=== PATIENT | female | born 1955 | race Caucasian/White ===

== ENCOUNTER 2020-09-25 08:11 | Inpatient (IN) | payer MEDICAID, SELFPAY ==
--- NOTE | 2020-09-23 19:25 | NUR ---
PT WAS ENDORSED BY [facility] NURSE. PT IS CURRENTLY AWAKE AND ALERT. STATED THAT SHE IS HUNGRY. DINNER IS AT BEDSIDE. PT STATED THAT SHE WILL EAT IN A LITTLE BIT. DENIES PAIN.
[~2020-09-25] VITALS: Ht 157.5 cm; Wt 59.0 kg
[2020-09-25 08:15] VITALS: BP 126/66
--- NOTE | 2020-09-25 09:55 | NUR ---
PT MOVED TO BED 6.
--- NOTE | 2020-09-25 10:00 | NUR ---
BIBA FROM HOME C/O HYPOGLYCEMIA, PT WAS FOUND BY FAMILY AT 0500 UNRESPONSIVE BY FAMILY. BS 50 UPON EMS ARRIVAL. PT RECEIVED 1MG OF GLUCAGON, AND D10 VIA IV RAC 20G BLOOD SUGAR 82. AT ER PT AAOX4. HX DM, HTN, ARTHRITIS.
--- NOTE | 2020-09-25 10:20 | NUR ---
Note undone in EDM - 09/25/20 at 1058 by MEDCS1 BIBA FROM HOME C/O HYPOGLYCEMIA, PT WAS FOUND BY FAMILY AT 0500 UNRESPONSIVE BY FAMILY. BS 50 UPON EMS ARRIVAL. PT RECEIVED 1MG OF GLUCAGON, AND D10 VIA IV RAC 20G. AT ER PT AAOX4. HX DM, HTN, ARTHRITIS.
--- NOTE | 2020-09-25 11:28 | NUR ---
LAB AT BEDSIDE
[2020-09-25 11:47] LABS: HEMATOCRIT 32.5 % (36-48); HEMOGLOBIN 10.1 g/dL (12.0-16.0); MEAN CORPUSCULAR HEMOGLOBIN 23 pg (27-31); MEAN CORPUSCULAR HGB CONC 31 g/dL (33-37); MEAN CORPUSCULAR VOLUME 75.2 fL (80-94); PLATELET COUNT (AUTO) 410 K/uL (140-450); RED BLOOD CELL COUNT(AUTO) 4.32 MIL/uL (4.20-5.40); RED CELL DISTRIBUTION WIDTH 17.8 % (11.6-13.7)
[2020-09-25 11:55] LABS: ANION GAP 15.5 (8-16); CARBON DIOXIDE 23.9 mmol/L (21-32); CREATININE 0.5 mg/dL (0.6-1.3); POTASSIUM 3.4 mmol/L (3.5-5.1)
[2020-09-25 12:05] LABS: WHITE BLOOD COUNT (AUTO) 34.8 K/uL (4.8-10.8)
[2020-09-25 12:06] LABS: LYMPHOCYTES % (MANUAL) 2 % (20-46); MONOCYTES % (MANUAL) 7 % (5-12)
[2020-09-25] MEDS ORDERED: NACL 0.9% 2,000 ML IV ONE (12:45)
[2020-09-25] MEDS ORDERED: cefTRIAXone 1,000 MG VIAL ONE (12:58)
--- NOTE | 2020-09-25 13:01 | NUR ---
GENERALIZED RASHES . NOTIFIED DR JACQUES.
--- NOTE | 2020-09-25 15:37 | NUR ---
Sabra jones in [facility] - 09/25/20 at 1634 by MED1 PT CAN'T PROVIDE URINE AT THIS TIME.
[2020-09-25] MEDS ORDERED: DOCUSATE SODIUM 100 MG GELCAP PO PRN (15:50)
[2020-09-25] MEDS ORDERED: ALBUTEROL HFA MDI 90 MCG/ACTUATION 8 GM INH PRN (15:50)
[2020-09-25 16:28] LABS: BILIRUBIN,URINE NEGATIVE (NEGATIVE); BLOOD, URINE NEGATIVE (NEGATIVE); COLOR,URINE YELLOW (YELLOW); LEUKOCYTE ESTERASE ,URINE TRACE (NEGATIVE); NITRITE, URINE POSITIVE (NEGATIVE); PH,URINE 5.5 (5.0-9.0); UGLUCOSE NEGATIVE (NEGATIVE)
[2020-09-25 16:29] LABS: APPEARANCE,URINE HAZY (CLEAR)
--- NOTE | 2020-09-25 16:34 | NUR ---
MRSA & COVID CARA SWAB COLLECTED.
[2020-09-25 16:41] LABS: RBC,URINE NONE SEEN /HPF (0-5)
[2020-09-25 16:59] LABS: CHOL/HDL RATIO 2.9 (1-4.5); FREE T4 (FREE THYROXINE) 1.28 ng/dL (0.76-1.46); THYROID STIMULATING HORMONE 0.55 uIU/mL (0.34-3.74)
[2020-09-25] MEDS: DEXT 5% /NACL 0.9% 1,000 ML IV SCH (17:08)
[2020-09-25] MEDS: BLOOD GLUCOSE MONITORING 1 DEV DEV FS SCH ×2 (17:09→21:07)
[2020-09-25] MEDS ORDERED: DEXTROSE 50% 50 ML SYR IVP PRN (17:20)
[2020-09-25] MEDS: DEXTROSE 50% 50 ML SYR IVP PRN ×2 (17:34→21:08)
--- NOTE | 2020-09-25 17:34 | NUR ---
BS 38, GAVE D5% 50ML IV.
--- NOTE | 2020-09-25 17:38 | NUR ---
PTMOVED TO BED 12.
--- NOTE | 2020-09-25 17:50 | NUR ---
BLOOD SUGAR 98 AT THIS TIME.
[2020-09-25] MEDS ORDERED: INSULIN LISPRO SLIDING SCALE 100 UNITS/ML VIAL SUBQ PRN (18:15)
--- NOTE | 2020-09-25 19:28 | NUR ---
Pt report given to areli amin. Transfer of care at this time.
--- NOTE | 2020-09-25 19:30 | NUR ---
Report received from RAS Pagan for continuation of care.
--- NOTE | 2020-09-25 20:10 | NUR ---
PT RESTING IN BED, LOCKED AND IN LOWEST POSITION , HOB ELEVATED , SIDE RAIL X 2 FOR PT SAFETY. VSS.
[2020-09-25] MEDS ORDERED: BLOOD GLUCOSE MONITORING 1 DEV DEV FS SCH (21:00)
--- NOTE | 2020-09-25 21:00 | NUR ---
Sabra jones in [facility] - 09/26/20 at 0535 by NANCY PT ATE 40% OF DINNER.
--- NOTE | 2020-09-25 21:07 | NUR ---
PT CURRENT [facility] 24 - INITIATE PROTOCOL , ADMINISTER D50 IVP AT THIS TIME. PT REPOSITIONED , SITTING UPRIGHT AND DINNER PROVIDED AT THIS TIME WELL.
--- NOTE | 2020-09-25 22:00 | NUR ---
PT ATE 40% OF DINNER.
--- NOTE | 2020-09-25 23:50 | NUR ---
20G IV IN RT A/C INFILTRATED .IV removed, catheter intact and site benign. Applied folded 4x4 gauze and tape to stop bleeding. Applied warm compresses on infiltration site. New IV placed on left wrist 22g. New IV flushed w/ 10cc NS , no redness, swelling or pain noted at IV site.
--- NOTE | 2020-09-26 01:00 | NUR ---
PT RESTING IN BED, LOCKED AND IN LOWEST POSITION ,HOB ELEVATED, SIDE RAIL X2 FOR PT SAFETY. PT STATES NO PAIN AT RT A/C AT THIS TIME.
--- NOTE | 2020-09-26 01:10 | NUR ---
PT AMBULATED TO RESTROOM W/ STEADY GAIT.
--- NOTE | 2020-09-26 01:26 | NUR ---
PT ACTING SLIGHTLY ALTERED. ACCU CHECK ADMINISTERED CURRENT FBS 29. PER PROTOCOL ADMINISTERED D50 IVP . PT GIVEN 2 OJ BOXES AT THIS TIME. NO ACUTE DISTRESS NOTED.
--- NOTE | 2020-09-26 02:21 | NUR ---
Sabra jones in [facility] - 09/26/20 at 0232 by NANCY PT AMBULATED TO RESTROOM W/ STEADY GAIT.
--- NOTE | 2020-09-26 02:31 | NUR ---
PT A/O X4. PT AMBULATED TO RESTROOM W/ STEADY GAIT.
[2020-09-26] MEDS: DEXTROSE 50% 50 ML SYR IVP PRN ×2 (02:33→07:13)
--- NOTE | 2020-09-26 03:02 | NUR ---
PT FBS 60. PT PROVIDED 2 BOXES OF OJ. WILL CONTINUE TO MONITOR.
--- NOTE | 2020-09-26 04:10 | NUR ---
PT AMBULATED TO RESTROOM W/ STEADY GAIT.
--- NOTE | 2020-09-26 04:50 | NUR ---
PT RESTING IN BED, LOCKED AND IN LOWEST POSITION , HOB ELEVATED, SIDE RAIL X 2. RR EVEN AND UNLABORED. VSS.
--- NOTE | 2020-09-26 07:07 | NUR ---
PT CURRENT FBS 57 - PER DIABETIC PROTOCOL ADMINISTERED D50% IVP.
[2020-09-26] MEDS: BLOOD GLUCOSE MONITORING 1 DEV DEV FS SCH ×4 (07:10→21:54)
--- NOTE | 2020-09-26 07:20 | NUR ---
PT STATED SHE FEELS STEADY - PT AMBULATED TO RESTROOM W/ STEADY GAIT.
--- NOTE | 2020-09-26 07:24 | NUR ---
REPORT GIVEN TO RAS ROUSSEAU FOR TRANSFER OF CARE.
--- NOTE | 2020-09-26 07:25 | NUR ---
Report received from RAS Tam. Transfer of care at this time.
--- NOTE | 2020-09-26 07:30 | NUR ---
Pt resting, HOB elevated, no complaints at this time. VSS, will continue to monitor.
--- NOTE | 2020-09-26 08:02 | NUR ---
Pt ambulated to restroom with a steady gait.
[2020-09-26 08:03] LABS: BASOPHILS # (AUTO) 0.2 K/uL (0.00-0.22); BASOPHILS % (AUTO) 0.7 % (0.0-2.0); EOSINOPHILS # (AUTO) 0.4 K/uL (0-0.4); EOSINOPHILS % (AUTO) 1.4 % (0.0-4.0); HEMATOCRIT 26.8 % (36-48); HEMOGLOBIN 8.5 g/dL (12.0-16.0); LYMPHOCYTES # (AUTO) 1.6 K/uL (2.5-16.5); LYMPHOCYTES % (AUTO) 6.4 % (20.5-51.1); MEAN CORPUSCULAR HEMOGLOBIN 24 pg (27-31); MEAN CORPUSCULAR HGB CONC 32 g/dL (33-37); MEAN CORPUSCULAR VOLUME 74.2 fL (80-94); MONOCYTES # (AUTO) 1.2 K/uL (0.8-1.0); MONOCYTES % (AUTO) 4.8 % (1.7-9.3); NEUTROPHILS # (AUTO) 21.1 K/uL (1.8-7.7); NEUTROPHILS % (AUTO) 86.7 % (42.2-75.2); PLATELET COUNT (AUTO) 425 K/uL (140-450); RED BLOOD CELL COUNT(AUTO) 3.61 MIL/uL (4.20-5.40); RED CELL DISTRIBUTION WIDTH 17.6 % (11.6-13.7); WHITE BLOOD COUNT (AUTO) 24.3 K/uL (4.8-10.8)
--- NOTE | 2020-09-26 08:10 | NUR ---
Pt provided with breakfast tray, HOB elevated.
[2020-09-26] MEDS: DEXT 5% /NACL 0.9% 1,000 ML IV SCH (08:40)
--- NOTE | 2020-09-26 09:17 | NUR ---
Dr. Parker at pt bedside for evaluation, possible discharge.
--- NOTE | 2020-09-26 09:28 | NUR ---
PATIENT HAS BEEN SCREENED AND CATEGORIZED MODERATE NUTRITION RISK. PATIENT WILL BE SEEN WITHIN 3-5 DAYS OF ADMISSION. 09/28/20 09/30/[address]
[2020-09-26] MEDS ORDERED: cefTRIAXone 1,000 MG VIAL ONE (09:38)
[2020-09-26 09:47] LABS: ANION GAP 14.2 (8-16); CARBON DIOXIDE 23.7 mmol/L (21-32); CREATININE 0.5 mg/dL (0.6-1.3)
[2020-09-26] MEDS: ASCORBIC ACID 500 MG TAB PO SCH (09:52)
[2020-09-26] MEDS: ZINC SULF 220 MG CAP PO SCH (09:53)
[2020-09-26] MEDS: AZITHROMYCIN 250 MG TAB PO SCH (09:53)
--- NOTE | 2020-09-26 10:05 | NUR ---
CRITICAL LAB VALUE called Potassium level 2.9
[2020-09-26 10:06] LABS: POTASSIUM 2.9 mmol/L (3.5-5.1)
[2020-09-26] MEDS: POTASSIUM CHLORIDE 10 MEQ TABER PO PRN (11:02)
--- NOTE | 2020-09-26 11:40 | NUR ---
Sabra jones in ED - 09/26/20 at 1208 by MED1 Spoke with pharmacy for insulin drip per order.
--- NOTE | 2020-09-26 12:07 | NUR ---
Pt resting, repositioned self for comfort, VSS, will continue to monitor.
--- NOTE | 2020-09-26 14:39 | NUR ---
Dr. Parker at pt bedside, pt will not be discharged, WBC increased requires admission.
--- NOTE | 2020-09-26 14:55 | NUR ---
Pt walked to restroom with a steady gait.
--- NOTE | 2020-09-26 15:00 | NUR ---
Metalworking Instructor at pt bedside for evaluation.
--- NOTE | 2020-09-26 17:41 | NUR ---
Spoke with Brandy Hawkins [phone] for pt updates.
--- NOTE | 2020-09-26 18:09 | NUR ---
Pt ambulated to bathroom, VSS, will continue to monitor.
--- NOTE | 2020-09-26 19:27 | NUR ---
Gave report to RAS Silver. Transfered care at this time.
--- NOTE | 2020-09-26 19:37 | NUR ---
RECIVED REPORT FROM SOHAM MCGINNIS. CONTINUATION OF CARE. PATIENT LORENZO TO AMBUALTE TO RESTROOM WITH STEADY GAIT. PATIENT REMAINS ON RIVER TRANSPORTATION WORKER. VSS AT THIS TIME. PT DENIES PAIN AT THIS TIME.
--- NOTE | 2020-09-26 21:48 | NUR ---
PATIENT EATING DINNER AT BEDISDE. PATIENT ATE 100% OF FOOD. PATIENT ABLE TO AMBULATE TO RESTROOM WITH STEADY GAIT. PT PLACED ON POULTRY FARMER MEAT. VSS. DENIES PAIN AT THIS TIME. CALL LIGHT AT BEDSIDE. BED IS LOCKED AND IN LOWEST POSITION.
--- NOTE | 2020-09-27 01:12 | NUR ---
Patient appears to be resting comfortably in bed. Vital Signs within normal limits. Respirations even and unlabored.
[2020-09-27] MEDS: DEXT 5% /NACL 0.9% 1,000 ML IV SCH ×3 (02:02→19:00)
--- NOTE | 2020-09-27 04:16 | NUR ---
Patient appears to be resting comfortably in bed. Vital Signs within normal limits. Respirations even and unlabored.
[2020-09-27 07:12] LABS: T4 (THYROXINE) 6.5 ug/dL (4.5-12.0)
--- NOTE | 2020-09-27 07:30 | NUR ---
RECIEVED REPORT FROM RAS ZAPIEN. TRANSFER OF CARE AT THIS TIME.
--- NOTE | 2020-09-27 07:30 | NUR ---
TRANSFER OF CARE GIVEN TO EDDIE MCGINNIS.
[2020-09-27] MEDS: BLOOD GLUCOSE MONITORING 1 DEV DEV FS SCH ×4 (07:44→21:53)
[2020-09-27 08:32] LABS: BASOPHILS # (AUTO) 0.2 K/uL (0.00-0.22); EOSINOPHILS # (AUTO) 0.7 K/uL (0-0.4); EOSINOPHILS % (AUTO) 4.3 % (0.0-4.0); HEMATOCRIT 26.1 % (36-48); HEMOGLOBIN 8.2 g/dL (12.0-16.0); LYMPHOCYTES # (AUTO) 1.8 K/uL (2.5-16.5); MEAN CORPUSCULAR HEMOGLOBIN 23 pg (27-31); MEAN CORPUSCULAR HGB CONC 32 g/dL (33-37); MEAN CORPUSCULAR VOLUME 74.4 fL (80-94); MONOCYTES # (AUTO) 1.2 K/uL (0.8-1.0); MONOCYTES % (AUTO) 7.3 % (1.7-9.3); NEUTROPHILS # (AUTO) 12.2 K/uL (1.8-7.7); NEUTROPHILS % (AUTO) 76.4 % (42.2-75.2); PLATELET COUNT (AUTO) 430 K/uL (140-450); RED BLOOD CELL COUNT(AUTO) 3.51 MIL/uL (4.20-5.40); RED CELL DISTRIBUTION WIDTH 17.7 % (11.6-13.7)
[2020-09-27 08:57] LABS: ANION GAP 11.8 (8-16); CARBON DIOXIDE 26.8 mmol/L (21-32); CREATININE 0.5 mg/dL (0.6-1.3); POTASSIUM 3.6 mmol/L (3.5-5.1)
--- NOTE | 2020-09-27 09:32 | NUR ---
report given to RAS Valladares via phone
--- NOTE | 2020-09-27 09:32 | NUR ---
RECEIVED REPORT FROM ER NURSE. PT HAS R WRIST 20G INFUSING D5NS AT 60ML/H, SKIN INTACT, AZERBAIJANI SPEAKING. PT ON ROOM AIR, WILL AWAIT PT'S ADMISSION FROM ER.
--- NOTE | 2020-09-27 09:45 | NUR ---
Patient will be admitted to care of dr. sandoval. Admited to tele. Will go to room 111b. Belongings list completed. Report to brennan dykes.
--- NOTE | 2020-09-27 09:49 | NUR ---
PT ARRIVED IN ROOM, PT IS STABLE, OBTAINED MRSA SWAB, INTRODUCE PT TO ROOM, SAFETY MEASURES IN PLACE, WILL CONTINUE TO MONITOR.
[2020-09-27] MEDS: AZITHROMYCIN 250 MG TAB PO SCH (10:27)
[2020-09-27] MEDS: ASCORBIC ACID 500 MG TAB PO SCH (10:27)
[2020-09-27] MEDS: ZINC SULF 220 MG CAP PO SCH (10:28)
--- NOTE | 2020-09-27 10:31 | NUR ---
ADMINISTERED SCHEDULED MEDICATION, MEDICATION EDUCATION PROVIDED. PT TOLERATED WELL. DR LOPEZ EXPLAINED TO PT THAT SHE WILL STAY ONE MORE DAY WBC STILL ELEVATED. PT VERBALIZED UNDERSTANDING. PT IS STABLE, WILL CONTINUE TO MONITOR.
--- NOTE | 2020-09-27 11:48 | NUR ---
ADMINISTERED SCHEDULED MEDICATION, MEDICATION EDUCATION PROVIDED. PT TOLERATED WELL. PT IS STABLE, WILL CONTINUE TO MONITOR.
[2020-09-27] MEDS: INSULIN LISPRO SLIDING SCALE 100 UNITS/ML VIAL SUBQ PRN ×2 (12:20→21:55)
--- NOTE | 2020-09-27 12:20 | NUR ---
ADMINISTERED 2 UNITS OF HUMALOG FOR BLOOD GLUCOSE OF 157, MEDICATION EDUCATION PROVIDED. PT TOLERATED WELL. PT IS STABLE, WILL CONTINUE TO MONITOR.
[2020-09-27 16:00] VITALS: BP 120/66
--- NOTE | 2020-09-27 16:30 | NUR ---
NO HUMALOG COVERAGE, PT IS STABLE, WILL CONTINUE TO MONITOR.
--- NOTE | 2020-09-27 19:20 | NUR ---
ENDORSE PT TO NIGHT NURSE FOR CONTINUITY OF CARE, PT IS STABLE
--- NOTE | 2020-09-27 19:55 | NUR ---
PT IS LAYING IN BED WATHVING TV. BREATHING IS NORMAL AND UNLABORED. PT DENIES PAIN. ABLE TO AMBULATE TO THE BATHROOM. BED IS ON LOW. CALL LIGHT WITHIN REACH. BEDSIDE TABLE PUSHED NEXT TO THE BED. PT EDUCATED ON THE USE OF THE CALL. VERBALIZED UNDERSTANDING. STABLE AT THIS TIME. WILL CONTINUE TO MONITOR
[2020-09-27 20:00] VITALS: BP 126/73
--- NOTE | 2020-09-27 20:55 | NUR ---
PT FINISHED EATING HER DINNER. BLOOD SUGAR IS 179. PT WILL RECEIVE 2 UNITS OF HUMALOG COVERAGE. PT DENIES FEELING DIZZY. WILL CONTINUE TO MONITOR
--- NOTE | 2020-09-27 23:00 | NUR ---
PT IS ASLEEP. BREATHING IS NORMAL AND UNLABORED. PT DOES NOT LOOK TO BE IN PAIN. BED IS IN LOW POSITION. CALL LIGHT WITHIN REACH. PT STABLE AT THIS TIME. WILL CONTINUE TO MONITOR
--- NOTE | 2020-09-28 01:00 | NUR ---
PT CALLED TO USE BATHROOM. PT VOIDED YELLOW AND CLEAR URINE. PT DENIED TROUBLE USING THE BATHROOM. GAIT IS STABLE AND STRONG. BED IS IN LOW POSITION. CALL LIGHT WITHIN REACH. PT STABLE AT THIS TIME. WILL CONTINUE TO MONITOR
--- NOTE | 2020-09-28 03:21 | NUR ---
PT IS ASLEEP. IV PUMP NOT ALARMING. PT NOT IN PAIN. BED IS IN LOW POSITION. CALL LIGHT WITHIN REACH. PT STABLE AT THIS TIME. WILL CONTINUE TO MONITOR
[2020-09-28 04:00] VITALS: BP 111/61
[2020-09-28] MEDS: ACETAMINOPHEN 325 MG TAB PO PRN (06:47)
[2020-09-28] MEDS: BLOOD GLUCOSE MONITORING 1 DEV DEV FS SCH ×4 (06:58→21:17)
[2020-09-28 07:19] LABS: BASOPHILS # (AUTO) 0.3 K/uL (0.00-0.22); BASOPHILS % (AUTO) 1.3 % (0.0-2.0); EOSINOPHILS # (AUTO) 0.5 K/uL (0-0.4); EOSINOPHILS % (AUTO) 2.4 % (0.0-4.0); HEMATOCRIT 26.8 % (36-48); HEMOGLOBIN 8.6 g/dL (12.0-16.0); LYMPHOCYTES # (AUTO) 2.8 K/uL (2.5-16.5); LYMPHOCYTES % (AUTO) 12.9 % (20.5-51.1); MEAN CORPUSCULAR HEMOGLOBIN 24 pg (27-31); MEAN CORPUSCULAR HGB CONC 32 g/dL (33-37); MEAN CORPUSCULAR VOLUME 73.3 fL (80-94); MONOCYTES # (AUTO) 2.1 K/uL (0.8-1.0); MONOCYTES % (AUTO) 9.4 % (1.7-9.3); NEUTROPHILS # (AUTO) 16.2 K/uL (1.8-7.7); PLATELET COUNT (AUTO) 397 K/uL (140-450); RED BLOOD CELL COUNT(AUTO) 3.66 MIL/uL (4.20-5.40); RED CELL DISTRIBUTION WIDTH 17.7 % (11.6-13.7); WHITE BLOOD COUNT (AUTO) 21.9 K/uL (4.8-10.8)
[2020-09-28 07:20] LABS: ANION GAP 13.6 (8-16); CARBON DIOXIDE 26.9 mmol/L (21-32); CREATININE 0.6 mg/dL (0.6-1.3); POTASSIUM 3.5 mmol/L (3.5-5.1)
--- NOTE | 2020-09-28 07:40 | NUR ---
REC'D BEDSIDE ENDORSEMENT FROM NIGHTSHIFT NURSE. WILL CONT W/ POC.
[2020-09-28] MEDS: ASCORBIC ACID 500 MG TAB PO SCH (10:00)
[2020-09-28] MEDS: ZINC SULF 220 MG CAP PO SCH (10:01)
[2020-09-28] MEDS: AZITHROMYCIN 250 MG TAB PO SCH (10:01)
--- NOTE | 2020-09-28 10:26 | NUR ---
ADMINISTERED SCHEDULED MEDS PER MD ORDER. PATIENT TOLERATED WELL. MEDICATION EDUCATION REINFORCEMENT NEEDED D/T LANGUAGE BARRIER. SAFETY MEASURES IN PLACE. WILL CONT TO MONITOR.
[2020-09-28] MEDS: LEVOFLOXACIN 500 MG/D5W PREMIX 100 ML IV SCH (12:27)
[2020-09-28] MEDS: INSULIN LISPRO SLIDING SCALE 100 UNITS/ML VIAL SUBQ PRN (13:48)
--- NOTE | 2020-09-28 13:55 | NUR ---
ADMINISTERED PRN INSULIN FOR BG 154. PATIENT TOLERATED WELL. SAFETY MEASURES IN PLACE. WILL CONT TO MONITOR.
[2020-09-28 16:00] VITALS: BP 97/51
--- NOTE | 2020-09-28 16:30 | NUR ---
ADMINISTERED PRN INSULIN FOR BG 161; ADMINISTERED PRESCRIBED MEDS PER MD ORDER. PATIENT TOLERATED WELL. SAFETY MEASURES IN PLACE. WILL CONT TO MONITOR
--- NOTE | 2020-09-28 18:00 | NUR ---
HOURLY ROUNDING PERFORMED. PATIENT RESTING IN BED. VISIBLE RISE AND FALL OF CHEST. NO SIGNS OF DISTRESS. PATIENT DENIES PAIN. SAFETY MEASURES IN PLACE. WILL CONT TO MONITOR.
--- NOTE | 2020-09-28 19:32 | NUR ---
ENDORSED PATIENT TO NIGHTSHIFT NURSE FOR CONTINUITY OF CARE. PATIENT IS STABLE.
--- NOTE | 2020-09-28 19:35 | NUR ---
RECEIVED PT SLEEPING, EASILY AROUSABLE, AAOX4, DENIES ANY PAIN AND NO SOB NOTED, IVF INFUSING WELL, SAFETY MEASURES IN PLACE, CALL LIGHT WITHIN REACH.
[2020-09-28 20:00] VITALS: BP 98/54
--- NOTE | 2020-09-28 21:20 | NUR ---
PT AMBULATED TO BR WITH STEADY GAIT, VOIDED FREELY, BACK TO BED, BLOOD SUGAR CHECKED WITH 118 RESULT, DUE MEDICATION ADMINISTERED, ALL NEEDS ATTENDED.
--- NOTE | 2020-09-29 00:10 | NUR ---
PT SLEEPING, NO SIGNS OF DISTRESS, IVF INFUSING WELL, CONTINUE TO MONITOR CLOSELY.
[2020-09-29] MEDS: DEXT 5% /NACL 0.9% 1,000 ML IV SCH ×2 (01:55→20:18)
[2020-09-29 04:00] VITALS: BP 108/60
[2020-09-29] MEDS: BLOOD GLUCOSE MONITORING 1 DEV DEV FS SCH ×4 (06:30→20:39)
--- NOTE | 2020-09-29 07:18 | NUR ---
PT SLEEPING, NO SIGNS OF DISTRESS, REPORT GIVEN TO RAS SUMMERS FOR CONTINUITY OF CARE.
--- NOTE | 2020-09-29 07:20 | NUR ---
RECEIVED PATIENT FROM NIGHT NURSE. PATIENT IN BED SLEEPING, CHEST NOTED RISING. NO ACUTE S/S DISTRESS AT THIS TIME. RESP EVEN AND UNLABORED ON ROOM AIR. HOB ELEVATED. LFA 20G INFUSING D5NS 60ML/HR. SAFETY MEASURES IN PLACE. CALL LIGHT WITHIN REACH. WILL CONTINUE TO MONITOR.
--- NOTE | 2020-09-29 09:05 | NUR ---
PATIENT SITTING BY BEDSIDE EATING BREAKFAST. RESP EVEN AND UNLABORED ON ROOM AIR. C/O PAIN TO RIGHT FOOT. WILL MEDICATE APPROPRIATELY. LFA 20G INFUSING D5NS 60ML/HR. NO NOTED DISTRESS AT THIS TIME. MORNING ROUTINE MEDICATIONS GIVEN. PATIENT ABLE TO MAKE NEEDS KNOWN. SAFETY MEASURES IN PLACE. HOB ELEVATED. CALL LIGHT WITHIN REACH. WILL CONTINUE TO MONITOR.
[2020-09-29] MEDS: ZINC SULF 220 MG CAP PO SCH (09:06)
[2020-09-29] MEDS: ASCORBIC ACID 500 MG TAB PO SCH (09:07)
[2020-09-29] MEDS: AZITHROMYCIN 250 MG TAB PO SCH (09:07)
[2020-09-29 09:33] LABS: BASOPHILS # (AUTO) 0.1 K/uL (0.00-0.22); BASOPHILS % (AUTO) 0.5 % (0.0-2.0); EOSINOPHILS # (AUTO) 0.3 K/uL (0-0.4); EOSINOPHILS % (AUTO) 1.6 % (0.0-4.0); HEMATOCRIT 26.3 % (36-48); HEMOGLOBIN 8.3 g/dL (12.0-16.0); LYMPHOCYTES # (AUTO) 1.7 K/uL (2.5-16.5); LYMPHOCYTES % (AUTO) 9.4 % (20.5-51.1); MEAN CORPUSCULAR HEMOGLOBIN 23 pg (27-31); MEAN CORPUSCULAR HGB CONC 32 g/dL (33-37); MEAN CORPUSCULAR VOLUME 73.9 fL (80-94); MONOCYTES # (AUTO) 1.8 K/uL (0.8-1.0); MONOCYTES % (AUTO) 9.7 % (1.7-9.3); NEUTROPHILS # (AUTO) 14.2 K/uL (1.8-7.7); NEUTROPHILS % (AUTO) 78.8 % (42.2-75.2); PLATELET COUNT (AUTO) 305 K/uL (140-450); RED BLOOD CELL COUNT(AUTO) 3.56 MIL/uL (4.20-5.40); RED CELL DISTRIBUTION WIDTH 18.1 % (11.6-13.7); WHITE BLOOD COUNT (AUTO) 18.1 K/uL (4.8-10.8)
[2020-09-29 09:43] LABS: ANION GAP 11.3 (8-16); CARBON DIOXIDE 27.5 mmol/L (21-32); CREATININE 0.5 mg/dL (0.6-1.3)
[2020-09-29 09:46] LABS: MAGNESIUM 2.1 mg/dL (1.8-2.4); PHOSPHORUS 3.3 mg/dL (2.5-4.9)
[2020-09-29 10:07] LABS: POTASSIUM 2.8 mmol/L (3.5-5.1)
[2020-09-29] MEDS: ACETAMINOPHEN 325 MG TAB PO PRN ×2 (10:40→20:13)
[2020-09-29] MEDS: POTASSIUM CHLORIDE 10 MEQ TABER PO PRN (10:40)
[2020-09-29] MEDS: LEVOFLOXACIN 500 MG/D5W PREMIX 100 ML IV SCH (10:40)
[2020-09-29] MEDS ORDERED: POTASSIUM CHLORIDE 40 MEQ, LIDOCAINE MPF 1% 25 MG in NACL 0.9% 250 ML IV SCH (11:00)
--- NOTE | 2020-09-29 11:21 | NUR ---
POTASSIUM 2.8. RECEIVED ORDER FROM DR LOPEZ FOR KRIDER 40 MEQ X1 WITH XYLOCAINE ,AND KDUR 40 JOI PO GIVEN. ORDER CARRIED OUT. PATIENT VERBALIZED UNDERSTANDING
--- NOTE | 2020-09-29 11:29 | NUR ---
COVID PCR COLLECTED BY OR NURSE AND SENT TO LAB PER DR CREWS.
--- NOTE | 2020-09-29 12:10 | NUR ---
PATIENT ASSISTED TO USE THE BATHROOM. PATIENT AMBULATED WITH STEADY GAIT WITH NEARBY ASSIST. NO NOTED DISTRESS AT THIS TIME. CALL LIGHT WITHIN REACH. WILL CONTINUE TO MONITOR.
[2020-09-29] MEDS: INSULIN LISPRO SLIDING SCALE 100 UNITS/ML VIAL SUBQ PRN ×2 (12:14→21:34)
--- NOTE | 2020-09-29 12:51 | NUR ---
SOCIAL WORK NOTE: Patient's Orientation Unable To Assess Information Provided By WALTVANESSA LUCIA - DAUGHTER Comments SW WAS UNABLE TO MEET PATIENT AT BEDSIDE DUE TO MEDICAL CONDITION. SW COMPLETED ASSESSMENT WITH PATIENT'S DAUGHTER. Zipper Trimmer Hand, Realtionship and Phone Number WALT LUCIA DAUGHTER [phone] Healthcare Power of See Wheeler No Does Patient Have a POLST No Identifying Problems No Social Work Triggers Is A Social Work Consult Needed No Mandate Report Filed No Explanation Of Identifying Problems PATIENT IS A 64-YEAR-OLD FEMALE ADMITTED FOR LEUKOCYTOSIS AND HYPOGLYCEMIA. PATIENT HAS PMHX OF DIABETES. Admitted From Home Pre-Admission Level Of Functioning Status Independent/Ambulatory Prior Resources/Services Used In Last 12 Months No Prior Resources Used Prior DME No Prior DME Used Living Situation Lives With Family House Patient Had Caregiver No Home Support No Caregiver Issues Financial Issues No Known Financial Issue Referral To The Financial Counselor Needed No Factors/Needs No D/C Needs Identified Pt/Rep Participated In Discharge Plan Yes Patient/Family Agress With Discharge Plan Yes Discharge Plan Comments TENTATIVE DISCHARGE PLAN IS FOR PATIENT TO RETURN HOME. DC Plan Status Initiated
[2020-09-29] MEDS: CLINDAMYCIN 900 MG in DEXTROSE 5% 100 ML IV SCH ×2 (14:06→20:28)
--- NOTE | 2020-09-29 14:50 | NUR ---
PATIENT AMBULATED TO THE BATHROOM WITHOUT ANY DIFFICULTY. NO NOTED ACUTE S/S DISTRESS. CONTINUE ON ROOM AIR. ABLE TO MAKE NEEDS KNOWN. CALL LIGHT WITHIN REACH. WILL CONTINUE TO MONITOR.
[2020-09-29 16:00] VITALS: BP 107/66
--- NOTE | 2020-09-29 16:54 | NUR ---
PATIENT IN BED AWAKE AND ALERT TALKING TO ROOMMATE. DENIED OF PAIN OR SOB, ON ROOM AIR. CALL LIGHT WITHIN REACH. WILL CONTINUE TO MONITOR.
--- NOTE | 2020-09-29 18:25 | NUR ---
PATIENT AMBULATED TO BATHROOM WITHOUT ASSIST. NO ACUTE S/S DISTRESS AT THIS TIME. WILL CONTINUE TO MONITOR.
--- NOTE | 2020-09-29 19:25 | NUR ---
ENDORSED PATIENT TO NIGHT NURSE. PATIENT IN STABLE CONDITION.
--- NOTE | 2020-09-29 19:27 | NUR ---
RECEIVED REPORT FROM TARYN SUMMERS. PT AOX4 ON ROOM AIR. NO S/S RESPIRATORY DISTRESS. NO C/O PAIN AT THIS TIME. IV SITE LFA 20G PATENT INTACT INFUSING IVF ORDERED. SAFETY MEASURES IN PLACE. CALL LIGHT WITHIN REACH. WILL CONTINUE TO MONITOR
[2020-09-29 20:00] VITALS: BP 100/48
--- NOTE | 2020-09-29 20:13 | NUR ---
PRN TYLENOL GIVEN FOR PT TEMP 100.7. COOLING MEASURES ADMINISTERED. PT AOX4, NO DISTRESS NOTED. WILL CONTINUE TO MONITOR
--- NOTE | 2020-09-29 20:30 | NUR ---
ADMINISTERED SCHEDULED MEDS, PT TOLERATED WELL. WILL CONTINUE TO MONITOR
--- NOTE | 2020-09-29 22:00 | NUR ---
PT TEMP 99.0, NO DISTRESS NOTED, WILL CONTINUE TO MONITOR
--- NOTE | 2020-09-29 23:00 | NUR ---
PATIENT ASLEEP IN BED WITH NO ACUTE DISTRESS NOTED. SAFETY MEASURES IN PLACE, WILL CONTINUE TO MONITOR.
--- NOTE | 2020-09-30 02:47 | NUR ---
PT ASLEEP IN BED. NO S/S ACUTE DISTRESS NOTED. WILL CONTINUE TO MONITOR
[2020-09-30 04:00] VITALS: BP_SYST 116; BP_SYST 119; BP_DIAS 52; BP_DIAS 79
[2020-09-30] MEDS: CLINDAMYCIN 900 MG in DEXTROSE 5% 100 ML IV SCH ×3 (04:35→20:49)
[2020-09-30] MEDS: ACETAMINOPHEN 325 MG TAB PO PRN ×2 (05:00→17:13)
--- NOTE | 2020-09-30 05:00 | NUR ---
PRN TYLENOL GIVEN FOR PT TEMP 100.9, COOLING MEASURES AND FLUIDS PROVIDED. WILL CONTINUE TO MONITOR
[2020-09-30] MEDS: BLOOD GLUCOSE MONITORING 1 DEV DEV FS SCH ×4 (06:09→20:54)
[2020-09-30] MEDS: INSULIN LISPRO SLIDING SCALE 100 UNITS/ML VIAL SUBQ PRN ×2 (06:16→22:20)
--- NOTE | 2020-09-30 07:10 | NUR ---
ENDORSED PT TO DAY RN FOR CONTINUITY OF CARE. PT IS IN STABLE CONDITION
--- NOTE | 2020-09-30 07:15 | NUR ---
RECEIVED REPORT FROM NIGHT NURSE FOR CONTINUITY OF CARE. PT IS STABLE. PT IS ASLEEP. PT HAS LFA 20G INFUSING D5NS AT 60 ML/H, SAFETY MEASURES IN PLACE, WILL CONTINUE TO MONITOR.
[2020-09-30 08:00] VITALS: BP 96/52
[2020-09-30] MEDS: ASCORBIC ACID 500 MG TAB PO SCH (09:00)
[2020-09-30] MEDS: ZINC SULF 220 MG CAP PO SCH (09:00)
--- NOTE | 2020-09-30 09:06 | NUR ---
ADMINISTERED SCHEDULED MEDICATION, MEDICATION EDUCATION PROVIDED. PT TOLERATED WELL. PT IS STABLE, WILL CONTINUE TO MONITOR.
[2020-09-30 09:45] LABS: BASOPHILS # (AUTO) 0.1 K/uL (0.00-0.22); BASOPHILS % (AUTO) 0.4 % (0.0-2.0); EOSINOPHILS # (AUTO) 0.4 K/uL (0-0.4); EOSINOPHILS % (AUTO) 1.7 % (0.0-4.0); HEMATOCRIT 25.5 % (36-48); LYMPHOCYTES # (AUTO) 1.7 K/uL (2.5-16.5); LYMPHOCYTES % (AUTO) 8.1 % (20.5-51.1); MEAN CORPUSCULAR HEMOGLOBIN 23 pg (27-31); MEAN CORPUSCULAR HGB CONC 31 g/dL (33-37); MEAN CORPUSCULAR VOLUME 74.3 fL (80-94); MONOCYTES # (AUTO) 1.5 K/uL (0.8-1.0); MONOCYTES % (AUTO) 6.9 % (1.7-9.3); NEUTROPHILS # (AUTO) 17.7 K/uL (1.8-7.7); NEUTROPHILS % (AUTO) 82.9 % (42.2-75.2); PLATELET COUNT (AUTO) 283 K/uL (140-450); RED BLOOD CELL COUNT(AUTO) 3.43 MIL/uL (4.20-5.40); RED CELL DISTRIBUTION WIDTH 18.2 % (11.6-13.7); WHITE BLOOD COUNT (AUTO) 21.3 K/uL (4.8-10.8)
[2020-09-30 09:55] LABS: ANION GAP 11.8 (8-16); CARBON DIOXIDE 26.2 mmol/L (21-32); CREATININE 0.6 mg/dL (0.6-1.3)
[2020-09-30 10:13] LABS: MAGNESIUM 1.5 mg/dL (1.8-2.4)
--- NOTE | 2020-09-30 10:23 | NUR ---
NOTIFIED DR LOPEZ PT'S MAGNESIUM IS 1.5, RECEIVED TORB FOR MAG OX 800MG PO DAILY STARTING NOW. WILL INPUT ORDER AND CARRY IT OUT.
[2020-09-30] MEDS: MAGNESIUM OXIDE 400 MG TAB PO SCH (11:47)
[2020-09-30] MEDS: LEVOFLOXACIN 500 MG/D5W PREMIX 100 ML IV SCH (11:48)
[2020-09-30] MEDS: POTASSIUM CHLORIDE 10 MEQ TABER PO PRN (11:48)
--- NOTE | 2020-09-30 11:54 | NUR ---
ADMINISTERED SCHEDULED MEDICATION, MEDICATION EDUCATION PROVIDED. PT TOLERATED WELL. PT IS STABLE, WILL CONTINUE TO MONITOR.
[2020-09-30] MEDS: DEXT 5% /NACL 0.9% 1,000 ML IV SCH ×2 (12:30→22:19)
--- NOTE | 2020-09-30 13:27 | NUR ---
ADMINISTERED SCHEDULED MEDICATION, MEDICATION EDUCATION PROVIDED. PT TOLERATED WELL. PT IS STABLE, WILL CONTINUE TO MONITOR.
--- NOTE | 2020-09-30 14:58 | NUR ---
09/30/20 RD INITIAL ASSESSMENT COMPLETED PLEASE REFER TO NUTRITION ASSESSMENT UNDER CARE ACTIVITY FOR ESTIMATED NUTRITIONAL NEEDS. RD RECOMMENDATIONS: 1. CONTINUE 60GM CCHO DIET; SUFFICIENT TO MEET ESTIMATED NEEDS. 2. ENCOURAGE PO INTAKE; ASSIST NEEDED. 3. F/U 3-5 DAYS; MODERATE RISK JORGE LUIS LONDONO MBA, RD
[2020-09-30 16:00] VITALS: BP 96/56
--- NOTE | 2020-09-30 17:13 | NUR ---
ADMINISTERED TYLENOL FOR FEVER OF 100.7, MEDICATION EDUCATION PROVIDED. COOLING MEASURES IN PLACE, CALL LIGHT WITHIN REACH, WILL CONTINUE TO MONITOR.
--- NOTE | 2020-09-30 19:17 | NUR ---
ENDORSE PT TO NIGHT NURSE FOR CONTINUITY OF CARE, PT IS STABLE
[2020-09-30 20:00] VITALS: BP 93/55
--- NOTE | 2020-09-30 20:00 | NUR ---
RECEIVED PATIENT AWAKE IN BED. PT ON RA, NO SOB OR C/O DISCOMFORT AT THIS TIME. BED LOWERED WITH CALL LIGHT WITHIN REACH. WILL CONTINUE TO MONITOR
--- NOTE | 2020-09-30 23:00 | NUR ---
PT AMBULATED TO THE BATHROOM TO VOID.
--- NOTE | 2020-10-01 03:16 | NUR ---
PT ASLEEP IN BED AT THIS TIME. NO S/S OF DISTRESS NOTED
[2020-10-01 04:00] VITALS: BP 99/56
[2020-10-01] MEDS: CLINDAMYCIN 900 MG in DEXTROSE 5% 100 ML IV SCH ×3 (04:56→21:00)
[2020-10-01] MEDS: BLOOD GLUCOSE MONITORING 1 DEV DEV FS SCH ×4 (06:43→21:00)
[2020-10-01] MEDS: ACETAMINOPHEN 325 MG TAB PO PRN ×2 (07:08→13:37)
--- NOTE | 2020-10-01 07:45 | NUR ---
PT REPORT GIVEN TO AM NURSE
--- NOTE | 2020-10-01 07:57 | NUR ---
REC'D REPORT FROM METAL CRAFTS TEACHER NURSE, Keenan/Ox4, RA. CALL LIGHT WITHIN REACHING, PT RESTING, ON TELEPHONE CALL, BED LOWEST POSITION.
[2020-10-01 08:00] VITALS: BP 95/51
[2020-10-01 09:01] LABS: BASOPHILS # (AUTO) 0.1 K/uL (0.00-0.22); BASOPHILS % (AUTO) 0.6 % (0.0-2.0); EOSINOPHILS # (AUTO) 0.4 K/uL (0-0.4); EOSINOPHILS % (AUTO) 2.2 % (0.0-4.0); HEMATOCRIT 23.7 % (36-48); HEMOGLOBIN 7.4 g/dL (12.0-16.0); LYMPHOCYTES # (AUTO) 1.9 K/uL (2.5-16.5); LYMPHOCYTES % (AUTO) 10.2 % (20.5-51.1); MEAN CORPUSCULAR HEMOGLOBIN 23 pg (27-31); MEAN CORPUSCULAR HGB CONC 31 g/dL (33-37); MEAN CORPUSCULAR VOLUME 74.3 fL (80-94); MONOCYTES # (AUTO) 1.3 K/uL (0.8-1.0); MONOCYTES % (AUTO) 7.1 % (1.7-9.3); NEUTROPHILS # (AUTO) 15.1 K/uL (1.8-7.7); NEUTROPHILS % (AUTO) 79.9 % (42.2-75.2); PLATELET COUNT (AUTO) 300 K/uL (140-450); RED BLOOD CELL COUNT(AUTO) 3.19 MIL/uL (4.20-5.40); RED CELL DISTRIBUTION WIDTH 18.1 % (11.6-13.7)
[2020-10-01 09:24] LABS: CARBON DIOXIDE 25.7 mmol/L (21-32); CREATININE 0.5 mg/dL (0.6-1.3); POTASSIUM 3.7 mmol/L (3.5-5.1)
[2020-10-01] MEDS: MAGNESIUM OXIDE 400 MG TAB PO SCH (09:56)
[2020-10-01] MEDS: ASCORBIC ACID 500 MG TAB PO SCH (09:57)
[2020-10-01] MEDS: ZINC SULF 220 MG CAP PO SCH (09:57)
--- NOTE | 2020-10-01 09:59 | NUR ---
ADMINISTERED MEDICATIONS PER MD ORDER, PT TOLERATED PROCEDURE WELL. PT ON RA.
[2020-10-01] MEDS: ONDANSETRON 4 MG/2 ML VIAL IM/IVP PRN (10:09)
--- NOTE | 2020-10-01 10:10 | NUR ---
PT C/O NAUSEA AFTER EATING, INFORMED HER SHE HAD ZOFRAN PRN AND PT REQUESTED FOR IT TO BE ADMINISTERED. PT IV FLUSHED, PATENT, PT TOLERATED PROCEDURE WELL.
[2020-10-01] MEDS: LEVOFLOXACIN 500 MG/D5W PREMIX 100 ML IV SCH (11:33)
--- NOTE | 2020-10-01 11:46 | NUR ---
PERFORMED FINGER GLUCOSE MONITORING, PT CURRENTLY 115. ADMINISTERED ABX PER MD ORDER, PT TOLERATED PROCEDURE WELL. STABLE
--- NOTE | 2020-10-01 14:17 | NUR ---
SPOKE TO MICHAEL ANGULO AND UPDATED ON PT'S CURRENT CONDITION WHICH IS STABLE, HAS GOOD APPETITE AND RECEIVING HIS ANTIVIRAL IV MEDICATIONS.
[2020-10-01 16:00] VITALS: BP 97/54
--- NOTE | 2020-10-01 18:42 | NUR ---
PT STABLE, WALKING AROUND TO RESTROOM, RA. CALL LIGHT WITHIN REACH.
--- NOTE | 2020-10-01 19:30 | NUR ---
RECEIVED PATIENT FROM AM SHIFT NURSE FOR CONTINUITY OF CARE. AAOX4. RESPIRATIONS EVEN, UNLABORED. SKIN WARM, DRY. IV SITE TO LEFT AC 24G PATENT/INTACT, INFUSING FLUIDS WELL. NO C/O PAIN. NO S/S ACUTE DISTRESS. ABDOMEN SOFT, NONTENDER, NONDISTENDED. BOWEL SOUNDS ACTIVE X4 QUADRANTS. PATIENT IS CONTINENT OF B/B. PLAN OF CARE DISCUSSED. CALL LIGHT WITHIN REACH.
--- NOTE | 2020-10-01 19:34 | NUR ---
ENDORSED PT TO WET WHEELER NURSE, PT STABLE, HAVING DINNER. RA
--- NOTE | 2020-10-01 21:30 | NUR ---
DUE MEDS GIVEN. BLOOD GLUCOSE 188 MG/DL. COVERAGE GIVEN ORDERED. CALL LIGHT WITHIN REACH.
[2020-10-01] MEDS: NACL 0.9% 1,000 ML IV SCH (21:40)
--- NOTE | 2020-10-01 23:00 | NUR ---
PATIENT IS RESTING COMFORTABLY IN BED. NO S/S ACUTE DISTRESS. CALL LIGHT WITHIN REACH AT ALL TIMES.
--- NOTE | 2020-10-02 01:00 | NUR ---
MADE ROUNDS. PATIENT IS ASLEEP. NO S/S ACUTE DISTRESS. CALL LIGHT WITHIN REACH.
--- NOTE | 2020-10-02 03:40 | NUR ---
PATIENT IS ASLEEP. NO S/S ACUTE DISTRESS. CALL LIGHT WITHIN REACH. FREQUENT ROUNDS MADE BY ALL STAFF.
[2020-10-02 04:00] VITALS: BP 105/57
--- NOTE | 2020-10-02 05:00 | NUR ---
PATIENT IS IN THE RESTROOM. NO S/S ACUTE DISTRESS. CALL LIGHT WITHIN REACH.
[2020-10-02] MEDS: CLINDAMYCIN 900 MG in DEXTROSE 5% 100 ML IV SCH ×3 (05:15→21:02)
[2020-10-02] MEDS: BLOOD GLUCOSE MONITORING 1 DEV DEV FS SCH ×4 (06:49→21:12)
[2020-10-02] MEDS: NACL 0.9% 1,000 ML IV SCH ×2 (07:40→19:17)
--- NOTE | 2020-10-02 07:40 | NUR ---
ENDORSED PATIENT TO AM SHIFT NURSE FOR CONTINUITY OF CARE.
[2020-10-02 08:00] VITALS: BP 110/62
[2020-10-02 08:22] LABS: BASOPHILS # (AUTO) 0.1 K/uL (0.00-0.22); BASOPHILS % (AUTO) 0.4 % (0.0-2.0); EOSINOPHILS # (AUTO) 0.3 K/uL (0-0.4); EOSINOPHILS % (AUTO) 1.5 % (0.0-4.0); HEMATOCRIT 24.1 % (36-48); HEMOGLOBIN 7.6 g/dL (12.0-16.0); LYMPHOCYTES # (AUTO) 1.4 K/uL (2.5-16.5); LYMPHOCYTES % (AUTO) 6.7 % (20.5-51.1); MEAN CORPUSCULAR HEMOGLOBIN 23 pg (27-31); MEAN CORPUSCULAR HGB CONC 31 g/dL (33-37); MEAN CORPUSCULAR VOLUME 73.4 fL (80-94); MONOCYTES # (AUTO) 1.4 K/uL (0.8-1.0); MONOCYTES % (AUTO) 6.5 % (1.7-9.3); NEUTROPHILS # (AUTO) 18.1 K/uL (1.8-7.7); NEUTROPHILS % (AUTO) 84.9 % (42.2-75.2); PLATELET COUNT (AUTO) 339 K/uL (140-450); RED BLOOD CELL COUNT(AUTO) 3.28 MIL/uL (4.20-5.40); RED CELL DISTRIBUTION WIDTH 18.5 % (11.6-13.7); WHITE BLOOD COUNT (AUTO) 21.3 K/uL (4.8-10.8)
[2020-10-02 08:49] LABS: ANION GAP 12.8 (8-16); CARBON DIOXIDE 26.6 mmol/L (21-32); CREATININE 0.5 mg/dL (0.6-1.3); POTASSIUM 3.4 mmol/L (3.5-5.1)
[2020-10-02 08:50] LABS: MAGNESIUM 1.6 mg/dL (1.8-2.4); PHOSPHORUS 4.2 mg/dL (2.5-4.9)
[2020-10-02] MEDS: MAGNESIUM OXIDE 400 MG TAB PO SCH (09:13)
[2020-10-02] MEDS: ZINC SULF 220 MG CAP PO SCH (09:13)
[2020-10-02] MEDS: ASCORBIC ACID 500 MG TAB PO SCH (09:13)
--- NOTE | 2020-10-02 09:18 | NUR ---
SCHEDULED MEDICATIONS GIVEN, K DUR GIVEN FOR K+ 3.4, EDUCATION PROVIDED. SAFETY MEASURES IN PLACE, WILL CONTINUE TO MONITOR.
[2020-10-02] MEDS: POTASSIUM CHLORIDE 10 MEQ TABER PO PRN (09:24)
[2020-10-02] MEDS ORDERED: MAG SULF 2000 MG/WATER PREMIX 50 ML IV SCH (10:45)
[2020-10-02] MEDS: LEVOFLOXACIN 500 MG/D5W PREMIX 100 ML IV SCH (11:03)
--- NOTE | 2020-10-02 11:10 | NUR ---
LEVAQUIN GIVEN VIA IVPB, 2 UNITS OF HUMALOG GIVEN FOR BS LEVEL 162. EDUCATION PROVIDED. SAFETY MEASURES IN PLACE, WILL CONTINUE TO MONITOR.
[2020-10-02] MEDS: INSULIN LISPRO SLIDING SCALE 100 UNITS/ML VIAL SUBQ PRN ×3 (11:14→21:17)
--- NOTE | 2020-10-02 12:19 | NUR ---
MAGNESIUM GIVEN FOR MG LEVEL 1.6. EDUCATION PROVIDED. SAFETY MEASURES IN PLACE, WILL CONTINUE TO MONITOR.
[2020-10-02 16:00] VITALS: BP 116/51
[2020-10-02] MEDS: HYDROcodone/APAP 7.5/325 MG 1 TAB PO PRN (16:24)
--- NOTE | 2020-10-02 16:30 | NUR ---
2 UNITS OF HUMALOG GIVEN FOR BLOOD GLUCOSE LEVEL 151. NORCO GIVEN FOR JOINT PAIN. 03/09. EDUCATION PROVIDED. SAFETY MEASURES IN PLACE, WILL CONTINUE TO MONITOR.
--- NOTE | 2020-10-02 19:30 | NUR ---
AWAKE,ALERT AND ORIENTED.RESP.UNLABORED IN RA.LUNGS CLEAR.IVF INFUSING WELL.CALL LIGHT IN REACH.NO C/O PAIN OR DISCOMFORT NOW.WILL CONT.MONITORING.
[2020-10-02 20:00] VITALS: BP 101/56
--- NOTE | 2020-10-03 | NUR ---
UP=276 AT 2100/COVERED W/HUMALOG.NO DISTRESS NOTED NOW.VS STABLE.
[2020-10-03 04:00] VITALS: BP 115/62
[2020-10-03] MEDS: CLINDAMYCIN 900 MG in DEXTROSE 5% 100 ML IV SCH ×3 (04:56→20:32)
[2020-10-03] MEDS: BLOOD GLUCOSE MONITORING 1 DEV DEV FS SCH ×4 (07:00→20:55)
--- NOTE | 2020-10-03 07:01 | NUR ---
SLEPT WELL.PI=215.NO COVERAGE NEEDED.CONDITION STABLE.
--- NOTE | 2020-10-03 07:17 | NUR ---
RECEIVED REPORT FROM [employer] SOCIAL SCIENCE TEACHER RN FOR CONTINUITY OF CARE. PATIENT AWAKE, ALERT, ABLE TO MAKE NEEDS KNOWN. RESPIRATORY EVEN AND UNLABORED IN RA. SKIN WARM AND DRY. IV SITE RIGHT FOREARM PATENT, INFUSING NS@ 100ML/HR. ABDOMEN SOFT NON TENDER. NO ACUTE DISTRESS NOTED AT THIS TIME. SAFETY MEASURES IN PLACE, CALL LIGHT WITHIN REACH. WILL CONTINUE TO MONITOR.
[2020-10-03 09:29] LABS: HEMATOCRIT 23.6 % (36-48); HEMOGLOBIN 7.5 g/dL (12.0-16.0); MEAN CORPUSCULAR HEMOGLOBIN 23 pg (27-31); MEAN CORPUSCULAR HGB CONC 32 g/dL (33-37); MEAN CORPUSCULAR VOLUME 73.1 fL (80-94); PLATELET COUNT (AUTO) 387 K/uL (140-450); RED BLOOD CELL COUNT(AUTO) 3.23 MIL/uL (4.20-5.40); RED CELL DISTRIBUTION WIDTH 18.4 % (11.6-13.7)
[2020-10-03 09:30] LABS: ANION GAP 10.3 (8-16); CARBON DIOXIDE 26.7 mmol/L (21-32); CREATININE 0.5 mg/dL (0.6-1.3)
[2020-10-03] MEDS: NACL 0.9% 1,000 ML IV SCH ×2 (09:30→13:40)
[2020-10-03] MEDS: ZINC SULF 220 MG CAP PO SCH (09:31)
[2020-10-03] MEDS: ASCORBIC ACID 500 MG TAB PO SCH (09:31)
--- NOTE | 2020-10-03 09:37 | NUR ---
SCHEDULED MEDICATIONS GIVEN. EDUCATION PROVIDED. MAG OX HOLD DUE TO PENDING LAB RESULT. WILL FOLLOW UP WITH THE LAB RESULT. SAFETY MEASURES IN PLACE, WILL CONTINUE TO MONITOR.
[2020-10-03 09:52] LABS: MAGNESIUM 2.4 mg/dL (1.8-2.4); PHOSPHORUS 3.4 mg/dL (2.5-4.9)
[2020-10-03 10:03] LABS: WHITE BLOOD COUNT (AUTO) 31.6 K/uL (4.8-10.8)
[2020-10-03 10:04] LABS: EOSINOPHILS % (MANUAL) 1 % (0-4); LYMPHOCYTES % (MANUAL) 4 % (20-46); MONOCYTES % (MANUAL) 3 % (5-12)
[2020-10-03] MEDS: LEVOFLOXACIN 500 MG/D5W PREMIX 100 ML IV SCH (11:19)
[2020-10-03] MEDS: INSULIN LISPRO SLIDING SCALE 100 UNITS/ML VIAL SUBQ PRN ×2 (11:21→20:56)
--- NOTE | 2020-10-03 11:47 | NUR ---
PATIENT COMPLAINT OF SOB ON EXERTION, AND DIZZINESS WHEN SHE WALKED TO THE RESTROOM. CHECKED O2 SAT, 88% IN RA, PUT O2 2L VIA NC, O2 SAT INCREASED TO 96%. HR 125, WILL REPORT TO .
--- NOTE | 2020-10-03 15:02 | NUR ---
MADE ROUNDS, PATIENT RESTING IN BED WITH SEMI HO POSITION AND TALKING OVER THE PHONE. NO ACUTE DISTRESS NOTED, WILL CONTINUE TO MONITOR.
[2020-10-03 16:00] VITALS: BP 97/54
--- NOTE | 2020-10-03 16:12 | NUR ---
ACCUCHECK DONE 144, NO INSULIN COVERAGE NEEDED. WILL CONTINUE TO MONITOR.
[2020-10-03] MEDS: ACETAMINOPHEN 325 MG TAB PO PRN (16:21)
--- NOTE | 2020-10-03 16:30 | NUR ---
INFORMED DR. REGAN THAT PATIENT HAS FEVER, TEMP 101.4. NEW ORDER OBTAINED. WILL CARRY OUT.
--- NOTE | 2020-10-03 19:11 | NUR ---
URINE CULTURE COLLECTED VIA STRAIGHT CATH. PATIENT TOLERATED WELL. SAFETY MEASURES IN PLACE, WILL CONTINUE TO MONITOR.
--- NOTE | 2020-10-03 19:19 | NUR ---
ENDORSED PATIENT TO GOLF BALL COVER TREATER NURSE FOR CONTINUITY OF CARE. PATIENT IN STABLE CONDITION IN ROOM AIR.
--- NOTE | 2020-10-03 19:21 | NUR ---
RECEIVED REPORT FROM DAY SHIFT NURSE. PT IN BED, AAOX4, AMBULATORY, ABLE TO MAKE NEEDS KNOWN. RESPIRATIONS EVEN AND UNLABORED TO ROOM AIR. SKIN IS WARM, DRY, AND INTACT. ABDOMEN IS SOFT AND NON-TENDER, ACTIVE BOWEL SOUNDS NOTED. PT WITH IV ACCESS ON RIGHT FOREARM G 22 PATENT AND INTACT, IVF INFUSING WELL. PT DENIES ANY PAIN OR DISCOMFORT AT THIS TIME. NO REQUESTS MADE. PT KEPT COMFORTABLE. SAFETY MEASURES IN PLACE, CALL LIGHT WITHIN REACH. WILL CONTINUE TO MONITOR.
[2020-10-03 20:00] VITALS: BP 114/61
--- NOTE | 2020-10-03 20:32 | NUR ---
VS STABLE. SCHEDULED MEDS GIVEN. PT DENIES ANY PAIN OR DISCOMFORT. PT NOT IN DISTRESS. CALL LIGHT WITHIN REACH. WILL CONTINUE TO MONITOR.
--- NOTE | 2020-10-03 21:30 | NUR ---
PT ACCIDENTALLY PULLED IV ACCESS OUT, CANNULA INTACT. NEW IV ACCESS INSERTED ON LEFT WRIST G22 PATENT AND INTACT. IVF INFUSING WELL. WILL CONTINUE TO MONITOR.
--- NOTE | 2020-10-04 00:03 | NUR ---
PT ASLEEP. VISIBLE CHEST RISE AND FALL NOTED. NO S/SX OF PAIN OR DISCOMFORT NOTED. CALL LIGHT WITHIN REACH. WILL CONTINUE TO MONITOR.
[2020-10-04] MEDS: NACL 0.9% 1,000 ML IV SCH ×3 (00:19→19:40)
--- NOTE | 2020-10-04 02:28 | NUR ---
ROUNDS MADE, PT IN BED SLEEPING. PT NOT IN DISTRESS. PT KEPT SAFE AND COMFORTABLE. WILL CONTINUE TO MONITOR.
[2020-10-04] MEDS: HYDROcodone/APAP 7.5/325 MG 1 TAB PO PRN (03:44)
--- NOTE | 2020-10-04 03:44 | NUR ---
PT COMPLAINING OF JAW PAIN 03/09. PRN NORCO GIVEN ORDERED. WILL CONTINUE TO MONITOR.
[2020-10-04] MEDS: CLINDAMYCIN 900 MG in DEXTROSE 5% 100 ML IV SCH ×3 (05:06→20:06)
[2020-10-04 06:00] VITALS: BP 108/62
[2020-10-04] MEDS: BLOOD GLUCOSE MONITORING 1 DEV DEV FS SCH ×4 (07:02→20:18)
--- NOTE | 2020-10-04 07:38 | NUR ---
endorsed to day shift nurse for continuity of care
--- NOTE | 2020-10-04 07:55 | NUR ---
RECEIVED PATIENT FOR CONTINUITY OF CARE. PATIENT IN BED SLEEPING, CHEST NOTED RISING. RESP EVEN AND UNLABORED ON ROOM AIR. NO ACUTE S/S DISTRESS. RFA 22G INFUSING NS 100. HOB ELEVATED. SAFETY MEASURES IN PLACE. CALL LIGHT WITHIN REACH. WILL CONTINUE TO MONITOR.
[2020-10-04] MEDS: ASCORBIC ACID 500 MG TAB PO SCH (08:34)
[2020-10-04] MEDS: ZINC SULF 220 MG CAP PO SCH (08:35)
--- NOTE | 2020-10-04 08:35 | NUR ---
PATIENT SITTING BY BEDSIDE AWAKE AND ALERT. RESP EVEN AND UNLABORED ON ROOM AIR. NO NOTED ACUTE S/S DISTRESS. MORNING ROUTINE MEDICATIONS GIVEN. PATIENT TOLERATED WELL. RFA 22G INFUSING NS 100ML/HR. ABLE TO MAKE NEEDS KNOWN AND FOLLOW COMMANDS. PLAN OF CARE DISCUSSED, PATIENT VERBALIZED UNDERSTANDING. CALL LIGHT WITHIN REACH. WILL CONTINUE TO MONITOR.
[2020-10-04 08:48] LABS: ANION GAP 8.9 (8-16); CARBON DIOXIDE 26.7 mmol/L (21-32); CREATININE 0.5 mg/dL (0.6-1.3); POTASSIUM 3.6 mmol/L (3.5-5.1)
[2020-10-04 08:57] LABS: BASOPHILS % (AUTO) 0.1 % (0.0-2.0); EOSINOPHILS % (AUTO) 0.1 % (0.0-4.0); HEMATOCRIT 21.2 % (36-48); LYMPHOCYTES # (AUTO) 1.5 K/uL (2.5-16.5); LYMPHOCYTES % (AUTO) 4.1 % (20.5-51.1); MAGNESIUM 1.9 mg/dL (1.8-2.4); MEAN CORPUSCULAR HEMOGLOBIN 23 pg (27-31); MEAN CORPUSCULAR HGB CONC 31 g/dL (33-37); MEAN CORPUSCULAR VOLUME 72.9 fL (80-94); MONOCYTES # (AUTO) 1.9 K/uL (0.8-1.0); MONOCYTES % (AUTO) 5.3 % (1.7-9.3); NEUTROPHILS # (AUTO) 33.2 K/uL (1.8-7.7); NEUTROPHILS % (AUTO) 90.4 % (42.2-75.2); PHOSPHORUS 3.5 mg/dL (2.5-4.9); PLATELET COUNT (AUTO) 411 K/uL (140-450); RED BLOOD CELL COUNT(AUTO) 2.91 MIL/uL (4.20-5.40); RED CELL DISTRIBUTION WIDTH 18.1 % (11.6-13.7)
[2020-10-04 09:06] LABS: HEMOGLOBIN 6.5 g/dL (12.0-16.0); WHITE BLOOD COUNT (AUTO) 36.8 K/uL (4.8-10.8)
--- NOTE | 2020-10-04 10:40 | NUR ---
DR REGAN IN HOUSE,. GAVE ORDER FOR PACKED CELLS 1 UNIT AND TYPE AND SCREEN. ORDERS CARRIED OUT. PATIENT MADE AWARE.
[2020-10-04] MEDS: ONDANSETRON 4 MG/2 ML VIAL IM/IVP PRN (10:41)
[2020-10-04] MEDS: LEVOFLOXACIN 500 MG/D5W PREMIX 100 ML IV SCH (10:42)
[2020-10-04] MEDS: INSULIN LISPRO SLIDING SCALE 100 UNITS/ML VIAL SUBQ PRN (13:25)
--- NOTE | 2020-10-04 13:37 | NUR ---
PATIENT SITTING BY BEDSIDE EATING LUNCH. DR REGAN AT BEDSIDE. BLOOD TRANSFUSION CONSENT SIGNED. RESP EVEN AND UNLABORED. NO NOTED ACUTE S/S DISTRESS. CALL LIGHT WITHIN REACH. WILL CONTINUE TO MONITOR.
--- NOTE | 2020-10-04 14:17 | NUR ---
DC PLANN[age] YRS OLD FEMALE PATIENT WAS ADMITTED FROM HOME WITH A DX OF LEUKOCYTOSIS, HYPOGLYCEMIA AND UTI. COVID TEST NEGATIVE. WBC 34.8 ON ADMISSION. STARTED WITH VANCOMYCIN IV . BLOOD AND URINE CULTURE NO GROWTH SEEN BY PULMO ,ID, GI, AND HEMATOLOGY.DC PLAN TO GO HOME WHEN STABLE CM TO FOLLOW Addendum: 10/07/20 at 1725 by Tiana Talbot RN DC PLANNING: SEEN BY ALL THE CONSULTANTS , WBC 30.8 , REPEAT URINE CULTURE AND EGD AND COLONOSCOPY TODAY BY DR CHAVEZ. DC PLAN AWAITING FOR THE RECOMMENDATIONS FOR THE CONSULTANTS. CM TO FOLLOW.
--- NOTE | 2020-10-04 15:26 | NUR ---
PACKED CELL UNIT IS TRANSFUSING. ASE EXPLAINED TO PATIENT, PATIENT VERBALIZED UNDERSTANDING. WILL MONITOR CLOSELY FOR ANY ASE. INITIAL VITALS WNL. NO NOTED DISTRESS. PATIENT ENCOURAGED TO USE CALL LIGHT FOR HELP, PATIENT VERBALIZED UNDERSTANDING. CALL LIGHT WITHIN REACH. WILL CONTINUE TO MONITOR.
[2020-10-04 16:00] VITALS: BP 98/60
--- NOTE | 2020-10-04 18:12 | NUR ---
BLOOD TRANSFUSION COMPLETE. PATIENT IN BED AWAKE AND ALERT. NO NOTED ACUTE S/S DISTRESS. RESP EVEN AND UNLABORED ON ROOM AIR, O2SAT 95%. DENIED OF PAIN AT THIS TIME. VITALS WNL. CALL LIGHT WITHIN REACH. WILL CONTINUE TO MONITOR
--- NOTE | 2020-10-04 19:25 | NUR ---
ENDORSED PATIENT TO NIGHT NURSE. PATIENT IN STABLE CONDITION.
[2020-10-04 20:00] VITALS: BP 122/60
--- NOTE | 2020-10-04 20:18 | NUR ---
VS STABLE. SCHEDULED MEDS GIVEN ORDERED. PT BLOOD SUGAR TAKEN, NO INSULIN COVERAGE NEEDED. PT DENIES ANY PAIN OR DISCOMFORT AT THIS TIME. NO REQUESTS MADE. SAFETY MEASURES IN PLACE. CALL LIGHT WITHIN REACH. WILL CONTINUE TO MONITOR.
--- NOTE | 2020-10-04 22:06 | NUR ---
PT ASLEEP. NO S/SX OF PAIN OR DISCOMFORT NOTED. PT KEPT COMFORTABLE. SAFETY MEASURES IN PLACE. CALL LIGHT WITHIN REACH. WILL CONTINUE TO MONITOR.
--- NOTE | 2020-10-05 00:16 | NUR ---
PT IN BED RESTING. PT DENIES ANY PAIN OR DISCOMFORT. NO REQUESTS MADE. SAFETY MEASURES IN PLACE. CALL LIGHT WITHIN REACH. WILL CONTINUE TO MONITOR.
--- NOTE | 2020-10-05 01:56 | NUR ---
ASSISTED PATIENT IN USING BEDPAN. PT NOT IN DISTRESS. DENIES ANY PAIN OR DISCOMFORT AT THIS TIME. NO REQUESTS MADE. SAFETY MEASURES IN PLACE. CALL LIGHT WITHIN REACH. WILL CONTINUE TO MONITOR.
--- NOTE | 2020-10-05 02:00 | NUR ---
ENDORSED TO ЕЛЕНА MCGINNIS FOR CONTINUITY OF CARE
--- NOTE | 2020-10-05 02:00 | NUR ---
RECEIVED PATIENT FROM RAS HOPSON FOR CONTINUITY OF CARE.
--- NOTE | 2020-10-05 04:00 | NUR ---
PATIENT RESTING COMFORTABLY IN BED. NO S/S ACUTE DISTRESS. CALL LIGHT WITHIN REACH.
[2020-10-05] MEDS: CLINDAMYCIN 900 MG in DEXTROSE 5% 100 ML IV SCH ×3 (05:04→22:17)
[2020-10-05] MEDS: NACL 0.9% 1,000 ML IV SCH (05:58)
--- NOTE | 2020-10-05 06:00 | NUR ---
DUE MEDS GIVEN. BLOOD GLUCOSE 125 MG/DL. NO S/S ACUTE DISTRESS. CALL LIGHT WITHIN REACH.
[2020-10-05] MEDS: BLOOD GLUCOSE MONITORING 1 DEV DEV FS SCH ×4 (06:38→21:00)
--- NOTE | 2020-10-05 07:15 | NUR ---
ENDORSED TO AM SHIFT NURSE FOR CONTINUITY OF CARE.
[2020-10-05 08:00] VITALS: BP 120/68
[2020-10-05 08:49] LABS: HEMATOCRIT 25.9 % (36-48); MEAN CORPUSCULAR HEMOGLOBIN 24 pg (27-31); MEAN CORPUSCULAR HGB CONC 32 g/dL (33-37); MEAN CORPUSCULAR VOLUME 75.6 fL (80-94); PLATELET COUNT (AUTO) 494 K/uL (140-450); RED BLOOD CELL COUNT(AUTO) 3.43 MIL/uL (4.20-5.40); RED CELL DISTRIBUTION WIDTH 20.7 % (11.6-13.7); WHITE BLOOD COUNT (AUTO) 23.1 K/uL (4.8-10.8)
[2020-10-05 09:01] LABS: HEMOGLOBIN 8.3 g/dL (12.0-16.0)
[2020-10-05 09:13] LABS: ANION GAP 10.7 (8-16); CARBON DIOXIDE 26.7 mmol/L (21-32); CREATININE 0.5 mg/dL (0.6-1.3); POTASSIUM 3.4 mmol/L (3.5-5.1)
[2020-10-05] MEDS: ZINC SULF 220 MG CAP PO SCH (09:29)
[2020-10-05] MEDS: ASCORBIC ACID 500 MG TAB PO SCH (09:30)
[2020-10-05] MEDS: HYDROcodone/APAP 7.5/325 MG 1 TAB PO PRN ×2 (09:40→22:28)
[2020-10-05 09:46] LABS: EOSINOPHILS % (MANUAL) 2 % (0-4); LYMPHOCYTES % (MANUAL) 3 % (20-46); MONOCYTES % (MANUAL) 7 % (5-12)
[2020-10-05] MEDS: LEVOFLOXACIN 500 MG/D5W PREMIX 100 ML IV SCH (11:28)
[2020-10-05] MEDS: INSULIN LISPRO SLIDING SCALE 100 UNITS/ML VIAL SUBQ PRN (11:29)
[2020-10-05] MEDS ORDERED: PRED5TAB7 PO (13:25)
[2020-10-05] MEDS ORDERED: FUROSEMIDE 20 MG TAB PO SCH (13:30)
[2020-10-05] MEDS ORDERED: POTASSIUM CHLORIDE 20% 40 MEQ/15 ML UDC GT SCH (13:30)
[2020-10-05 16:00] VITALS: BP 124/66
[2020-10-05] MEDS ORDERED: HYDR200T5 PO (16:48)
[2020-10-05] MEDS ORDERED: GABA100C PO (16:48)
[2020-10-05 17:04] LABS: MAGNESIUM 2.4 mg/dL (1.8-2.4); PHOSPHORUS 3.5 mg/dL (2.5-4.9)
--- NOTE | 2020-10-05 17:41 | NUR ---
10/05/20 RD FOLLOW UP COMPLETED. PLEASE REFER TO NUTRITION ASSESSMENT UNDER CARE ACTIVITY FOR ESTIMATED NUTRITIONAL NEEDS. 1. CONTINUE 60GM CCHO DIET; SUFFICIENT TO MEET ESTIMATED NEEDS. 2. ENCOURAGE PO INTAKE; ASSIST NEEDED. 3. F/U 3-5 DAYS; MODERATE RISK MARIA DOLORES AVILA, RD
--- NOTE | 2020-10-05 19:20 | NUR ---
RECEIVED BEDSIDE REPORT FROM DAY SHIFT NURSE FOR CONTINUITY OF CARE. PT IS AWAKE AND ALERT, LITHUANIAN SPEAKING. ON RA WITH BREATHING UNLABORED. MED SURG PT. AMBULATORY WITH ASSISTANCE. BOWEL SOUNDS PRESENT. WAITING FOR STOOL SAMPLE TO COLLECT. NO BM ON DAY SHIFT PER DAY SHIFT NURSE. SKIN IS WARM, DRY, AND INTACT. IV IS IN THE RIGHT FOREARM 22 GAUGE RUNNING NS AT 100 ML PER HOUR PER ORDER. PLAN OF CARE DISCUSSED. PT IS STABLE.
[2020-10-05 20:00] VITALS: BP 118/65
--- NOTE | 2020-10-05 21:30 | NUR ---
PT IS UP TO THE RESTROOM. PT VOIDED IN THE TOILET. GAIT IS STEADY. PT IS BACK TO BED. ON RA WITH BREATHING UNLABORED. NO DISTRESS NOTED.
[2020-10-05] MEDS: POTASSIUM CHLORIDE 10 MEQ TABER PO PRN (22:16)
--- NOTE | 2020-10-05 22:16 | NUR ---
PT WAS GIVEN KDUR 40 MEQ PO FOR POTASSIUM LEVEL OF 3.4. WILL CONTINUE TO MONITOR LABS.
--- NOTE | 2020-10-05 22:28 | NUR ---
PT WAS GIVEN NORCO FOR PAIN. PT HAD PAIN IN THE FEET AND LEGS AT A SCALE OF 6/10. WILL CONTINUE TO MONITOR PAIN.
--- NOTE | 2020-10-05 23:30 | NUR ---
ROUNDED ON PT. SHE IS SLEEPING IN SEMI FOWLERS POSITION. PT IS STABLE. BREATHING IS UNLABORED. PT DOES NOT APPEAR TO BE IN PAIN. WILL CONTINUE TO MONITOR.
--- NOTE | 2020-10-06 01:30 | NUR ---
PT IS AWAKE AND ALERT, A&OX4. NO RESPIRATORY DISTRESS NOTED AND NO PAIN. PT IS STABLE. IV IS IN PLACE AND NO SIGNS OF INFECTION. BED IS IN THE LOWEST POSITION AND CALL LIGHT IS WITHIN REACH. WILL CONTINUE TO MONITOR.
--- NOTE | 2020-10-06 03:30 | NUR ---
PT IS SLEEPING IN BED. IV IS SALINE LOCKED. NO PAIN NOTED. PT AMBULATES TO THE RESTROOM INDEPENDENTLY, STILL NO BM FOR STOOL COLLECTION. WILL CONTINUE TO MONITOR.
[2020-10-06 04:00] VITALS: BP 105/69
--- NOTE | 2020-10-06 05:30 | NUR ---
PT STILL HAS NOT HAD A BM TO BE COLLECTED. PT IS SITTING UPRIGHT IN BED WITH NO DISTRESS. PT DENIES PAIN AT THIS TIME. PT IS STABLE.
[2020-10-06] MEDS: LANSOPRAZOLE 30 MG CAPDR PO SCH (05:31)
[2020-10-06] MEDS: BLOOD GLUCOSE MONITORING 1 DEV DEV FS SCH ×4 (06:25→20:35)
--- NOTE | 2020-10-06 07:15 | NUR ---
ENDORSED PT TO DAY SHIFT NURSE FOR CONTINUITY OF CARE. PT IS STABLE AT THIS TIME. PLAN OF CARE DISCUSSED.
--- NOTE | 2020-10-06 07:18 | NUR ---
received report from night nurse patient is aaox4 serbian speaking, on room air, ambulatory, no bowel movement, on ccho 60 grams, potassium 40meq given yesterday,S/P 1 UNIT PRBC,COVID 19 RAPID AND PCR NEGATIVE, SKIN INTACT, IV INTACT AND PATENT ON RIGHT FOREARM, NIGHT NURSE GAVE NORCO AT 2230 FOR LEGS AND KNEE PAIN. SAFETY MEASURES IN PLACE AND CALL LIGHT WITHIN REACH. WILL CONTINUE TO MONITOR.
[2020-10-06] MEDS: ZINC SULF 220 MG CAP PO SCH (08:40)
[2020-10-06] MEDS: ASCORBIC ACID 500 MG TAB PO SCH (08:40)
--- NOTE | 2020-10-06 08:41 | NUR ---
MEDICATION DUE GIVEN CHECK VITAL SIGNS PRIOR TO MEDICATION BP 139/76 RI 114 NO DISTRESS NOTED PT IS STABLE. SAFETY MEASURES IN PLACE AND CALL LIGHT WITHIN REACH. WILL CONTINUE TO MONITOR.
[2020-10-06] MEDS ORDERED: FUROSEMIDE 20 MG TAB PO SCH (09:00)
[2020-10-06 10:08] LABS: CARBON DIOXIDE 26.8 mmol/L (21-32); CREATININE 0.5 mg/dL (0.6-1.3); POTASSIUM 3.8 mmol/L (3.5-5.1)
[2020-10-06 10:12] LABS: HEMATOCRIT 27.9 % (36-48); HEMOGLOBIN 8.8 g/dL (12.0-16.0); MEAN CORPUSCULAR HEMOGLOBIN 24 pg (27-31); MEAN CORPUSCULAR HGB CONC 31 g/dL (33-37); MEAN CORPUSCULAR VOLUME 76.2 fL (80-94); PLATELET COUNT (AUTO) 645 K/uL (140-450); RED BLOOD CELL COUNT(AUTO) 3.66 MIL/uL (4.20-5.40); RED CELL DISTRIBUTION WIDTH 21.6 % (11.6-13.7)
[2020-10-06 10:42] LABS: MAGNESIUM 2.4 mg/dL (1.8-2.4); PHOSPHORUS 3.4 mg/dL (2.5-4.9)
--- NOTE | 2020-10-06 11:30 | NUR ---
BLOOD SUGAR AT 134 MG/DL NO INSULIN COVERAGE.
[2020-10-06 12:18] LABS: FOLIC ACID 6.9 ng/mL (>3.0)
[2020-10-06 12:21] LABS: WHITE BLOOD COUNT (AUTO) 27.1 K/uL (4.8-10.8)
[2020-10-06 12:22] LABS: EOSINOPHILS % (MANUAL) 2 % (0-4); LYMPHOCYTES % (MANUAL) 14 % (20-46); MONOCYTES % (MANUAL) 6 % (5-12)
[2020-10-06] MEDS ORDERED: LACTULOSE 20 GM/30 ML UDC PO SCH (13:00)
--- NOTE | 2020-10-06 13:00 | NUR ---
MEDICATION DUE GIVEN PT IS STABLE AND TOLERATED WELL
[2020-10-06] MEDS: SENNA 8.6 MG TAB PO SCH ×2 (13:21→17:08)
--- NOTE | 2020-10-06 14:00 | NUR ---
ABLE TO COLLECT STOOL AND SEND TO LAB
[2020-10-06] MEDS: HYDROcodone/APAP 7.5/325 MG 1 TAB PO PRN (15:00)
--- NOTE | 2020-10-06 15:00 | NUR ---
PATIENT IS NPO EXCEPT MEDS FOR BREAKFAST PT IS FOR EGD, COLONOSCOPY
[2020-10-06 16:00] VITALS: BP 104/54
--- NOTE | 2020-10-06 16:30 | NUR ---
BLOOD SUGAR 131 MG/DL NO INSULIN COVERAGE
[2020-10-06] MEDS ORDERED: VANCOMYCIN PER PHARMACY MC PRN ×2 (16:35→16:40)
--- NOTE | 2020-10-06 17:00 | NUR ---
MEDICATION DUE GIVEN INFUSING WELL
[2020-10-06] MEDS: VANCOMYCIN 750 MG in DEXTROSE 5% 250 ML IV SCH (18:03)
[2020-10-06] MEDS ORDERED: MAGNESIUM CITRATE 300 ML BTL PO SCH (19:00)
--- NOTE | 2020-10-06 19:00 | NUR ---
MEDICATION DUE GIVEN PT TOLERATED WELL
--- NOTE | 2020-10-06 19:40 | NUR ---
RECEIVED BEDSIDE REPORT FROM DAY SHIFT NURSE FOR CONTINUITY OF CARE. PT IS AWAKE AND ALERT. A&OX4. ON RA WITH BREATHING UNLABORED. PT IS AMBULATORY TO THE RESTROOM. SKIN IS WARM, DRY, AND INTACT. IV IS IN THE RIGHT FOREARM PATENT AND INFUSING. PLAN OF CARE DISCUSSED. PT IS STABLE.
--- NOTE | 2020-10-06 19:53 | NUR ---
ENDORSED TO NIGHT NURSE FOR CONTINUITY OF CARE
[2020-10-06 20:00] VITALS: BP 136/83
--- NOTE | 2020-10-06 21:00 | NUR ---
HELD HEPARIN FOR EGD/COLONOSCOPY TOMORROW AM. EGD TO EXPLORE COLON FOR POSSIBLE CAUSE OF ANEMIA. WILL HOLD DUE TO RISK OF BLEEDING.
--- NOTE | 2020-10-06 21:30 | NUR ---
PT IS UP TO THE RESTROOM. GAIT IS STEADY. NO PAIN NOTED. PT IS BACK TO BED. CALL LIGHT IS WITHIN REACH.
--- NOTE | 2020-10-06 23:30 | NUR ---
PT IS SLEEPING. CHEST RISE AND FALL IS SYMMETRICAL. BREATHING IS UNLABORED. PT APPEARS TO BE CALM AND STABLE. IV FLUIDS ARE INFUSING TKO.
--- NOTE | 2020-10-07 01:30 | NUR ---
ROUNDED ON PT. SHE IS LAYING AWAKE IN SEMI FOWLERS POSITION. PT IS RESTING COMFORTABLY. BLANKET WAS GIVEN FOR COMFORT. NO DISTRESS NOTED.
--- NOTE | 2020-10-07 03:30 | NUR ---
MADE ROUNDS ON PT. SHE IS ASLEEP IN SEMI FOWLERS POSITION. PT WAS EASILY AWOKEN TO NOISE. PT ASKED FOR ASSISTANCE TO THE RESTROOM. STATED SHE HAD SOME PAIN IN HER LEGS BUT DID NOT NEED ANY PAIN MEDICATION. PT IS BACK TO BED AND STABLE AT THIS TIME.
[2020-10-07 04:00] VITALS: BP 115/62
--- NOTE | 2020-10-07 05:30 | NUR ---
ATTEMPTED TO PLACE NEW IV IN PT PER ORDER. WAS UNSUCCESSFUL ON THREE ATTEMPTS. OTHER IV IS FLUSHING AND PATENT. NO SIGNS OR SYMPTOMS OF INFILTRATION/INFECTION.
[2020-10-07] MEDS: LANSOPRAZOLE 30 MG CAPDR PO SCH (05:38)
[2020-10-07] MEDS: VANCOMYCIN 750 MG in DEXTROSE 5% 250 ML IV SCH ×2 (05:39→17:49)
[2020-10-07] MEDS: BLOOD GLUCOSE MONITORING 1 DEV DEV FS SCH ×4 (05:48→23:03)
--- NOTE | 2020-10-07 07:20 | NUR ---
ENDORSED PT TO DAY SHIFT NURSE FOR CONTINUITY OF CARE. PT IS STABLE AT THIS TIME. PLAN OF CARE DISCUSSED.
--- NOTE | 2020-10-07 07:25 | NUR ---
RECEIVED REPORT FROM NIGHTSHIFT NURSE. PT RESTING IN BED. ABLE TO MAKE NEEDS KNOWN. RESPIRATIONS EVEN AND UNLABORED WITH NO SOB OR RESPIRATORY DISTRESS. SKIN WARM AND DRY TO TOUCH. IV SITE IN RFA 22G IS CLEAN, DRY, AND INTACT. SAFETY MEASURES IN PLACE. WILL CONTINUE TO MONITOR
[2020-10-07 08:00] VITALS: BP 116/62
[2020-10-07 08:47] LABS: ANION GAP 8.3 (8-16); CARBON DIOXIDE 27.7 mmol/L (21-32); CREATININE 0.5 mg/dL (0.6-1.3)
[2020-10-07 08:48] LABS: MAGNESIUM 2.8 mg/dL (1.8-2.4); PHOSPHORUS 3.9 mg/dL (2.5-4.9)
[2020-10-07 08:52] LABS: HEMATOCRIT 25.4 % (36-48); HEMOGLOBIN 8.1 g/dL (12.0-16.0); MEAN CORPUSCULAR HEMOGLOBIN 24 pg (27-31); MEAN CORPUSCULAR HGB CONC 32 g/dL (33-37); MEAN CORPUSCULAR VOLUME 75.8 fL (80-94); PLATELET COUNT (AUTO) 630 K/uL (140-450); RED BLOOD CELL COUNT(AUTO) 3.35 MIL/uL (4.20-5.40); RED CELL DISTRIBUTION WIDTH 20.4 % (11.6-13.7)
[2020-10-07] MEDS ORDERED: LACTULOSE 20 GM/30 ML UDC PO SCH (09:00)
[2020-10-07] MEDS: ZINC SULF 220 MG CAP PO SCH (09:08)
[2020-10-07] MEDS: SENNA 8.6 MG TAB PO SCH (09:08)
[2020-10-07] MEDS: POTASSIUM CHLORIDE 10 MEQ TABER PO PRN (09:08)
[2020-10-07 09:10] LABS: WHITE BLOOD COUNT (AUTO) 30.9 K/uL (4.8-10.8)
[2020-10-07] MEDS: ASCORBIC ACID 500 MG TAB PO SCH (09:10)
--- NOTE | 2020-10-07 09:21 | NUR ---
ADMINISTERED SCHED MED PRESCRIBED PER MD ORDER. PT TOLERATED WELL. MEDICATION EDUCATION PERFORMED. PT VERBALIZED UNDERSTANDING. SAFETY MEASURES IN PLACE. WILL CONTINUE TO MONITOR
--- NOTE | 2020-10-07 11:00 | NUR ---
PT TAKEN BACK TO SURGERY. REPORT GIVEN TO SURGERY STAFF. SAFETY MEASURES IN PLACE. WILL CONTINUE TO MONITOR
[2020-10-07] MEDS ORDERED: LIDOCAINE 2% 100 MG/5 ML UJET TP ONE ×2 (11:08→14:35)
[2020-10-07] MEDS ORDERED: MIDAZOLAM 2 MG/2 ML VIAL ONE (11:08)
[2020-10-07] MEDS ORDERED: diphenhydrAMINE 50 MG/ML VIAL ONE (11:08)
[2020-10-07] MEDS ORDERED: fentaNYL citrate 0.05 MG/ML VIAL ONE (11:08)
--- NOTE | 2020-10-07 12:35 | NUR ---
PT RETURNED BACK FROM EGD AND COLONOSCOPY. REPORT GIVEN AT BEDSIDE. SAFETY MEASURES IN PLACE. WILL CONTINUE TO MONITOR
--- NOTE | 2020-10-07 14:30 | NUR ---
PT WENT TO CT FOR SCAN. AWAITING ARRIVAL. WILL CONTINUE TO MONITOR
[2020-10-07] MEDS ORDERED: MIDAZOLAM 2 MG/2 ML VIAL IVP ONE (14:35)
[2020-10-07] MEDS ORDERED: FENTANYL C 0.075 MG/HR PATCH TD SCH (14:35)
[2020-10-07 14:43] LABS: EOSINOPHILS % (MANUAL) 1 % (0-4); LYMPHOCYTES % (MANUAL) 6 % (20-46); MONOCYTES % (MANUAL) 6 % (5-12); MYELOCYTES % 2 % (0-0)
[2020-10-07] MEDS ORDERED: fentaNYL citrate 0.05 MG/ML VIAL IVP ONE (15:10)
--- NOTE | 2020-10-07 15:15 | NUR ---
PT RETURNED BACK FROM CT. NO SIGNS OF DISTRESS NOTED. SAFETY MEASURES IN PLACE. WILL CONTINUE TO MONITOR
[2020-10-07 16:00] VITALS: BP 99/53
--- NOTE | 2020-10-07 16:30 | NUR ---
PT BLOOD SUGAR IS 84. NO INSULIN NEEDED. SAFETY MEASURES IN PLACE. WILL CONTINUE TO MONITOR
--- NOTE | 2020-10-07 17:56 | NUR ---
ADMINISTERED SCHED MED PRESCRIBED PER MD ORDER. PT TOLERATED WELL. MEDICATION EDUCATION PERFORMED. PT VERBALIZED UNDERSTANDING. SAFETY MEASURES IN PLACE. WILL CONTINUE TO MONITOR
--- NOTE | 2020-10-07 18:20 | NUR ---
PT RESTING IN BED. ABLE TO MAKE NEEDS KNOWN. RESPIRATIONS EVEN AND UNLABORED WITH NO SOB OR RESPIRATORY DISTRESS. SKIN WARM AND DRY TO TOUCH. SAFETY MEASURES IN PLACE. WILL CONTINUE TO MONITOR
--- NOTE | 2020-10-07 19:10 | NUR ---
ENDORSED TO NIGHTSHIFT NURSE FOR CONTINUITY OF CARE. PT IS STABLE
[2020-10-07 20:00] VITALS: BP 111/59
--- NOTE | 2020-10-07 23:35 | NUR ---
DR CREWS ORDERED AN INDIUM SCAN FOR 10/08/2020. NOTIFIED BY ROCKY ([phone]) THAT PT CANNOT HAVE INDIUM SCAN AT THIS HOSPITAL D/T NO EQUIPMENT FOR THIS TYPE OF SCAN. ROCKY SUGGESTED [facility] FOR INDIUM SCAN SINCE [facility] DOES HAVE THE CORRECT EQUIPMENT. DR CREWS NOTIFIED AND AGREED FOR TRANSFER IN ORDER TO PERFORM THE SCAN.
--- NOTE | 2020-10-08 07:44 | NUR ---
SPOKE TO CHEKO, BALANCE RECESSER, ABOUT PATIENT'S NM INDIUM SCAN ORDER. CHEKO AWARE OF DR. CREWS'S ORDER PK. PER ROCKY, SSN/SSBN ASSISTANT NAVIGATOR, [facility] DOES NOT HAVE EQUIPMENT FOR INDIUM SCAN, [facility] DOES. CHEKO STATED HE WILL CALL [facility] TO SEE IF TRANSFER TO [facility] IS POSSIBLE THIS WEEKEND. RAS DELGADO VERBALIZED UNDERSTANDING.
[2020-10-08] MEDS: BLOOD GLUCOSE MONITORING 1 DEV DEV FS SCH ×4 (07:57→21:54)
[2020-10-08 08:00] VITALS: BP 110/62
[2020-10-08] MEDS: LANSOPRAZOLE 30 MG CAPDR PO SCH (09:19)
[2020-10-08] MEDS: ZINC SULF 220 MG CAP PO SCH (09:19)
--- NOTE | 2020-10-08 09:20 | NUR ---
ORDERED MEDICATIONS GIVEN. 0600 VANCO NOT GIVEN BECAUSE VANCO TROUGH NOT OUT YET. FOLLOW UP WITH LAB, THEY SAID CHLORINATOR OPERATOR ON THE FLOOR. PATIENT IS URDU SPEAKING ONLY, CALLED HER SON, EXPLAINED PLAN OF CARE AND PENDING INDIUM SCAN, HE VERBALIZED UNDERSTANDING ABOUT PLAN OF CARE.
--- NOTE | 2020-10-08 09:36 | NUR ---
YAEL, MOTOR SCOOTER MECHANIC, AWARE OF INDIUM SCAN. CALLED AND SPOKE TO RIVAS, MUSIC SUPERVISOR TO MAKE HER AWARE OF THE SITUATION. PER ROCKY, MARKETING RESEARCH INTERN, [facility] DOES NOT HAVE CAPACITY TO DO INDIUM SCAN, [facility] DOES.
[2020-10-08 09:51] LABS: BASOPHILS # (AUTO) 0.1 K/uL (0.00-0.22); BASOPHILS % (AUTO) 0.5 % (0.0-2.0); EOSINOPHILS # (AUTO) 0.6 K/uL (0-0.4); EOSINOPHILS % (AUTO) 2.5 % (0.0-4.0); HEMATOCRIT 25.8 % (36-48); HEMOGLOBIN 8.1 g/dL (12.0-16.0); LYMPHOCYTES # (AUTO) 1.4 K/uL (2.5-16.5); LYMPHOCYTES % (AUTO) 6.2 % (20.5-51.1); MEAN CORPUSCULAR HEMOGLOBIN 24 pg (27-31); MEAN CORPUSCULAR HGB CONC 32 g/dL (33-37); MEAN CORPUSCULAR VOLUME 76.2 fL (80-94); MONOCYTES # (AUTO) 1.6 K/uL (0.8-1.0); MONOCYTES % (AUTO) 7.2 % (1.7-9.3); NEUTROPHILS # (AUTO) 18.8 K/uL (1.8-7.7); NEUTROPHILS % (AUTO) 83.6 % (42.2-75.2); PLATELET COUNT (AUTO) 575 K/uL (140-450); RED BLOOD CELL COUNT(AUTO) 3.39 MIL/uL (4.20-5.40); RED CELL DISTRIBUTION WIDTH 20.8 % (11.6-13.7); WHITE BLOOD COUNT (AUTO) 22.5 K/uL (4.8-10.8)
[2020-10-08 10:02] LABS: ANION GAP 10.9 (8-16); CREATININE 0.5 mg/dL (0.6-1.3)
[2020-10-08 10:15] LABS: POTASSIUM 2.9 mmol/L (3.5-5.1)
[2020-10-08 10:56] LABS: PHOSPHORUS 3.4 mg/dL (2.5-4.9)
[2020-10-08] MEDS: VANCOMYCIN 750 MG in DEXTROSE 5% 250 ML IV SCH ×3 (11:00→20:00)
--- NOTE | 2020-10-08 11:02 | NUR ---
VANCO TROUGH CAME OUT, 4.5. CALLED AND INFORMED PHARMACIST. PHARMACIST SAID TO HOLD 0600 VANCO 750 MG DOSE.
--- NOTE | 2020-10-08 12:17 | NUR ---
LATE ENTRY: DISCHARGE PLANNING: I WAS INFORMED BY CHARGE NURSE THAT THE PATIENT HAS AN ORDER FOR INDIUM SCAN. CONTACTED RADIOLOGY ABLE TO SPEAK TO SWATHI. PER SWATHI SHE IS NOT FAMILIAR WITH THE PROCEDURE HOWEVER SHE WILL FIND OUT AND WILL CALL ME BACK. CONTACTED [facility] [phone], ABLE TO SPEAK TO ARELY. PER ARELY SHE IS NOT FAMILIAR WITH THE PROCEDURE EITHER. SHE STATED IT MIGHT BE LAB. PER TIFFANIE AT LAB, SHE IS NOT FAMILIAR WITH THE PROCEDURE EITHER. RECEIVED A CALL BACK FROM SWATHI OF [facility], STATING THAT THE PROCEDURE WILL TAKE 2-3 JUST FOR THE SCAN AND WE DO NOT HAVE THE CAPACITY TO DO IT HERE AT [place]. DR. ASTORGA MADE AWARE THAT WE ARE NOT CAPABLE OF DOING THE PROCEDURE HERE. HE STATED HE WILL FOLLOW UP WITH DR. CREWS. PRIMARY RN DANNY MADE AWARE. CONTACTED THE [facility] AGAIN, SPOKE TO BEATRIZ. PER BEATRIZ, THEY HAVE AN DIGITAL MARKETING PROJECT MANAGER TECH AND SHE WILL CONTACT HIM TO ASK FOR THE PROCESS AND WILL CALL ME BACK. PROVIDED HER OF MY CONTACT INFO. ENDORSED TO SIMPLEX OPERATOR CHEKO.
--- NOTE | 2020-10-08 13:54 | NUR ---
10/08/20 RD INITIAL ASSESSMENT COMPLETED PLEASE REFER TO NUTRITION ASSESSMENT UNDER CARE ACTIVITY FOR ESTIMATED NUTRITIONAL NEEDS. 1. CONTINUE CCHO 60 GM DIET 2. ENCOURAGE PO INTAKE 3. RD TO FOLLOW-UP 3-5 DAYS, MODERATE RISK KARUNA BRAVO RD
[2020-10-08] MEDS: POTASSIUM CHLORIDE 10 MEQ TABER PO PRN (15:37)
[2020-10-08 16:00] VITALS: BP 119/92
[2020-10-08] MEDS ORDERED: SODIUM FERRIC GLUCONATE 125 MG in NACL 0.9% 100 ML IV SCH (17:40)
--- NOTE | 2020-10-08 19:30 | NUR ---
REPORT GIVEN TO SAND SHOVELER RN. PATIENT SITTING UP IN BED WATCHING TV.
[2020-10-08 20:00] VITALS: BP 108/64
--- NOTE | 2020-10-08 20:02 | NUR ---
RECEIVED REPORT FROM DANNY/RN, PT A&O X4, VERBAL, AMBULATORY, W/ SOB ON OXYMIZER @10L, NO DISTRESS, IVP INTACT.
[2020-10-08] MEDS: INSULIN LISPRO SLIDING SCALE 100 UNITS/ML VIAL SUBQ PRN (21:53)
[2020-10-09] MEDS: VANCOMYCIN 750 MG in DEXTROSE 5% 250 ML IV SCH ×3 (04:42→20:00)
[2020-10-09] MEDS: LANSOPRAZOLE 30 MG CAPDR PO SCH (06:02)
[2020-10-09] MEDS: HYDROcodone/APAP 7.5/325 MG 1 TAB PO PRN (06:03)
--- NOTE | 2020-10-09 06:38 | NUR ---
PT AWAKE, A&O X4, VERBAL, LATVIAN SPEAKING, NO SOB/ DISTRESS, WITH C/O REMI KNEE PAIN, PAIN MEDS GIVEN, IVP INTACT W/O INFILTRATION NOTED. VSS.
[2020-10-09] MEDS: BLOOD GLUCOSE MONITORING 1 DEV DEV FS SCH ×4 (06:43→21:18)
--- NOTE | 2020-10-09 07:20 | NUR ---
REPORT GIVEN TO DANNY/RN
[2020-10-09 08:00] VITALS: BP 115/68
[2020-10-09] MEDS: FERROUS SULFATE 325 MG TABEC PO SCH ×2 (08:55→16:50)
[2020-10-09] MEDS: ZINC SULF 220 MG CAP PO SCH (08:55)
[2020-10-09] MEDS ORDERED: SODIUM FERRIC GLUCONATE 125 MG in NACL 0.9% 100 ML IV SCH (09:00)
[2020-10-09 09:02] LABS: CARBON DIOXIDE 27.9 mmol/L (21-32); CREATININE 0.5 mg/dL (0.6-1.3)
[2020-10-09 09:07] LABS: BASOPHILS # (AUTO) 0.1 K/uL (0.00-0.22); BASOPHILS % (AUTO) 0.6 % (0.0-2.0); EOSINOPHILS # (AUTO) 0.6 K/uL (0-0.4); EOSINOPHILS % (AUTO) 2.9 % (0.0-4.0); HEMATOCRIT 26.1 % (36-48); HEMOGLOBIN 8.3 g/dL (12.0-16.0); LYMPHOCYTES # (AUTO) 0.9 K/uL (2.5-16.5); LYMPHOCYTES % (AUTO) 4.2 % (20.5-51.1); MEAN CORPUSCULAR HEMOGLOBIN 24 pg (27-31); MEAN CORPUSCULAR HGB CONC 32 g/dL (33-37); MEAN CORPUSCULAR VOLUME 74.6 fL (80-94); MONOCYTES # (AUTO) 1.4 K/uL (0.8-1.0); MONOCYTES % (AUTO) 6.9 % (1.7-9.3); NEUTROPHILS # (AUTO) 17.9 K/uL (1.8-7.7); NEUTROPHILS % (AUTO) 85.4 % (42.2-75.2); PLATELET COUNT (AUTO) 551 K/uL (140-450); RED CELL DISTRIBUTION WIDTH 20.3 % (11.6-13.7)
[2020-10-09 09:54] LABS: POTASSIUM 2.9 mmol/L (3.5-5.1)
--- NOTE | 2020-10-09 10:30 | NUR ---
BREAST US DONE. WILL WAIT FOR RESULTS.
[2020-10-09] MEDS: KCL 20 MEQ/WATER INJ PREMIX 200 ML IV SCH ×2 (15:00→18:15)
[2020-10-09 16:00] VITALS: BP 120/76
--- NOTE | 2020-10-09 19:25 | NUR ---
REPORT GIVEN TO FUNERAL DIRECTOR/EMBALMER NURSE AT BEDSIDE FOR CONTINUITY OF CARE. PATIENT IN STABLE CONDITION.
--- NOTE | 2020-10-09 19:28 | NUR ---
RECEIVED PATIENT FROM AM SHIFT NURSE FOR CONTINUITY OF CARE. ABLE TO MAKE NEEDS KNOWN. RESPIRATIONS EVEN, UNLABORED. NO S/S RESPIRATORY DISTRESS. SKIN WARM, DRY. NON PITTING BLE EDEMA. IV SITE TO LEFT HAND 22G PATENT/INTACT, INFUSING FLUIDS WELL. NO C/O PAIN. NO S/S ACUTE DISTRESS. ABDOMEN SOFT, NONTENDER, NONDISTENDED. BOWEL SOUNDS ACTIVE X4 QUADRANTS. PATIENT IS CONTINENT OF B/B. PLAN OF CARE DISCUSSED. CALL LIGHT WITHIN REACH AT ALL TIMES.
[2020-10-09 20:00] VITALS: BP 90/44
[2020-10-09] MEDS: ACETAMINOPHEN 325 MG TAB PO PRN (20:30)
[2020-10-09] MEDS: INSULIN LISPRO SLIDING SCALE 100 UNITS/ML VIAL SUBQ PRN (21:18)
--- NOTE | 2020-10-09 21:30 | NUR ---
DUE MEDS GIVEN. PATIENT RESTING COMFORTABLY IN BED. REASSESSED PAIN LEVEL 0/10. NO S/S ACUTE DISTRESS. CALL LIGHT WITHIN REACH.
--- NOTE | 2020-10-09 23:45 | NUR ---
PATIENT AWAKE AND COMFORTABLY IN BED. PROVIDED BEDPAN. NO S/S ACUTE DISTRESS. CALL LIGHT WITHIN REACH. SAFETY PRECAUTIONS IN PLACE.
--- NOTE | 2020-10-10 01:00 | NUR ---
MADE ROUNDS. PATIENT RESTING COMFORTABLY IN BED. NO S/S ACUTE DISTRESS. CALL LIGHT WITHIN REACH IN REACH AT ALL TIMES.
--- NOTE | 2020-10-10 03:25 | NUR ---
PATIENT IS ASLEEP. NO S/S ACUTE DISTRESS. CALL LIGHT WITHIN REACH IN REACH AT ALL TIMES.
[2020-10-10 04:00] VITALS: BP 121/63
[2020-10-10] MEDS: VANCOMYCIN 750 MG in DEXTROSE 5% 250 ML IV SCH ×3 (04:43→21:00)
--- NOTE | 2020-10-10 05:00 | NUR ---
PATIENT RESTING COMFORTABLY IN BED. DUE MEDS GIVEN. NO S/S ACUTE DISTRESS. CALL LIGHT WITHIN REACH IN REACH AT ALL TIMES.
[2020-10-10] MEDS: LANSOPRAZOLE 30 MG CAPDR PO SCH (05:39)
[2020-10-10] MEDS: BLOOD GLUCOSE MONITORING 1 DEV DEV FS SCH ×4 (06:31→23:30)
--- NOTE | 2020-10-10 07:30 | NUR ---
REC'D REPORT FROM COMFORT FILLER NURSE, PT AVINASH RA. CALL LIGHT WITHIN REACH.
--- NOTE | 2020-10-10 07:33 | NUR ---
ENDORSED PATIENT TO AM SHIFT NURSE FOR CONTINUITY OF CARE.
[2020-10-10 07:51] LABS: HEMATOCRIT 27.2 % (36-48); HEMOGLOBIN 8.5 g/dL (12.0-16.0); MEAN CORPUSCULAR HEMOGLOBIN 24 pg (27-31); MEAN CORPUSCULAR HGB CONC 31 g/dL (33-37); MEAN CORPUSCULAR VOLUME 75.6 fL (80-94); PLATELET COUNT (AUTO) 549 K/uL (140-450); RED CELL DISTRIBUTION WIDTH 20.7 % (11.6-13.7)
[2020-10-10 08:00] VITALS: BP 124/70
[2020-10-10 08:14] LABS: ANION GAP 9.9 (8-16); CARBON DIOXIDE 26.6 mmol/L (21-32); CREATININE 0.6 mg/dL (0.6-1.3); POTASSIUM 3.5 mmol/L (3.5-5.1)
[2020-10-10 09:34] LABS: WHITE BLOOD COUNT (AUTO) 28.7 K/uL (4.8-10.8)
[2020-10-10 09:35] LABS: EOSINOPHILS % (MANUAL) 4 % (0-4); LYMPHOCYTES % (MANUAL) 5 % (20-46); MONOCYTES % (MANUAL) 5 % (5-12)
--- NOTE | 2020-10-10 10:30 | NUR ---
SENT MESSAGE TO DR. VELASQUEZ RE: PT'S WBC COUNT 28.7. NO CHANGE IN ORDER
[2020-10-10] MEDS: FERROUS SULFATE 325 MG TABEC PO SCH ×2 (10:49→17:00)
[2020-10-10] MEDS: ZINC SULF 220 MG CAP PO SCH (10:49)
--- NOTE | 2020-10-10 10:50 | NUR ---
ADMINISTERED MEDICATIONS PER MD ORDER, PT TOLERATED PROCEDURE WELL.
[2020-10-10 16:00] VITALS: BP 119/64
--- NOTE | 2020-10-10 19:45 | NUR ---
ENDORSED PT TO CONFIGURATION MANAGEMENT ADVISOR NURSE, PT STABLE. RA. CALL LIGHT WITHIN REACH.
[2020-10-10 20:00] VITALS: BP 118/69
[2020-10-10] MEDS: INSULIN LISPRO SLIDING SCALE 100 UNITS/ML VIAL SUBQ PRN (23:55)
--- NOTE | 2020-10-11 | NUR ---
MADE ROUNDS , NO S/SX OF ACUTE DISTRESS NOTED . O2 SAT WNL .
--- NOTE | 2020-10-11 02:00 | NUR ---
SLEEPING . CALL LIGHT WITHIN REACH .
[2020-10-11 04:00] VITALS: BP 130/73
--- NOTE | 2020-10-11 04:00 | NUR ---
MADE ROUNDS , NO COMPLAIN MADE .
[2020-10-11] MEDS: VANCOMYCIN 750 MG in DEXTROSE 5% 250 ML IV SCH ×2 (05:20→12:20)
[2020-10-11] MEDS: LANSOPRAZOLE 30 MG CAPDR PO SCH (06:38)
--- NOTE | 2020-10-11 07:33 | NUR ---
ENDORSED - PT - STABLE
--- NOTE | 2020-10-11 07:38 | NUR ---
RECEIVED REPORT FROM NIGHTSHIFT NURSE. PT RESTING IN BED. ABLE TO MAKE NEEDS KNOWN. RESPIRATIONS EVEN AND UNLABORED WITH NO SOB OR RESPIRATORY DISTRESS. SKIN WARM AND DRY TO TOUCH. IV SITE IN L HAND 22G IS CLEAN, DRY, AND INTACT. SAFETY MEASURES IN PLACE. WILL CONTINUE TO MONITOR
[2020-10-11] MEDS: BLOOD GLUCOSE MONITORING 1 DEV DEV FS SCH ×3 (07:48→17:02)
[2020-10-11 08:00] VITALS: BP 111/69
[2020-10-11] MEDS: FERROUS SULFATE 325 MG TABEC PO SCH (08:00)
[2020-10-11 08:37] LABS: BASOPHILS # (AUTO) 0.1 K/uL (0.00-0.22); BASOPHILS % (AUTO) 0.4 % (0.0-2.0); EOSINOPHILS # (AUTO) 0.7 K/uL (0-0.4); EOSINOPHILS % (AUTO) 2.7 % (0.0-4.0); HEMATOCRIT 25.2 % (36-48); LYMPHOCYTES # (AUTO) 1.8 K/uL (2.5-16.5); MEAN CORPUSCULAR HEMOGLOBIN 24 pg (27-31); MEAN CORPUSCULAR HGB CONC 32 g/dL (33-37); MEAN CORPUSCULAR VOLUME 75.3 fL (80-94); MONOCYTES # (AUTO) 1.7 K/uL (0.8-1.0); MONOCYTES % (AUTO) 6.7 % (1.7-9.3); NEUTROPHILS % (AUTO) 83.2 % (42.2-75.2); PLATELET COUNT (AUTO) 475 K/uL (140-450); RED BLOOD CELL COUNT(AUTO) 3.35 MIL/uL (4.20-5.40); RED CELL DISTRIBUTION WIDTH 20.5 % (11.6-13.7)
[2020-10-11 09:00] LABS: WHITE BLOOD COUNT (AUTO) 25.3 K/uL (4.8-10.8)
--- NOTE | 2020-10-11 09:20 | NUR ---
[facility] OF LAB REPORTED CRITICAL LAB VALUES WBC - 25.3. DR. VELASQUEZ MADE AWARE.
[2020-10-11] MEDS: ZINC SULF 220 MG CAP PO SCH (09:44)
--- NOTE | 2020-10-11 09:44 | NUR ---
ADMINISTERED SCHED MED PRESCRIBED PER MD ORDER. PT TOLERATED WELL. MEDICATION EDUCATION PERFORMED. PT VERBALIZED UNDERSTANDING. SAFETY MEASURES IN PLACE. WILL CONTINUE TO MONITOR
[2020-10-11 10:03] LABS: ANION GAP 11.9 (8-16); CARBON DIOXIDE 27.5 mmol/L (21-32); CREATININE 0.5 mg/dL (0.6-1.3); POTASSIUM 3.4 mmol/L (3.5-5.1)
--- NOTE | 2020-10-11 11:30 | NUR ---
PT BLOOD SUGAR IS 166. HOLD INSULIN PATIENT DOES NOT HAVE MUCH OF AN APPETITE. SAFETY MEASURES IN PLACE. WILL CONTINUE TO MONITOR
[2020-10-11] MEDS ORDERED: ASPIRIN 325 MG TABEC PO SCH ×2 (12:00→17:00)
[2020-10-11] MEDS ORDERED: ASPIRIN 325 MG TAB PO SCH (12:00)
[2020-10-11 15:07] LABS: ANTI DOUBLE STRANDED DNA AB 2 IU/mL (0-9)
[2020-10-11 16:00] VITALS: BP 124/76
--- NOTE | 2020-10-11 16:30 | NUR ---
PT BLOOD SUGAR IS 98. NO INSULIN NEEDED AT THIS TIME. SAFETY MEASURES IN PLACE. WILL CONTINUE TO MONITOR
[2020-10-11] MEDS: ACETAMINOPHEN 325 MG TAB PO PRN (17:12)
--- NOTE | 2020-10-11 17:27 | NUR ---
ADMINISTERED SCHED MED PRESCRIBED PER MD ORDER. PT TOLERATED WELL. MEDICATION EDUCATION PERFORMED. PT VERBALIZED UNDERSTANDING. SAFETY MEASURES IN PLACE. WILL CONTINUE TO MONITOR
[2020-10-11] MEDS ORDERED: ASPI-1205 PO (17:38)
--- NOTE | 2020-10-11 19:30 | NUR ---
ENDORSED TO NIGHTSHIFT FOR CONTINUITY OF CARE. PT IS STABLE
--- NOTE | 2020-10-11 19:30 | NUR ---
RECEIVED PT AAOX4 , NID - O2 SAT WNL . PT IS FOR DISCHARGE TODAY ORDERED . DISCHARGE PACKET ALREADY PRINTED OUT BY NURSE LIZBETH Bauer I WILL DISCUSSED IT TO THE PT . DISCHARGE NEEDS ANTICIPATE .
--- NOTE | 2020-10-11 19:40 | NUR ---
DISCHARGE PACKET GIVEN - EXPLAIN THE HOME INSTRUCTION AND HOME MEDS TO HER , I TOLD HER TO CALL [facility] FOR FF UP CHECK UP - I GAVE HER THE TEL NUMBER OF DR. JAMES - PT VERBALIZE UNDERSTANDING . REMOVE 3 IV CANULLAS - MIN. BLEEDING - PT TOLERATED THE REMOVAL , 3 CANULLAS INTACT AND COMPLETED . WILL PROVIDE MASK , WHEEL CHAIR AND WILL DROPBY PT IN THE LOBBY - WHERE HER SON WAITING FOR HER TO COMB TENDER HER TO HOME .
--- NOTE | 2020-10-11 19:50 | NUR ---
RE DISCUSSED AGAIN THE HOMEMEDS AND HOME INSTRUCTION TO THE PT'S SON , PT 'S AWARE THEY HAVE TO CALL [facility] FOR FF UP CHECK UP I GAVE HIM A TEL. CARD OF DR. JAMES . HE ASKING ABOUT MEDICINE FOR HIS MOM DIABETES - NO MEDICINE PRESCRIBED FOR HER ON THE PACKET - I TOLD TO THE SON CALL OR FOLLOW UP W/ HIS MOM 'S DIABETES DOCTOR ABOUT IT - PT'S SON VERBALIZE UNDERSTANDING .
--- NOTE | 2020-10-11 19:55 | NUR ---
DISCHARGED PT - STABLE CONDITION - PICKED UP BY HER SON BY PRIVATE CAR .
[2020-10-12 15:21] LABS: ANTI-NUCLEAR ANTIBODY TITER Negative (.)
== END 2020-10-11 19:55 | disposition home or self-care (01) | DRG 720 ==
LOC: MED 08:11 → MTU 14:56
PROVIDERS: ADMIT Emergency Medicine; ATTEND Emergency Medicine
PROC: 30233N1 Transfusion of Nonautologous Red Blood Cells into Peripheral Vein, Percutaneous Approach (ICD-10-PCS; 2020-10-04)
PROC: 0DB68ZX Excision of Stomach, Via Natural or Artificial Opening Endoscopic, Diagnostic (ICD-10-PCS; principal; 2020-10-07 13:00)
PROC: 0DJD8ZZ Inspection of Lower Intestinal Tract, Via Natural or Artificial Opening Endoscopic (ICD-10-PCS; 2020-10-07 13:00)
DX: A41.9 Sepsis, unspecified organism (principal); G93.41 Metabolic encephalopathy; J96.01 Acute respiratory failure with hypoxia; J90 Pleural effusion, not elsewhere classified; E11.649 Type 2 diabetes mellitus with hypoglycemia without coma; J18.9 Pneumonia, unspecified organism; E83.42 Hypomagnesemia; I08.1 Rheumatic disorders of both mitral and tricuspid valves; N39.0 Urinary tract infection, site not specified; E87.6 Hypokalemia; D50.9 Iron deficiency anemia, unspecified; K57.90 Diverticulosis of intestine, part unspecified, without perforation or abscess without bleeding; Z20.822 Contact with and (suspected) exposure to COVID-19; K42.9 Umbilical hernia without obstruction or gangrene; K43.9 Ventral hernia without obstruction or gangrene; J98.11 Atelectasis; R59.1 Generalized enlarged lymph nodes; L03.113 Cellulitis of right upper limb; K29.70 Gastritis, unspecified, without bleeding; K25.9 Gastric ulcer, unspecified as acute or chronic, without hemorrhage or perforation; K64.8 Other hemorrhoids
CPT/HCPCS: 36415; 71045; 71250; 76641; 80048; 80202; 81001; 82272; 82607; 82728; 82746; 82948; 83036; 83520; 83540; 83605; 83615; 83735; 84100; 84436; 84439; 84443; 84479; 84484; 85025; 85045; 85610; 85651; 85730; 86038; 86140; 86430; 86886; 86900; 86901; 86920; 87040; 87081; 87086; 88305; 88312; 88313; 93005; 96365; 99285; C1758; J0696; J1200; J1644; J1815; J1956; J2001; J2250; J2405; J2916; J3010; J3370; J3475; J3480; J3490; J7030; J7042; J7060; P9016; U0003

== ENCOUNTER 2020-10-13 02:09 | Inpatient (IN) | payer MEDICAID, SELFPAY ==
[~2020-10-13] VITALS: Ht 165.1 cm; Wt 79.8 kg
[~2020-10-13 02:09] MED LIST: ASPI-1205 PO; GABA100C PO; HYDR200T5 PO; PRED5TAB7 PO
[2020-10-13] MEDS ORDERED: DEXT 5% / NACL 0.9% 500 ML IV ONE (02:20)
[2020-10-13] MEDS ORDERED: DEXTROSE 50% 50 ML SYR IVP ONE ×4 (02:20→11:49)
[2020-10-13 02:35] VITALS: BP 127/84
--- NOTE | 2020-10-13 02:58 | NUR ---
PT TAKEN TO BED 4
[2020-10-13 03:00] LABS: HEMATOCRIT 30.8 % (36-48); HEMOGLOBIN 9.3 g/dL (12.0-16.0); MEAN CORPUSCULAR HEMOGLOBIN 23 pg (27-31); MEAN CORPUSCULAR HGB CONC 30 g/dL (33-37); MEAN CORPUSCULAR VOLUME 76.4 fL (80-94); PLATELET COUNT (AUTO) 604 K/uL (140-450); RED BLOOD CELL COUNT(AUTO) 4.03 MIL/uL (4.20-5.40); RED CELL DISTRIBUTION WIDTH 20.9 % (11.6-13.7)
--- NOTE | 2020-10-13 03:01 | NUR ---
EKG PERFORMED AT BEDSIDE. EKG READS SINUS RHYTHM @ 81
[2020-10-13 03:04] LABS: WHITE BLOOD COUNT (AUTO) 55.1 K/uL (4.8-10.8)
--- NOTE | 2020-10-13 03:13 | NUR ---
PT WAS FEELING DIZZY AND WEAK AT HOME AROUND 2200 LAST NIGHT, BS WAS 54, FAMILY GAVE PT JUICE BUT NO FOOD, THEY LATER TOOK IT AROUNG 0100 AND IT WAS 21, FAMILY TRANSPORTED PT TO ER. PT WAS WEAK AND DIZZY. PT GIVEN JUICE IN TRIAGE. IV ESTABLISHED, AMP OF D5 GIVEN. PT PLACED IN BED 4, D5 NS INFUSING AT 100MLS/HR. CURRENT BS 118. PT STATES SHE STILL FEELS SHAKEY, DIZZY, AND WEAK. PT PLACED ON BEDSIDE MONITOR. BED IN LOWEST POSITION AND SIDE RAIL UP X 1. NKA HX - DM
[2020-10-13 03:14] LABS: ANION GAP 15.8 (8-16); CREATININE 0.6 mg/dL (0.6-1.3); POTASSIUM 3.8 mmol/L (3.5-5.1); TOTAL BILIRUBIN 0.2 mg/dL (0.0-1.0)
--- NOTE | 2020-10-13 03:35 | NUR ---
HELPED PT TO RESTROOM VIA WHEELCHAIR, SMALL AMOUNT OF RUNNY STOOL. ASSISTED BACK TO BED AND REPLACED ON BEDSIDE MONITOR AND IV FLUIDS
[2020-10-13 03:41] LABS: LYMPHOCYTES % (MANUAL) 10 % (20-46)
[2020-10-13] MEDS ORDERED: GLIP10TA3 PO (03:42)
--- NOTE | 2020-10-13 03:50 | NUR ---
PT RESTING ON GURNEY WITH EYES CLOSED, REMAINS ON BEDSIDE MONITOR. IV FLUIDS CONTINUE TO INFUSE AT 100MLS/HR. PT NO LONGER FEELING WEAK OR DIZZY. REMAINS ON BEDSIDE MONITOR
[2020-10-13] MEDS: DEXTROSE 5% 1,000 ML IV SCH ×2 (05:00→17:14)
--- NOTE | 2020-10-13 05:01 | NUR ---
PT ASSISTED TO RESTROOM. HELPED BACK TO BED, NEW IV FLUIDS STARTED, D5 AT 80ML/HR
--- NOTE | 2020-10-13 05:10 | NUR ---
PCR AND CARA SWAB COLLECTED AND TAKEN TO LAB
--- NOTE | 2020-10-13 07:01 | NUR ---
ACCU CHECK 53, MD LOPEZ NOTIFIED, ADVISED JUST FOR PT TO EAT BREAKFAST AND DRINK JUICE.
--- NOTE | 2020-10-13 07:06 | NUR ---
ASSISTED PT TO RESTROOM VIA WHEELCHAIR.
--- NOTE | 2020-10-13 07:12 | NUR ---
SPOKE TO DIETARY, ADVISED THAT PT NEEDS BREAKFAST TRAY, DIABETIC TRAY, PT IN BED 4 IN ER
--- NOTE | 2020-10-13 07:29 | NUR ---
Pt report given to ZEFERINO MCGINNIS. Transfer of care at this time.
[2020-10-13] MEDS: BLOOD GLUCOSE MONITORING 1 DEV DEV FS SCH ×4 (07:30→20:42)
[2020-10-13] MEDS ORDERED: guaiFENesin DM 200/20 MG-10 ML 10 ML UDC PO PRN (07:55)
[2020-10-13] MEDS ORDERED: ZOLPIDEM 5 MG TAB PO PRN (07:55)
[2020-10-13] MEDS ORDERED: DOCUSATE SODIUM 100 MG GELCAP PO PRN (07:55)
[2020-10-13] MEDS ORDERED: ONDANSETRON 4 MG/2 ML VIAL IM/IVP PRN (07:55)
[2020-10-13] MEDS ORDERED: ACETAMINOPHEN 325 MG TAB PO PRN (07:55)
[2020-10-13] MEDS ORDERED: POTASSIUM CHLORIDE 10 MEQ TABER PO PRN (07:55)
[2020-10-13] MEDS ORDERED: HYDROcodone/APAP 7.5/325 MG 1 TAB PO PRN (07:55)
--- NOTE | 2020-10-13 09:10 | NUR ---
PATIENT HAS BEEN SCREENED AND CATEGORIZED MODERATE NUTRITION RISK. PATIENT WILL BE SEEN WITHIN 3-5 DAYS OF ADMISSION. 10/15/20 10/17/[address]
[2020-10-13 09:23] LABS: FREE T4 (FREE THYROXINE) 1.42 ng/dL (0.76-1.46); MAGNESIUM 1.9 mg/dL (1.8-2.4); PHOSPHORUS 2.9 mg/dL (2.5-4.9); THYROID STIMULATING HORMONE 1.22 uIU/mL (0.34-3.74)
--- NOTE | 2020-10-13 09:37 | NUR ---
SOCIAL WORK NOTE: Patient's Orientation Unable To Assess Information Provided By WALT LUCIA - DAUGHTER Comments SW WAS UNABLE TO MEET PATIENT AT BEDSIDE TO COMPLETE ASSESSMENT. SW COMPLETED ASSESSMENT WITH DAUGHTER USING ACCREDITED PHARMACY TECHNICIAN PAULO [id number]. Braille Proofreader, Realtionship and Phone Number WALT LUCIA DAUGHTER [phone] Healthcare Power of Tape Editor No Does Patient Have a POLST No Identifying Problems No Social Work Triggers Is A Social Work Consult Needed No Mandate Report Filed No Explanation Of Identifying Problems PATIENT IS A 64-YEAR-OLD FEMALE ADMITTED FOR INTRACTABLE HYPOGLYCEMIA. PATIENT HAS PMHX OF HYPOGLYCEMIA. PATIENT'S PREVIOUS INPATIENT DC DATE WAS 10/11/2020. Admitted From Home Pre-Admission Level Of Functioning Status Assist With ADL Level Of Functioning Comment PER DAUGHTER, PATIENT REQUIRES ASSISTANCE WITH MEAL PREPARATION, BATHING, AND TOILETING. FAMILY PROVIDES APPROPRIATE SUPPORT. Prior Resources/Services Used In Last 12 Months No Prior Resources Used Prior DME Cane Dialysis Comments N/A Living Situation Lives With Family House Patient Had Caregiver No Home Support CG/Fam Able To Meet Need Financial Issues No Known Financial Issue Referral To The Financial Counselor Needed No Factors/Needs No D/C Needs Identified Pt/Rep Participated In Discharge Plan Yes Patient/Family Agress With Discharge Plan Yes Discharge Plan Comments TENTATIVE DISCHARGE PLAN IS FOR PATIENT TO RETURN HOME. DC Plan Status Initiated
[2020-10-13 09:50] LABS: APPEARANCE,URINE CLEAR (CLEAR); BILIRUBIN,URINE NEGATIVE (NEGATIVE); BLOOD, URINE NEGATIVE (NEGATIVE); LEUKOCYTE ESTERASE ,URINE TRACE (NEGATIVE); NITRITE, URINE NEGATIVE (NEGATIVE); UGLUCOSE NEGATIVE (NEGATIVE)
--- NOTE | 2020-10-13 09:56 | NUR ---
BS 24, another RN pulled out D50% 50 ml, administered med; no PRN order, CN informed, informing MD
[2020-10-13 10:05] LABS: COLOR,URINE YELLOW (YELLOW)
[2020-10-13 10:08] LABS: RBC,URINE 0-5 /HPF (0-5); WBC,URINE 0-5 /HPF (0-5)
--- NOTE | 2020-10-13 10:20 | NUR ---
Patient will be admitted to care of Dr LOPEZ. Admited to TELE]. Will go to room. Belongings list completed. Report to ANTONI MCGINNIS.
--- NOTE | 2020-10-13 10:30 | NUR ---
PT ARRIVED ON THIS UNIT AT THIS TIME. PT IS AWAKE ORIENTED X 4 COMMUNICATES EFFECTIVELY, DENIES DISTRESS AT THIS TIME. HAS IV ACCESS TO RIGHT AC THAT IS RECEIVING FLUIDS. LUNG SOUNDS CLEAR, ABD IS SOFT AND NONTENDER WITH ACTIVE BS X 4. SKIN INTACT. CALL LIGHT WITHIN REACH. ACCORDING TO TELEPHONE REPORT PTS LAST BS 136 AFTER D 50% GIVEN. WILL CONTINUE TO MONITOR.
[2020-10-13 10:45] VITALS: BP 120/58
[2020-10-13 10:56] LABS: BARBITURATE, URINE NEGATIVE ng/ml (NEG <=200); BENZODIAZEPINE, URINE NEGATIVE ng/mL (NEG <=200); CANNABINOID, URINE NEGATIVE ng/mL (NEG <=50); COCAINE, URINE NEGATIVE ng/mL (NEG <=300); OPIATE, URINE NEGATIVE ng/mL (NEG <=2000); PHENCYCLIDINE SCREEN,URINE NEGATIVE ng/mL (NEG <=25)
[2020-10-13 11:04] LABS: PROTHROMBIN TIME 13.1 secs (10.8-13.4)
--- NOTE | 2020-10-13 11:30 | NUR ---
BS 16 AT THIS TIME RECHECK WAS 20. PT WAS GIVEN DEXTROSE 50% IVP. UPON ASSESSMENT PT CONFUSED AND SWEATING WITH SLIGHT TREMOR TO UPPER EXTREMITIES. AFTER ADMINISTRATION OF DEXTROSE PT BECAME FULLY ORIENTED AND WAS TALKING ASKING WHAT HAPPENED. PT WAS ORIENTED AND GIVEN ORANGE JUICE X 2 PT TOLERATED WELL.
[2020-10-13 12:00] VITALS: BP 130/65
[2020-10-13] MEDS: PANTOPRAZOLE 40 MG TABEC PO SCH (12:00)
--- NOTE | 2020-10-13 12:15 | NUR ---
BS RECHECK WAS 65 PT WAS GIVEN MORE ORANGE JUICE AND ENCOURAGED TO EAT. PT IS CURRENTLY EATING DENIES ANY DISTRESS. RECEIVING D5 AT 80ML/HR TO RIGHT AC.
--- NOTE | 2020-10-13 14:25 | NUR ---
PT TALKING ON THE PHONE IN NO DISTRESS. ATE 80% OF LUNCH. AAO X 4. CALL LIGHT WITHIN REACH
[2020-10-13] MEDS: DEXTROSE 50% 50 ML SYR IVP PRN ×2 (15:35→17:02)
--- NOTE | 2020-10-13 15:55 | NUR ---
ACCU CHECK DONE BS 36, PT GIVEN DEXTROSE 50 PER STANDING ORDER AFTER 15 MIN BS 160 PT ALSO GIVEN ORANGE JUICE AND ENCOURAGED TO EAT SNACK. PT AAO4. DR. LOPEZ NOTIFIED OF RECENT HYPOGLYCEMIC EPISODES.
[2020-10-13 16:00] VITALS: BP 125/64
[2020-10-13] MEDS ORDERED: SODIUM FERRIC GLUCONATE 125 MG in NACL 0.9% 100 ML IV SCH (16:00)
--- NOTE | 2020-10-13 17:10 | NUR ---
BS WAS RECHECKED DUE TO PT APPEARING LETHARGIC BS 44 DEXTROSE 50 GIV[address] ORDER[address] LOPEZ NOTIFIED OF POSSIBLE HIGHER LEVEL OF CARE THAT IS NEEDED. PT REMAINS ON D5 AT 80ML TO LEFT AC. PT IS TALKING HOWEVER STATES SHE FEELS TIRED.
--- NOTE | 2020-10-13 17:20 | NUR ---
DR. LOPEZ TO TO GIVE SOLUMEDRO 80MG IV PUSH TONIGHT. ORDER SUBMITTED.
[2020-10-13] MEDS ORDERED: methylPREDNISolone SS 125 MG/2 ML VIAL IVP ONE (17:25)
--- NOTE | 2020-10-13 18:00 | NUR ---
SOLUMETROL IVP GIVEN WITH NO ISSUES. PT BS RECHECK 62 PT GIVEN 3 ORANGE JUICES. CHARGE NOTIFIED. WILL CONTINUE TO MONITOR.
--- NOTE | 2020-10-13 18:51 | NUR ---
PT WAS GIVEN ORANGE JUICE, CURRENT BS 74 PT STABLE WILL ENDORSE TO INFRASTRUCTURE MANAGER TO MONITOR CLOSELY.
--- NOTE | 2020-10-13 19:20 | NUR ---
PT ENDORSED TO CONFERENCE DIRECTOR FOR CONTINUITY OF CARE. PT IS STABLE AT THIS TIME. AWAKE WITH DINNER IN FRONT OF PT. ORANGE JUICE GIVEN TO PREVENT HYPOGLYCEMIC EPISODE AT THIS TIME. PT TOLERATED WELL. ENDORSED TO CLOSELY MONITOR DUE TO RAPID GLUCOSE DECLINE.
[2020-10-13 20:00] VITALS: BP 122/64
[2020-10-14] VITALS: BP 124/64
--- NOTE | 2020-10-14 | NUR ---
MADE ROUNDS , NO S/SX OF ACUTE DISTRESS NOTED - PER AM NURSE PT HAD SEVERE HYPOGLYCEMIC - WILL GIVE MIDNIGHT SNACK . CALL LIGHT WITHIN REACH
--- NOTE | 2020-10-14 02:00 | NUR ---
SLEEPING . CHEST RISE AND FALL EQUALLY - RA
[2020-10-14 04:00] VITALS: BP 120/64
--- NOTE | 2020-10-14 04:00 | NUR ---
O2 SAT WNL . NO S/SX OF ACUTE DISTRESS NOTED .CALL LIGHT WITHIN REACH .
[2020-10-14] MEDS: DEXTROSE 5% 1,000 ML IV SCH ×2 (05:37→17:57)
--- NOTE | 2020-10-14 05:51 | NUR ---
AWAKE NO COMPLAIN MADE . CALL LIGHT WITHIN REACH . ON TELE MONITOR .
[2020-10-14] MEDS: BLOOD GLUCOSE MONITORING 1 DEV DEV FS SCH ×4 (06:38→20:41)
--- NOTE | 2020-10-14 07:30 | NUR ---
RECEIVED BEDSIDE REPORT FROM SOLAR SALES MANAGER NURSE. PATIENT IS AWAKE, ALERT, AND COOPERATIVE. RESPIRATION EVEN UNLABORED ROOM AIR. NO DISTRESS NOTED. SKIN IS WARM AND DRY. IV PATENT AND INTACT. PLAN OF CARE WAS DISCUSSED. ALL SAFETY MEASURES IN PLACE. BED IS AT LOW POSITION. CALL LIGHT WITHIN REACH. WILL CONTINUE TO MONITOR.
[2020-10-14 08:00] VITALS: BP 102/53
[2020-10-14 08:46] LABS: FOLIC ACID 3.2 ng/mL (>3.0); T4 (THYROXINE) 7.7 ug/dL (4.5-12.0)
[2020-10-14] MEDS: PANTOPRAZOLE 40 MG TABEC PO SCH (09:01)
--- NOTE | 2020-10-14 09:10 | NUR ---
ALL SCHEDULED MEDS GIVEN. PT IS STABLE. NO DISTRESS NOTED. WILL CONTINUE TO MONITOR.
[2020-10-14 12:00] VITALS: BP 111/64
--- NOTE | 2020-10-14 12:30 | NUR ---
BLOOD GLUCOSE CHECK IS 336. NO INSULIN SCALE. MD NOTIFIED AND AWARE. NO INSULIN COVERAGE IS NEEDED.
[2020-10-14 12:44] LABS: BASOPHILS % (AUTO) 0.1 % (0.0-2.0); HEMATOCRIT 23.9 % (36-48); HEMOGLOBIN 7.4 g/dL (12.0-16.0); LYMPHOCYTES # (AUTO) 1.1 K/uL (2.5-16.5); LYMPHOCYTES % (AUTO) 5.6 % (20.5-51.1); MEAN CORPUSCULAR HEMOGLOBIN 24 pg (27-31); MEAN CORPUSCULAR HGB CONC 31 g/dL (33-37); MEAN CORPUSCULAR VOLUME 76.6 fL (80-94); MONOCYTES # (AUTO) 0.8 K/uL (0.8-1.0); MONOCYTES % (AUTO) 3.8 % (1.7-9.3); NEUTROPHILS # (AUTO) 18.4 K/uL (1.8-7.7); NEUTROPHILS % (AUTO) 90.5 % (42.2-75.2); PLATELET COUNT (AUTO) 564 K/uL (140-450); RED BLOOD CELL COUNT(AUTO) 3.13 MIL/uL (4.20-5.40); RED CELL DISTRIBUTION WIDTH 20.8 % (11.6-13.7); WHITE BLOOD COUNT (AUTO) 20.4 K/uL (4.8-10.8)
[2020-10-14 12:57] LABS: ANION GAP 13.6 (8-16); CARBON DIOXIDE 25.2 mmol/L (21-32); CREATININE 0.7 mg/dL (0.6-1.3); POTASSIUM 3.8 mmol/L (3.5-5.1)
[2020-10-14] MEDS ORDERED: predniSONE 20 MG TAB PO SCH (14:00)
--- NOTE | 2020-10-14 15:15 | NUR ---
PATIENT IS LAYING AND AWAKE IN BED. NO RESPIRATORY DISTRESS NOTED. WILL CONTINUE TO MONITOR.
[2020-10-14 16:00] VITALS: BP 106/57
--- NOTE | 2020-10-14 17:45 | NUR ---
BLOOD GLUCOSE CHECK IS 279. NO INSULIN COVERAGE NEEDED. MD IS AWARE OF PATIENTS BLOOD GLUCOSE.
--- NOTE | 2020-10-14 19:00 | NUR ---
ENDORSED TO MILL WORKER NURSE FOR CONTINUITY OF CARE. PT IS STABLE.
--- NOTE | 2020-10-14 19:10 | NUR ---
RECEIVED BEDSIDE REPORT FROM DAY SHIFT NURSE. PATIENT IS AWAKE, ALERT, AND COOPERATIVE. RESPIRATION EVEN UNLABORED ROOM AIR. NO DISTRESS NOTED. SKIN IS WARM AND DRY. IV PATENT AND INTACT. PLAN OF CARE WAS DISCUSSED. ALL SAFETY MEASURES IN PLACE. BED IS AT LOW POSITION. CALL LIGHT WITHIN REACH. WILL CONTINUE TO MONITOR.
[2020-10-14 20:00] VITALS: BP 112/60
--- NOTE | 2020-10-14 20:40 | NUR ---
CHECKED PATIENT BLOOD SUGAR.
--- NOTE | 2020-10-14 20:45 | NUR ---
PATIENT BLOOD SUGAR 308 NO INSULIN COVERAGE PER MD ORDER
[2020-10-15] VITALS: BP 112/65
--- NOTE | 2020-10-15 | NUR ---
VITALS WERE TAKEN
--- NOTE | 2020-10-15 02:27 | NUR ---
MADE ROUNDS PATIENT SLEEPING RESPIRATION EVEN UNLABORED ON ROOM AIR. NO DISTRESS NOTED. WILL CONTINUE TO MONITOR.
[2020-10-15 04:00] VITALS: BP 110/56
--- NOTE | 2020-10-15 04:00 | NUR ---
VITALS WERE TAKEN
--- NOTE | 2020-10-15 05:00 | NUR ---
MORNING CARE PROVIDED
[2020-10-15] MEDS: DEXTROSE 5% 1,000 ML IV SCH ×2 (06:06→18:35)
[2020-10-15] MEDS: BLOOD GLUCOSE MONITORING 1 DEV DEV FS SCH ×4 (06:35→21:00)
--- NOTE | 2020-10-15 07:36 | NUR ---
ENDORSED PATIENT TO DAY SHIFT NURSE AT BEDSIDE FOR CONTINUITY OF CARE.
--- NOTE | 2020-10-15 07:37 | NUR ---
RECEIVED REPORT FROM CALL WORKER PERSON NURSE. PATIENT IN STABLE CONDITION.
[2020-10-15 08:00] VITALS: BP 109/55
[2020-10-15 08:34] LABS: BASOPHILS # (AUTO) 0.1 K/uL (0.00-0.22); BASOPHILS % (AUTO) 0.4 % (0.0-2.0); HEMOGLOBIN 7.1 g/dL (12.0-16.0); LYMPHOCYTES # (AUTO) 1.4 K/uL (2.5-16.5); LYMPHOCYTES % (AUTO) 6.2 % (20.5-51.1); MEAN CORPUSCULAR HEMOGLOBIN 24 pg (27-31); MEAN CORPUSCULAR HGB CONC 31 g/dL (33-37); MEAN CORPUSCULAR VOLUME 76.6 fL (80-94); MONOCYTES # (AUTO) 1.5 K/uL (0.8-1.0); NEUTROPHILS # (AUTO) 18.9 K/uL (1.8-7.7); NEUTROPHILS % (AUTO) 86.4 % (42.2-75.2); PLATELET COUNT (AUTO) 581 K/uL (140-450); RED CELL DISTRIBUTION WIDTH 21.1 % (11.6-13.7); WHITE BLOOD COUNT (AUTO) 21.9 K/uL (4.8-10.8)
[2020-10-15 08:53] LABS: ANION GAP 12.1 (8-16); CARBON DIOXIDE 25.6 mmol/L (21-32); CREATININE 0.6 mg/dL (0.6-1.3); POTASSIUM 3.7 mmol/L (3.5-5.1)
[2020-10-15] MEDS: PANTOPRAZOLE 40 MG TABEC PO SCH (09:14)
[2020-10-15] MEDS: predniSONE 20 MG TAB PO SCH (09:15)
--- NOTE | 2020-10-15 09:15 | NUR ---
SCHEDULED MEDICATIONS DUE GIVEN. WILL CONTINUE TO MONITOR.
--- NOTE | 2020-10-15 11:00 | NUR ---
PATIENT SITTING IN BED ON HER PHONE. NO DISTRESS NOTED. CONDITION UNCHANGED. WILL CONTINUE TO MONITOR.
[2020-10-15 12:00] VITALS: BP 104/50
--- NOTE | 2020-10-15 14:30 | NUR ---
ASSISTED PATIENT IN CHANGING AND PERINEAL CARE. PATIENT TOLERATED WELL. WILL CONTINUE TO MONITOR.
[2020-10-15 16:00] VITALS: BP 112/56
--- NOTE | 2020-10-15 17:30 | NUR ---
PATIENT ON HER PHONE. NO DISTRESS NOTED. CONDITION UNCHANGED. WILL CONTINUE TO MONITOR.
--- NOTE | 2020-10-15 19:45 | NUR ---
GAVE REPORT TO ROLLER COASTER OPERATOR NURSE FOR CONTINUITY OF CARE. PATIENT IN STABLE CONDITION.
[2020-10-16 05:07] VITALS: BP 112/56
[2020-10-16 07:36] LABS: BASOPHILS # (AUTO) 0.1 K/uL (0.00-0.22); BASOPHILS % (AUTO) 0.3 % (0.0-2.0); HEMATOCRIT 24.6 % (36-48); HEMOGLOBIN 7.6 g/dL (12.0-16.0); LYMPHOCYTES # (AUTO) 1.8 K/uL (2.5-16.5); MEAN CORPUSCULAR HEMOGLOBIN 23 pg (27-31); MEAN CORPUSCULAR HGB CONC 31 g/dL (33-37); MEAN CORPUSCULAR VOLUME 76.1 fL (80-94); MONOCYTES # (AUTO) 2.1 K/uL (0.8-1.0); MONOCYTES % (AUTO) 6.4 % (1.7-9.3); NEUTROPHILS # (AUTO) 28.7 K/uL (1.8-7.7); PLATELET COUNT (AUTO) 607 K/uL (140-450); RED BLOOD CELL COUNT(AUTO) 3.24 MIL/uL (4.20-5.40)
[2020-10-16 08:00] VITALS: BP 123/57
[2020-10-16 08:01] LABS: ANION GAP 14.1 (8-16); CARBON DIOXIDE 27.3 mmol/L (21-32); CREATININE 0.6 mg/dL (0.6-1.3); POTASSIUM 3.4 mmol/L (3.5-5.1)
[2020-10-16 08:02] LABS: WHITE BLOOD COUNT (AUTO) 32.7 K/uL (4.8-10.8)
[2020-10-16] MEDS: BLOOD GLUCOSE MONITORING 1 DEV DEV FS SCH ×2 (08:05→12:18)
--- NOTE | 2020-10-16 08:50 | NUR ---
patient AOx4, denies any pain or discomfort. patient resting in bed, call light within reach. plans of care discussed with patient. encourages patient to call for assistance. Received critical lab at [phone], called Dr. Elena Casey at [phone] and informed him of the critical value. no new orders. will continue to monitor patient.
[2020-10-16 09:16] LABS: NEUTROPHILS % (AUTO) 87.8 % (42.2-75.2)
[2020-10-16 09:17] LABS: LYMPHOCYTES % (AUTO) 5.5 % (20.5-51.1)
[2020-10-16] MEDS: DEXTROSE 5% 1,000 ML IV SCH (09:31)
[2020-10-16] MEDS: predniSONE 20 MG TAB PO SCH (09:32)
[2020-10-16] MEDS: PANTOPRAZOLE 40 MG TABEC PO SCH (09:33)
[2020-10-16] MEDS ORDERED: CEPH250C16 PO (13:22)
[2020-10-16] MEDS ORDERED: PRED20TA5 PO (13:22)
[2020-10-16] MEDS ORDERED: [UNRECOGNIZED DRUG - SUPPLY] FS (13:23)
[2020-10-16 14:40] VITALS: BP 113/64
--- NOTE | 2020-10-16 16:50 | NUR ---
Patient AOx4, bermudian speaking only. Bahraini translation used to communicate with patient. patient's blood sugar stable. patient denies any pain. plans of care discussed with patient in the morning. Discharged patient home. Discharge instruction given in bermudian and Guyanese, his son, came to pick her up and explained to him the discharge instructions as well, verbalized understanding. Discontinued PIV line on Left AC, discontinued tele box. Patient took all her belongings and left at 1650
== END 2020-10-16 16:45 | disposition home or self-care (01) | DRG 420 ==
LOC: MED 02:09 → MTU 04:03 → MMU 08:58
PROVIDERS: ADMIT Family Medicine; ATTEND Family Medicine
DX: E11.649 Type 2 diabetes mellitus with hypoglycemia without coma (principal); G93.41 Metabolic encephalopathy; Z20.822 Contact with and (suspected) exposure to COVID-19; M19.90 Unspecified osteoarthritis, unspecified site; D72.829 Elevated white blood cell count, unspecified; M08.20 Juvenile rheumatoid arthritis with systemic onset, unspecified site; Z79.899 Other long term (current) drug therapy; D64.9 Anemia, unspecified; Z68.29 Body mass index [BMI] 29.0-29.9, adult; T50.995A Adverse effect of other drugs, medicaments and biological substances, initial encounter; Y92.89 Other specified places as the place of occurrence of the external cause; E43 Unspecified severe protein-calorie malnutrition
CPT/HCPCS: 36415; 71045; 80048; 80053; 80305; 81001; 82150; 82607; 82728; 82746; 82948; 83036; 83540; 83690; 83735; 83880; 83891; 83900; 83909; 83912; 84100; 84436; 84439; 84443; 84479; 84484; 85007; 85025; 85045; 85610; 85651; 85730; 86140; 87040; 87086; 88189; 93005; 96361; 96374; 99291; J0696; J2916; J2930; J7042; J7060; J7512; U0003

== ENCOUNTER 2021-01-04 20:53 | Emergency (ER) | payer MEDICAID, SELFPAY ==
[~2021-01-04] VITALS: Ht 162.6 cm; Wt 63.0 kg
[~2021-01-04 20:53] MED LIST changes: -ASPI-1205 PO; +CEPH250C16 PO; -GABA100C PO; -HYDR200T5 PO; +PRED20TA5 PO; -PRED5TAB7 PO; +[UNRECOGNIZED DRUG - SUPPLY] FS
[2021-01-04 21:00] VITALS: BP 120/71
[2021-01-05] MEDS ORDERED: ERYTHROMYCIN 0.5% OPTH OINT 1 GM TUBE RIGHT EYE ONE (02:50)
[2021-01-05] MEDS ORDERED: ERYT5OIN51 RIGHT EYE (02:54)
[2021-01-05] MEDS ORDERED: TOBR5SOL17 RIGHT EYE (02:58)
[2021-01-05] MEDS ORDERED: TOBRAMYCIN 0.3% OPTH SOL 5 ML BTL RIGHT EYE SCH (03:00)
[2021-01-05] MEDS ORDERED: GENTAMICIN OP 0.3% 15 MG/5 ML BTL OP ONE (03:15)
[2021-01-05] MEDS ORDERED: GENTAMICIN OP 0.3% 15 MG/5 ML BTL ONE (03:16)
[2021-01-05 03:30] VITALS: BP 118/60
[2021-01-07] MEDS ORDERED: OMEP20EC11 PO (13:27)
[2021-01-07] MEDS ORDERED: MEX2.5 SUBQ (13:27)
[2021-01-07] MEDS ORDERED: PRED10TA5 PO (13:27)
== END 2021-01-05 03:30 | disposition home or self-care (01) ==
LOC: MED 20:53
DX: H10.9 Unspecified conjunctivitis (principal); B96.89 Other specified bacterial agents as the cause of diseases classified elsewhere; E11.9 Type 2 diabetes mellitus without complications; Z79.84 Long term (current) use of oral hypoglycemic drugs; Z79.899 Other long term (current) drug therapy
CPT/HCPCS: 99283

== ENCOUNTER 2021-06-13 03:58 | Emergency (ER) | payer MEDICAID, SELFPAY ==
[~2021-06-13] VITALS: Ht 149.9 cm; Wt 65.8 kg
[~2021-06-13 03:58] MED LIST changes: +MEX2.5 SUBQ; +OMEP20EC11 PO; +POTA10TE30 PO; +PRED10TA5 PO; -PRED20TA5 PO; +TRAM50TA1 PO; -[UNRECOGNIZED DRUG - SUPPLY] FS
[2021-06-13 04:05] VITALS: BP 146/84
--- NOTE | 2021-06-13 04:10 | NUR ---
PT AMBULATED TO RESTROOM WITH DAUGHTER BY SIDE.
--- NOTE | 2021-06-13 04:32 | NUR ---
PHAN ASSESSING PT IN [facility].
[2021-06-13] MEDS ORDERED: IBUP-2213 PO (04:42)
[2021-06-13] MEDS ORDERED: CIPR500T4 PO (04:42)
[2021-06-13] MEDS ORDERED: ONDA8TAB87 PO (04:42)
[2021-06-13] MEDS: ONDANSETRON 4 MG/2 ML VIAL IVP ONE (05:16)
[2021-06-13] MEDS: NACL 0.9% 1,000 ML IV SCH (05:17)
[2021-06-13] MEDS: KETOROLAC 30 MG/ML VIAL IVP ONE (05:35)
[2021-06-13 06:10] VITALS: BP 132/72
--- NOTE | 2021-06-13 06:10 | NUR ---
Patient discharged with v/s stable. Written and verbal after care instructions given and explained. Patient alert, oriented and verbalized understanding of instructions. Ambulatory with steady gait. All questions addressed prior to discharge. ID band removed. Patient advised to follow up with PMD. Rx of CIPRO, MOTRIN AND ZOFRAN given. Patient educated on indication of medication including possible reaction and side effects. Opportunity to ask questions provided and answered.
== END 2021-06-13 06:10 | disposition home or self-care (01) ==
LOC: MED 03:58
DX: N39.0 Urinary tract infection, site not specified (principal); R11.2 Nausea with vomiting, unspecified; R51.9 Headache, unspecified; E11.9 Type 2 diabetes mellitus without complications; I10 Essential (primary) hypertension
CPT/HCPCS: 81002; 96361; 96374; 96375; 99284; J1885; J2405; J7030

== ENCOUNTER 2021-11-07 10:27 | Emergency (ER) | payer MEDICAID, SELFPAY ==
[~2021-11-07] VITALS: Ht 175.3 cm; Wt 67.1 kg
[~2021-11-07 10:27] MED LIST changes: +CIPR500T4 PO; +IBUP-2213 PO; +ONDA8TAB87 PO; +POTA10TA70 PO; -POTA10TE30 PO
[2021-11-07 10:55] VITALS: BP 121/69
[2021-11-07] MEDS ORDERED: ACETAMINOPHEN EXTRA STRENGTH 500 MG TAB PO ONE (11:00)
--- NOTE | 2021-11-07 11:00 | NUR ---
Sabra jones in [facility] - 11/07/21 at 1109 by [email or web address] TENT 1
--- NOTE | 2021-11-07 11:01 | NUR ---
C/O FEVER, NAUSEA, DIARRHEA, BODY ACHE X2 DAYS. COVID TESTED NEGATIVE LAST WEEK. P 111, TEMP 100.1 AT THIS TIME. PMH: DM, HLD, ARTHRITIS
--- NOTE | 2021-11-07 11:09 | NUR ---
TENT 2
--- NOTE | 2021-11-07 11:09 | NUR ---
COVID CARA SWAB DONE.
[2021-11-07] MEDS ORDERED: ONDA-188 PO (12:34)
[2021-11-07] MEDS ORDERED: ATRO1TAB PO (12:34)
[2021-11-07 12:40] VITALS: BP 116/62
--- NOTE | 2021-11-07 12:40 | NUR ---
Patient discharged with v/s stable. Written and verbal after care instructions given and explained. Patient alert, oriented and verbalized understanding of instructions. Ambulatory with steady gait. All questions addressed prior to discharge. ID band removed. Patient advised to follow up with PMD. Rx of LOMOTIL & ZOFRAN given. Patient educated on indication of medication including possible reaction and side effects. Opportunity to ask questions provided and answered.
== END 2021-11-07 12:40 | disposition home or self-care (01) ==
LOC: MED 10:27
DX: R19.7 Diarrhea, unspecified (principal); R50.9 Fever, unspecified; M79.10 Myalgia, unspecified site; E11.9 Type 2 diabetes mellitus without complications; Z20.822 Contact with and (suspected) exposure to COVID-19
CPT/HCPCS: 99283

== ENCOUNTER 2022-02-04 10:44 | Inpatient (IN) | payer MEDICAID ==
[~2022-02-04] VITALS: Ht 162.6 cm; Wt 58.1 kg
[~2022-02-04 10:44] MED LIST changes: +ATRO1TAB PO; -CEPH250C16 PO; -CIPR500T4 PO; +ONDA-188 PO; +PRED20TA5 PO
[2022-02-04 10:53] VITALS: BP 130/70
--- NOTE | 2022-02-04 11:26 | NUR ---
66 Y/O FEMALE BIB SON WITH C/O DIZZINESS, FATIGUE AND COUGH X1 WEEK. STATES SHE WAS SEEN BY HER PCP YESTERDAY AND REFERRED TO ED FOR EVALUATION OF SYMPTOMATIC ANEMIA AND POSSIBLE PNA. STATES HGB WAS 8.3 AND WBC 14.59 YESTERDAY. PT ALERT AND ORIENTED X4. PT DENIES SOB, CHEST PAIN. PT DENIES FEVER, CHILLS. VSS. BP 127/63, R 28,O2 SAT 96% ROOM AIR. LUNGS CTA. BED IN LOWEST POSITION, BED RAIL X1. PMH: ANEMIA, ARTHRITIS, PREDIABETIC ALLERGIES: NKA
--- NOTE | 2022-02-04 11:33 | NUR ---
LAB AT PT BEDSIDE
--- NOTE | 2022-02-04 11:34 | NUR ---
XR AT PT BEDSIDE
[2022-02-04 11:55] LABS: BASOPHILS # (AUTO) 0.2 K/uL (0.00-0.22); EOSINOPHILS # (AUTO) 0.5 K/uL (0-0.4); HEMATOCRIT 28.5 % (36-48); HEMOGLOBIN 8.8 g/dL (12.0-16.0); MEAN CORPUSCULAR HEMOGLOBIN 23 pg (27-31); MEAN CORPUSCULAR HGB CONC 31 g/dL (33-37); RED BLOOD CELL COUNT(AUTO) 3.86 MIL/uL (4.20-5.40); WHITE BLOOD COUNT (AUTO) 17.2 K/uL (4.8-10.8)
[2022-02-04 11:58] LABS: BASOPHILS % (AUTO) 1.2 % (0.0-2.0); EOSINOPHILS % (AUTO) 3.2 % (0.0-4.0); LYMPHOCYTES # (AUTO) 1.9 K/uL (2.5-16.5); MEAN CORPUSCULAR VOLUME 73.7 fL (80-94); MONOCYTES # (AUTO) 2.8 K/uL (0.8-1.0); NEUTROPHILS # (AUTO) 11.7 K/uL (1.8-7.7); NEUTROPHILS % (AUTO) 67.9 % (42.2-75.2); PLATELET COUNT (AUTO) 288 K/uL (140-450); RED CELL DISTRIBUTION WIDTH 22.6 % (11.6-13.7)
[2022-02-04 12:10] LABS: ANION GAP 13.2 (8-16); CARBON DIOXIDE 26.5 mmol/L (21-32); CREATININE 0.7 mg/dL (0.6-1.3); POTASSIUM 3.7 mmol/L (3.5-5.1)
[2022-02-04 12:23] LABS: LYMPHOCYTES % (AUTO) 11.3 % (20.5-51.1); MONOCYTES % (AUTO) 16.4 % (1.7-9.3)
[2022-02-04 12:33] LABS: PROTHROMBIN TIME 10.1 secs (10.8-13.4)
[2022-02-04] MEDS ORDERED: CEFEPIME 1,000 MG in DEXTROSE 5% 50 ML IV ONE (12:35)
[2022-02-04] MEDS ORDERED: NACL 0.9% 1,000 ML IV ONE (12:35)
[2022-02-04] MEDS ORDERED: VANCOMYCIN 1,000 MG in DEXTROSE 5% 250 ML IV ONE (12:35)
[2022-02-04] MEDS ORDERED: ALBUTEROL SULFATE/IPRATROPIU 3 ML SOL IH PRN (13:10)
[2022-02-04] MEDS ORDERED: CEFEPIME 1,000 MG VIAL ONE ×2 (13:36→21:40)
--- NOTE | 2022-02-04 14:31 | NUR ---
URINE WALKED TO LAB
[2022-02-04] MEDS ORDERED: FOLI1TAB90 PO (14:35)
[2022-02-04] MEDS ORDERED: [UNRECOGNIZED DRUG - CODE] SQ (14:37)
--- NOTE | 2022-02-04 14:43 | NUR ---
Patient will be admitted to care of . Admited to MED SURG. Will go to room 122 B. Belongings list completed. Report to RAS MEJÍA.
--- NOTE | 2022-02-04 15:00 | NUR ---
RECEIVED PATIENT FROM ER AMBULATORY ON ROOM AIR, PATIENT CHIEF COMPLAINT ABNORMAL LABS, MD NOTED COUGHING DID A CHEST X RAY AND PATIENT WAS DIAGNOSED WITH PNEUMONIA. PATEIN ARRIVED WITH A 22G ON HER RFA. NS WIDE OPEN. NKA, FULL CODE. S1 AND S2 HEARD UPON AUSCULTATION, LUNGS CLEAR. ABDOMEN SOFT NONTENDER AND BOWEL SOUNDS NORMAL ACTIVE. PATIENT ON REGULAR DIET. VACCINATED X2 MADERNA AND X1 BOOSTER. COVID NEGATIVE. WILL CONTINUE TO MONITOR. PATIENT WITH A HISTORY OF ANEMIA. BED AT LOWEST POSITION AND LOCKED. CALL LIGHT WITHIN REACH, PATIENT GEORGIAN SPEAKING.
[2022-02-04 15:13] LABS: APPEARANCE,URINE HAZY (CLEAR); BILIRUBIN,URINE NEGATIVE (NEGATIVE); BLOOD, URINE NEGATIVE (NEGATIVE); LEUKOCYTE ESTERASE ,URINE TRACE (NEGATIVE); NITRITE, URINE NEGATIVE (NEGATIVE); PH,URINE 6.5 (5.0-9.0); UGLUCOSE NEGATIVE (NEGATIVE)
[2022-02-04 15:18] LABS: COLOR,URINE YELLOW (YELLOW)
[2022-02-04] MEDS ORDERED: ONDANSETRON 4 MG/2 ML VIAL IM/IVP PRN (15:25)
[2022-02-04] MEDS ORDERED: POTASSIUM CHLORIDE 10 MEQ TABER PO PRN (15:25)
[2022-02-04] MEDS ORDERED: HYDROcodone/APAP 7.5/325 MG 1 TAB PO PRN (15:25)
[2022-02-04] MEDS ORDERED: guaiFENesin DM 200/20 MG-10 ML 10 ML UDC PO PRN (15:25)
[2022-02-04] MEDS ORDERED: DOCUSATE SODIUM 100 MG GELCAP PO PRN (15:25)
[2022-02-04] MEDS: NACL 0.9% 1,000 ML IV SCH (17:50)
[2022-02-04 18:27] LABS: RBC,URINE NONE SEEN /HPF (0-5); WBC,URINE 0-5 /HPF (0-5)
[2022-02-04 18:29] LABS: FREE T4 (FREE THYROXINE) 1.24 ng/dL (0.76-1.46); MAGNESIUM 2.1 mg/dL (1.8-2.4); PHOSPHORUS 4.4 mg/dL (2.5-4.9); THYROID STIMULATING HORMONE 1.45 uIU/mL (0.34-3.74)
--- NOTE | 2022-02-04 19:15 | NUR ---
RECEIVED ENDORSEMENT FROM RAS MARCOS FOR CONTINUITY OF CARE. PATIENT IS AWAKE AND STABLE. A&OX4. SPANISHING SPEAKING ONLY. VERBALLY RESPONSIVE AND ABLE TO COMMUNICATE NEEDS. ON ROOM AIR WITH NO APPARENT S/SX OF ACUTE DISTRESS. RESPIRATIONS EVEN AND UNLABORED WITH NO APPARENT S/SX OF ACUTE DISTRESS. AMBULATORY AND SKIN IS INTACT. CONTINENT OF VOID AND BM. IV SITE TO THE R WRIST 24G PATENT/INTACT WITH NS INFUSING AT 45 ML/HR. PLAN OF CARE AND WHITE COMMUNICATION BOARD UPDATED. ALL SAFETY MEASURES IN PLACE. CALL LIGHT WITHIN REACH. WILL CONTINUE TO MONITOR.
[2022-02-04 20:00] VITALS: BP 111/52
--- NOTE | 2022-02-04 21:00 | NUR ---
ADMINISTERED SCHEDULED PO MEDS PER MD ORDER. TOLERATED WELL. DENIES PAIN. RESPIRATIONS EVEN AND UNLABORED WITH NO APPARENT S/SX OF ACUTE DISTRESS. WHITE COMMUNICATION BOARD UPDATED. ALL SAFETY MEASURES IN PLACE. CALL LIGHT WITHIN REACH. WILL CONTINUE TO MONITOR.
[2022-02-04] MEDS: ZOLPIDEM 5 MG TAB PO PRN (21:21)
[2022-02-04] MEDS: CEFEPIME 1,000 MG in DEXTROSE 5% 50 ML IV SCH (22:21)
--- NOTE | 2022-02-04 23:10 | NUR ---
PATIENT IS STABLE AND ASLEEP. CHEST IS RISING AND FALLING EVENLY. RESPIRATIONS EVEN AND UNLABORED WITH NO APPARENT S/SX OF ACUTE DISTRESS. WHITE COMMUNICATION BOARD UPDATED. ALL SAFETY MEASURES IN PLACE. CALL LIGHT WITHIN REACH. WILL CONTINUE TO MONITOR.
--- NOTE | 2022-02-05 01:10 | NUR ---
PATIENT'S IV DISLODGED. RAS ECHOLS ESTABLISHED NEW IV LINE ON RIGHT LOWER ARM 24G. TOLERATED WELL. DENIES PAIN. RESPIRATIONS EVEN AND UNLABORED WITH NO APPARENT S/SX OF ACUTE DISTRESS. WHITE COMMUNICATION BOARD UPDATED. ALL SAFETY MEASURES IN PLACE. CALL LIGHT WITHIN REACH. WILL CONTINUE TO MONITOR.
--- NOTE | 2022-02-05 03:35 | NUR ---
ROUNDED ON PATIENT. PATIENT IS STABLE AND ASLEEP. CHEST IS RISING AND FALLING EVENLY. RESPIRATIONS EVEN AND UNLABORED WITH NO APPARENT S/SX OF ACUTE DISTRESS. WHITE COMMUNICATION BOARD UPDATED. ALL SAFETY MEASURES IN PLACE. CALL LIGHT WITHIN REACH. WILL CONTINUE TO MONITOR.
[2022-02-05 04:00] VITALS: BP 118/53
--- NOTE | 2022-02-05 04:10 | NUR ---
PATIENT'S TEMPERATURE 100F. PATIENT'S SKIN FEELS WARM. PATIENT DENIES PAIN OR HEADACHE. MEDICATED WITH TYLENOL PER PRN ORDER. TOLERATED WELL.
[2022-02-05] MEDS: ACETAMINOPHEN 325 MG TAB PO PRN ×2 (04:11→16:36)
--- NOTE | 2022-02-05 05:10 | NUR ---
RE-ASSESSED PATIENT'S TEMPERATURE: 98.8F. DENIES PAIN. RESPIRATIONS EVEN AND UNLABORED WITH NO APPARENT S/SX OF ACUTE DISTRESS. ALL NEEDS MET. WHITE COMMUNICATION BOARD UPDATED. ALL SAFETY MEASURES IN PLACE. CALL LIGHT WITHIN REACH. WILL CONTINUE TO MONITOR.
[2022-02-05 05:12] LABS: BASOPHILS # (AUTO) 0.1 K/uL (0.00-0.22); BASOPHILS % (AUTO) 1.1 % (0.0-2.0); EOSINOPHILS # (AUTO) 0.4 K/uL (0-0.4); EOSINOPHILS % (AUTO) 2.9 % (0.0-4.0); HEMATOCRIT 25.9 % (36-48); HEMOGLOBIN 8.1 g/dL (12.0-16.0); LYMPHOCYTES % (AUTO) 14.5 % (20.5-51.1); MEAN CORPUSCULAR HEMOGLOBIN 23 pg (27-31); MEAN CORPUSCULAR HGB CONC 31 g/dL (33-37); MEAN CORPUSCULAR VOLUME 73.7 fL (80-94); MONOCYTES # (AUTO) 2.5 K/uL (0.8-1.0); MONOCYTES % (AUTO) 18.2 % (1.7-9.3); NEUTROPHILS # (AUTO) 8.6 K/uL (1.8-7.7); NEUTROPHILS % (AUTO) 63.3 % (42.2-75.2); PLATELET COUNT (AUTO) 357 K/uL (140-450); RED BLOOD CELL COUNT(AUTO) 3.52 MIL/uL (4.20-5.40); RED CELL DISTRIBUTION WIDTH 22.2 % (11.6-13.7); WHITE BLOOD COUNT (AUTO) 13.7 K/uL (4.8-10.8)
[2022-02-05 05:22] LABS: CARBON DIOXIDE 23.7 mmol/L (21-32); CREATININE 0.6 mg/dL (0.6-1.3); POTASSIUM 3.7 mmol/L (3.5-5.1)
[2022-02-05 06:19] LABS: T4 (THYROXINE) 9.4 ug/dL (4.5-12.0)
--- NOTE | 2022-02-05 07:10 | NUR ---
ENDORSED PATIENT TO AMY GROVE FOR CONTINUITY OF CARE. PATIENT IS STABLE.
--- NOTE | 2022-02-05 07:11 | NUR ---
RECEIVED REPORT FROM MIMEOGRAPH OPERATOR NURSE FOR CONTINUITY OF CARE. PATIENT IS AWAKE AND AMBULATING TO REST ROOM AT THIS TIME. PT IS A&OX4. ROMANIAN SPEAKING ONLY. ABLE TO VERBALIZE NEEDS TO STAFF AND ABLE TO FOLLOW COMMANDS. RESPIRATIONS ARE EVEN AND UNLABORED ON ROOM AIR, NO SIGNS OF DISTRESS NOTED. ABD IS NONTENDER, NONDISTENDED WITH BOWEL SOUNDS PRESENT. SKIN IS WARM, DRY, AND INTACT. PT HAS IV SITE TO THE LFA 24G PATENT/INTACT WITH NS INFUSING AT 45 ML/HR. ALL SAFETY MEASURES IN PLACE. CALL LIGHT WITHIN REACH. WILL CONTINUE TO MONITOR.
[2022-02-05 08:00] VITALS: BP 96/52
--- NOTE | 2022-02-05 08:00 | NUR ---
Patient's Plan of Care was discussed and reviewed with AMY: PEFRECTO REYES, WILL CONTINUE WITH CURRENT POC.
[2022-02-05] MEDS: PANTOPRAZOLE 40 MG TABEC PO SCH (08:29)
--- NOTE | 2022-02-05 08:29 | NUR ---
ADMINISTERED SCHEDULED MEDICATION. EDUCATED PT ON MEDS ADMINISTERED. PT VERBALIZED UNDERSTANDING. DR LOPEZ AT BEDSIDE, GOING OVER PLAN OF CARE WITH PT. ALL QUESTIONS ANSWERED. PT IS IN AGREEMENT WITH POC. WILL CONTINUE TO MONITOR.
[2022-02-05] MEDS: CEFEPIME 1,000 MG in DEXTROSE 5% 50 ML IV SCH (09:08)
--- NOTE | 2022-02-05 11:45 | NUR ---
DID ROUNDS ON PT. PT RESTING AT THIS TIME. RESPIRATIONS ARE EVEN AND UNLABORED. NO SIGNS OF DISTRESS NOTED. NO SIGNS OF PAIN OR DISCOMFORT NOTED. WILL CONTINUE TO MONITOR.
[2022-02-05] MEDS: NACL 0.9% 1,000 ML IV SCH (13:38)
--- NOTE | 2022-02-05 14:03 | NUR ---
PT PULLED OUT IV. WILL ATTEMPT IV ACCESS. WILL CONTINUE TO MONITOR.
--- NOTE | 2022-02-05 14:38 | NUR ---
NEW IV PLACED, R HAND 22G. WILL CONTINUE TO MONITOR.
--- NOTE | 2022-02-05 14:48 | NUR ---
DC PLANNING: THE PATIENT PRESENTED FROM HOME WITH C/O SYMPTOMATIC ANEMIA. SHE WAS DIRECTED TO THE ED BY HER PMD LAST WEEK BECAUSE OF LOW H&H WITH S/S FATIGUE AND SOB. WBC'S ON ADMISSION WERE 17.2, H&H 8.8 AND 28.5, CXR SHOWS PATCHY LUNG BASE OPACITIES WITH POSSIBLE PNA. GIVEN ROCEPHIN AND VANCO IV, IVF'S IN THE ER, PATIENT ON RA. THE PATIENT IS KNOWN TO THE COOKER CHIP FROM A PREVIOUS ADMISSION, SW ALSO SPOKE WITH THE PATIENTS FAMILY. THE PATIENT LIVES WITH HER DAUGHTER WALT IN A SINGLE STORY HOUSE IN [place]. SHE HAS DME OF A CANE, FWW AND GLUCOMETER AND IS ABLE TO AMBULATE INDEPENDENTLY USING A FWW. NO H/O HOME HEALTH, FAMILY ASSISTS WITH ADL'S NEEDED. THE PATIENT SOMETIMES STAYS WITH HER SON DINA IN [place] AND WAS STAYING WITH HIM WHEN SHE CAME TO THE ED. SHE WILL DC TO HER HOME IN [place] WHEN SHE'S CLINICALLY STABLE AND FAMILY WILL PROVIDE TRANSPORT. CM WILL FOLLOW.
[2022-02-05 16:00] VITALS: BP 106/60
--- NOTE | 2022-02-05 16:36 | NUR ---
PT HAS TEMP OF 100.0, STARTED COOLING MEASURES. ADMINISTERED PO TYLENOL. EDUCATED PT ON COOLING MEASURES. WILL CONTINUE TO MONITOR.
--- NOTE | 2022-02-05 17:00 | NUR ---
DC PLANNING PATIENT IS A 66-YEAR-OLD FEMALE ADMITTED ON A 02/04/2022 FROM THE [facility]/ED DUE TO HER HEMOGLOBIN AND HEMATOCRIT BEEN LOW SINCE LAST WEEK. PATIENT HAS MEDICAL HX OF PRE-DIABETES, HYPERTENSION AND ANEMIA. (PATIENT IS CONGOLESE SPEAKING ONLY). MARIO MET WITH PATIENT AT BEDSIDE TO DISCUSS AND GATHER HER COLLATERAL INFORMATION. PATIENT REPORTED LIVING AT HOME WITH HER DAUGHTER WALT AND HER GRANDCHILD IN [facility]. PATIENT ALSO VISITS AND STAYS OVER THE WEEKENDS AT HER OTHER DAUGHTER SELENE AND SON DINA IN THE [facility]. PATIENT REPORTED THAT HER DAUGHTER WALT IS HER EMERGENCY CONTACT AND HER MEDICAL DECISION MAKER. PER PATIENT SHE DISCLOSED DO NOT HAVE ADVANCE DIRECTIVES AND SHE IS NOT INTERESTED ON GETTING THE INFORMATION FORMS PROVIDED BY MARIO. PATIENT REPORTED NOT HAVING ANY ISSUES GETTING OR TAKING HER MEDICATIONS FROM THE [facility] IN [place] NEAR HER HOME. PATIENT STATED HAVING A CANE AND A WALKER HER ONLY DME AT HOME AND BEEN ABLE TO CONTINUE TO BE INDEPENDENT WITH HER DME. PATIENT REPORTED GOING TO A CLINIC IN [facility] AND SEEING A DOCTOR THERE; SHE COULD NOT REMEMBER THE NAME BUT AGREED TO MAKE A FOLLOW UP APPOINTMENT WHEN SHE IS READY TO DISCHARGE. PATIENT'S DAUGHTER WALT CALL DURING THE VISIT AND CONFIRMED THE INFORMATION PROVIDED BY PATIENT AND STATED THAT SHE WILL BE ASSISTING PATIENT WITH TRANSPORTATION BACK HOME WHEN SHE IS READY TO DC MARIO THANK HER FOR HER INF. AND LEFT HER ROOM. SW WILL FOLLOW UP NEEDED.
--- NOTE | 2022-02-05 18:44 | NUR ---
PT PULLED OUT ANOTHER IV. EDUCATED PT ON NEED FOR IV ACCESS AND THE DANGERS OF PULLING AT IV. PT STATED "I DIDNT DO IT. I JUST ADJUST MYSELF IN BED AND IM NOT RESPONSIBLE FOR WHAT HAPPENS AFTER". WILL ATTEMPT IV ACCESS AGAIN. WILL CONTINUE TO MONITOR.
--- NOTE | 2022-02-05 19:00 | NUR ---
UNABLE TO OBTAIN IV ACCESS. WILL ENDORSE TO STATE PILOT NURSE.
--- NOTE | 2022-02-05 19:35 | NUR ---
ENDORSED PT TO JAVA WEB DEVELOPER NURSE FOR CONTINUITY OF CARE. PT IS STABLE.
--- NOTE | 2022-02-05 19:35 | NUR ---
RECEIVED ENDORSEMENT FROM AMY GROVE FOR CONTINUITY OF CARE. PATIENT IS AWAKE AND STABLE. A&OX4. SPANISHING SPEAKING ONLY. VERBALLY RESPONSIVE AND ABLE TO COMMUNICATE NEEDS. ON ROOM AIR WITH NO APPARENT S/SX OF ACUTE DISTRESS. RESPIRATIONS EVEN AND UNLABORED WITH NO APPARENT S/SX OF ACUTE DISTRESS. AMBULATORY AND SKIN IS INTACT. CONTINENT OF VOID AND BM. IV SITE NOT PRESENT. PLAN OF CARE AND WHITE COMMUNICATION BOARD UPDATED. ALL SAFETY MEASURES IN PLACE. CALL LIGHT WITHIN REACH. WILL CONTINUE TO MONITOR.
[2022-02-05 20:00] VITALS: BP 111/72
--- NOTE | 2022-02-05 20:00 | NUR ---
REVIEWED PLAN OF CARE WITH AMY PARKER
[2022-02-05] MEDS: ZOLPIDEM 5 MG TAB PO PRN (21:11)
--- NOTE | 2022-02-05 21:20 | NUR ---
ESTABLISHED IV SITE ON LEFT WRIST 24G. TOLERATED WELL. ADVISED PATIENT TO HIT CALL LIGHT WHEN AMBULATING TO THE BR SO PATIENT DOES NOT RISK DISLODGING IV. PATIENT VERBALIZED UNDERSTANDING. PATIENT DENIES PAIN. RESPIRATIONS EVEN AND UNLABORED WITH NO APPARENT S/SX OF ACUTE DISTRESS. WHITE COMMUNICATION BOARD UPDATED. ALL SAFETY MEASURES IN PLACE. CALL LIGHT WITHIN REACH. WILL CONTINUE TO MONITOR.
[2022-02-05] MEDS: CLINDAMYCIN 600 MG in DEXTROSE 5% 50 ML IV SCH (21:48)
--- NOTE | 2022-02-05 23:20 | NUR ---
PATIENT STABLE AND ASLEEP. CHEST IS RISING AND FALLING EVENLY. RESPIRATIONS EVEN AND UNLABORED WITH NO APPARENT S/SX OF ACUTE DISTRESS. WHITE COMMUNICATION BOARD UPDATED. ALL SAFETY MEASURES IN PLACE. CALL LIGHT WITHIN REACH. WILL CONTINUE TO MONITOR.
--- NOTE | 2022-02-06 01:20 | NUR ---
CHANGED PATIENT'S IVF. TOLERATED WELL. DENIES PAIN. RESPIRATIONS EVEN AND UNLABORED WITH NO APPARENT S/SX OF ACUTE DISTRESS. WHITE COMMUNICATION BOARD UPDATED. ALL SAFETY MEASURES IN PLACE. CALL LIGHT WITHIN REACH. WILL CONTINUE TO MONITOR.
[2022-02-06 04:00] VITALS: BP 115/75
[2022-02-06] MEDS: CLINDAMYCIN 600 MG in DEXTROSE 5% 50 ML IV SCH ×3 (04:02→21:54)
[2022-02-06] MEDS: ACETAMINOPHEN 325 MG TAB PO PRN ×2 (04:57→16:38)
--- NOTE | 2022-02-06 05:15 | NUR ---
PATIENT MOVED TO BED 122-A FOR BED ALARM SAFETY. BEDSIDE COMMODE PRESENT. DENIES PAIN. RESPIRATIONS EVEN AND UNLABORED WITH NO APPARENT S/SX OF ACUTE DISTRESS. ALL NEEDS MET. ALL SAFETY MEASURES IN PLACE. CALL LIGHT WITHIN REACH. WILL CONTINUE TO MONITOR.
[2022-02-06 06:23] LABS: ANION GAP 17.9 (8-16); BASOPHILS # (AUTO) 0.2 K/uL (0.00-0.22); BASOPHILS % (AUTO) 0.9 % (0.0-2.0); CARBON DIOXIDE 19.6 mmol/L (21-32); CREATININE 0.9 mg/dL (0.6-1.3); EOSINOPHILS # (AUTO) 0.3 K/uL (0-0.4); EOSINOPHILS % (AUTO) 1.7 % (0.0-4.0); HEMATOCRIT 28.2 % (36-48); HEMOGLOBIN 8.6 g/dL (12.0-16.0); LYMPHOCYTES # (AUTO) 3.9 K/uL (2.5-16.5); LYMPHOCYTES % (AUTO) 20.2 % (20.5-51.1); MEAN CORPUSCULAR HEMOGLOBIN 22 pg (27-31); MEAN CORPUSCULAR HGB CONC 30 g/dL (33-37); MEAN CORPUSCULAR VOLUME 73.4 fL (80-94); MONOCYTES # (AUTO) 3.3 K/uL (0.8-1.0); MONOCYTES % (AUTO) 17.1 % (1.7-9.3); NEUTROPHILS # (AUTO) 11.8 K/uL (1.8-7.7); NEUTROPHILS % (AUTO) 60.1 % (42.2-75.2); PLATELET COUNT (AUTO) 406 K/uL (140-450); POTASSIUM 3.5 mmol/L (3.5-5.1); RED BLOOD CELL COUNT(AUTO) 3.84 MIL/uL (4.20-5.40); RED CELL DISTRIBUTION WIDTH 22.5 % (11.6-13.7); WHITE BLOOD COUNT (AUTO) 19.5 K/uL (4.8-10.8)
--- NOTE | 2022-02-06 07:20 | NUR ---
ENDORSED PATIENT TO RAS PEREIRA FOR CONTINUITY OF CARE. PATIENT IS STABLE.
[2022-02-06] MEDS: PANTOPRAZOLE 40 MG TABEC PO SCH (08:47)
[2022-02-06] MEDS: levoFLOXacin 750 MG TAB PO SCH (08:48)
--- NOTE | 2022-02-06 10:05 | NUR ---
PATIENT HAS BEEN SCREENED AND CATEGORIZED LOW NUTRITION RISK. PATIENT WILL BE SEEN WITHIN 7 DAYS OF ADMISSION. 02/11/[address]
[2022-02-06] MEDS: NACL 0.9% 1,000 ML IV SCH (11:53)
[2022-02-06 16:00] VITALS: BP 115/75
[2022-02-06] MEDS ORDERED: MEX2.5 SQ (18:21)
--- NOTE | 2022-02-06 18:46 | NUR ---
patient family called and stated she has a condition of osteo arthritis and on methotrixate meds. will bring meds later for dosing.
--- NOTE | 2022-02-06 19:20 | NUR ---
RECEIVED ENDORSEMENT FROM RAS PEREIRA FOR CONTINUITY OF CARE. PATIENT IS AWAKE AND STABLE. A&OX4. SPANISHING SPEAKING ONLY. VERBALLY RESPONSIVE AND ABLE TO COMMUNICATE NEEDS. ON ROOM AIR WITH NO APPARENT S/SX OF ACUTE DISTRESS. RESPIRATIONS EVEN AND UNLABORED WITH NO APPARENT S/SX OF ACUTE DISTRESS. AMBULATORY AND SKIN IS INTACT. CONTINENT OF VOID AND BM. IV SITE TO LEFT WRIST 24G PATENT/INTACT WITH NS INFUSING AT 45 ML/HR. FAMILY MEMBER AT BEDSIDE. PLAN OF CARE AND WHITE COMMUNICATION BOARD UPDATED. ALL SAFETY MEASURES IN PLACE. CALL LIGHT WITHIN REACH. WILL CONTINUE TO MONITOR.
[2022-02-06] MEDS ORDERED: METHOTREXATE 100 MG/4 ML VIAL IM ONE (19:35)
--- NOTE | 2022-02-06 20:00 | NUR ---
REVIEWED PLAN OF CARE WITH KANDACE HOYOS LVN. ROSALVA
--- NOTE | 2022-02-06 20:05 | NUR ---
Called Wale Pickens Political Scientist, explained to him that pt has own medication Methotrexate and the RN just put the order, and it verified by after hour pharmacy already, but the hospital pharmacy is closed already. Asked Wale if it is ok for pt to take his own medication for tonight; Wale stated that it is ok to use pt's own medication tonight, and tomorrow morning the RN has to give pt's medication to the pharmacy. Wale will check tomorrow if the pharmacy has that medication, otherwise he will order the medication for the pt. Will let RN know
--- NOTE | 2022-02-06 21:00 | NUR ---
PER ENGINEERING LEADER HENRI PHARMACIST SAGRARIO APPROVED USING FAMILY'S SUPPLY FOR METHOTREXATE. ADMINISTERED ORDERED AND DOCUMENTED ON EMAR. RAS GODOY CO-SIGNED SECOND WITNESS. PER INSTRUCTION, USED VIAL WILL BE SAVED TO BE GIVEN TOMORROW AT PHARMACY. WILL ENDORSE TO DAY SHIFT. PATIENT DENIES PAIN. RESPIRATIONS EVEN AND UNLABORED WITH NO APPARENT S/SX OF ACUTE DISTRESS. WHITE COMMUNICATION BOARD UPDATED. ALL SAFETY MEASURES IN PLACE. CALL LIGHT WITHIN REACH. WILL CONTINUE TO MONITOR.
[2022-02-06] MEDS: ZOLPIDEM 5 MG TAB PO PRN (22:12)
--- NOTE | 2022-02-06 23:15 | NUR ---
CHANGED PATIENT'S IVF. TOLERATED WELL. PATIENT IS STABLE AND ASLEEP. CHEST IS RISING AND FALLING EVENLY WITH NO APPARENT S/SX OF ACUTE DISTRESS. WHITE COMMUNICATION BOARD UPDATED. ALL SAFETY MEASURES IN PLACE. CALL LIGHT WITHIN REACH. WILL CONTINUE TO MONITOR.
--- NOTE | 2022-02-07 02:30 | NUR ---
URINE SAMPLE OBTAINED FOR URINE CX. PATIENT HAS T OF 101.1. MEDICATED WITH TYLENOL PER PRN. TOLERATED WELL. WILL RE-ASSESS AFTER 1 HOUR.
[2022-02-07] MEDS: ACETAMINOPHEN 325 MG TAB PO PRN ×2 (02:34→12:08)
--- NOTE | 2022-02-07 03:30 | NUR ---
PATIENT'S TEMPERATURE REDUCED TO 98.3 F. PATIENT STABLE AND ASLEEP. CHEST IS RISING AND FALLING EVENLY. RESPIRATIONS EVEN AND UNLABORED WITH NO APPARENT S/SX OF ACUTE DISTRESS. WHITE COMMUNICATION BOARD UPDATED. ALL SAFETY MEASURES IN PLACE. CALL LIGHT WITHIN REACH. WILL CONTINUE TO MONITOR.
[2022-02-07 04:00] VITALS: BP 109/65
[2022-02-07] MEDS: CLINDAMYCIN 600 MG in DEXTROSE 5% 50 ML IV SCH ×3 (04:01→20:40)
--- NOTE | 2022-02-07 05:25 | NUR ---
PATIENT IS STABLE AND ASLEEP. CHEST IS RISING AND FALLING EVENLY. RESPIRATIONS EVEN AND UNLABORED WITH NO APPARENT S/SX OF ACUTE DISTRESS. ALL NEEDS MET. WHITE COMMUNICATION BOARD UPDATED. ALL SAFETY MEASURES IN PLACE. CALL LIGHT WITHIN REACH. WILL CONTINUE TO MONITOR.
[2022-02-07 05:28] LABS: BASOPHILS # (AUTO) 0.2 K/uL (0.00-0.22); BASOPHILS % (AUTO) 1.3 % (0.0-2.0); EOSINOPHILS # (AUTO) 0.5 K/uL (0-0.4); EOSINOPHILS % (AUTO) 2.8 % (0.0-4.0); HEMATOCRIT 24.1 % (36-48); HEMOGLOBIN 7.5 g/dL (12.0-16.0); LYMPHOCYTES # (AUTO) 1.4 K/uL (2.5-16.5); LYMPHOCYTES % (AUTO) 8.9 % (20.5-51.1); MEAN CORPUSCULAR HEMOGLOBIN 23 pg (27-31); MEAN CORPUSCULAR HGB CONC 31 g/dL (33-37); MEAN CORPUSCULAR VOLUME 72.5 fL (80-94); MONOCYTES # (AUTO) 2.9 K/uL (0.8-1.0); NEUTROPHILS # (AUTO) 11.3 K/uL (1.8-7.7); PLATELET COUNT (AUTO) 281 K/uL (140-450); RED BLOOD CELL COUNT(AUTO) 3.32 MIL/uL (4.20-5.40); RED CELL DISTRIBUTION WIDTH 22.5 % (11.6-13.7); WHITE BLOOD COUNT (AUTO) 16.3 K/uL (4.8-10.8)
[2022-02-07 05:52] LABS: ANION GAP 13.6 (8-16); CARBON DIOXIDE 23.6 mmol/L (21-32); CREATININE 0.7 mg/dL (0.6-1.3); POTASSIUM 3.2 mmol/L (3.5-5.1)
--- NOTE | 2022-02-07 07:20 | NUR ---
ENDORSED PATIENT TO RAS MARCOS FOR CONTINUITY OF CARE. ENDORSED EMPTY VIAL OF METHOTREXATE TO RAS MARCOS TO TURN IN TO PHARMACY. RAS MARCOS VERBALIZED UNDERSTANDING. PATIENT IS STABLE.
[2022-02-07] MEDS: levoFLOXacin 750 MG TAB PO SCH (08:26)
[2022-02-07] MEDS: PANTOPRAZOLE 40 MG TABEC PO SCH (08:26)
[2022-02-07] MEDS ORDERED: guaiFENesin DM 200/20 MG-10 ML 10 ML UDC PO PRN (08:50)
[2022-02-07] MEDS: NACL 0.9% 1,000 ML IV SCH (10:07)
--- NOTE | 2022-02-07 12:30 | NUR ---
PHYSICAL THERAPY CO-SIGN The Physical Therapy Progress Notes documented by Parts Counter Representative have been reviewed. Reviewed/Co-Signed by: Suzan Moore Documentation Done by: EVON TEE PTA Addendum: 02/07/22 at 1230 by Suzan Moore PT Amended: Links added.
--- NOTE | 2022-02-07 14:00 | NUR ---
pt is given Tylenol for temp 103 F and now temp is 98.8 , PT RESTING COMFORTABLY CONTINUED TO ASSES FOR ANY CHANGE.[id number]
[2022-02-07 17:24] VITALS: BP 96/52
--- NOTE | 2022-02-07 19:30 | NUR ---
RECEIVED PT FROM AM NURSE FOR CONYINUITY OF CARE.PT IS STABLE
--- NOTE | 2022-02-07 21:30 | NUR ---
ALL MEDICATIONS GIVEN,NO ADVERSE REACTIONS NOTED
--- NOTE | 2022-02-08 01:00 | NUR ---
PATIENT ASLEEP,RESPIRATIONS EVEN AND UNLABORED ,NO DISTRESS NOTED
--- NOTE | 2022-02-08 03:00 | NUR ---
SLEEPING COMFORTABLY,NO SOB NOTED
[2022-02-08 04:00] VITALS: BP 117/57
[2022-02-08 04:53] LABS: BASOPHILS # (AUTO) 0.1 K/uL (0.00-0.22); BASOPHILS % (AUTO) 0.9 % (0.0-2.0); EOSINOPHILS # (AUTO) 0.2 K/uL (0-0.4); EOSINOPHILS % (AUTO) 1.4 % (0.0-4.0); HEMATOCRIT 23.2 % (36-48); HEMOGLOBIN 7.1 g/dL (12.0-16.0); LYMPHOCYTES # (AUTO) 1.4 K/uL (2.5-16.5); LYMPHOCYTES % (AUTO) 11.9 % (20.5-51.1); MEAN CORPUSCULAR HEMOGLOBIN 22 pg (27-31); MEAN CORPUSCULAR HGB CONC 30 g/dL (33-37); MEAN CORPUSCULAR VOLUME 72.2 fL (80-94); MONOCYTES # (AUTO) 0.7 K/uL (0.8-1.0); NEUTROPHILS # (AUTO) 9.7 K/uL (1.8-7.7); NEUTROPHILS % (AUTO) 79.8 % (42.2-75.2); PLATELET COUNT (AUTO) 323 K/uL (140-450); RED BLOOD CELL COUNT(AUTO) 3.21 MIL/uL (4.20-5.40); RED CELL DISTRIBUTION WIDTH 22.8 % (11.6-13.7); WHITE BLOOD COUNT (AUTO) 12.1 K/uL (4.8-10.8)
[2022-02-08] MEDS: CLINDAMYCIN 600 MG in DEXTROSE 5% 50 ML IV SCH (05:25)
[2022-02-08 05:26] LABS: ANION GAP 11.9 (8-16); CREATININE 0.7 mg/dL (0.6-1.3); POTASSIUM 3.9 mmol/L (3.5-5.1)
--- NOTE | 2022-02-08 06:00 | NUR ---
PATIENT ASLEEP THROUGHOUT THE SHIFT,NO COUGHING AND NO SOB NOTED
--- NOTE | 2022-02-08 06:25 | NUR ---
TEXTED DR CERVANTES REGARDING PATIENT'S HGB LEVEL OF 7.1, SAID TO REPEAT TEST AT 11 AM. ORDER SENT TO LABS.
--- NOTE | 2022-02-08 07:27 | NUR ---
RECEIVED REPORT FROM THE NIGHT NURSE, PATIENT AT THE BED SITTING, CONNECTED IV AND PT ASSISTED TO BED.[id number]
[2022-02-08] MEDS: NACL 0.9% 1,000 ML IV SCH (08:21)
[2022-02-08] MEDS ORDERED: PANT40EC PO (09:05)
[2022-02-08] MEDS ORDERED: CLIN300C2 PO (09:05)
[2022-02-08] MEDS ORDERED: LEVO750T51 PO (09:05)
[2022-02-08] MEDS ORDERED: ONDA-188 PO (09:06)
--- NOTE | 2022-02-08 09:17 | NUR ---
PHYSICAL THERAPY CO-SIGN The Physical Therapy Progress Notes documented by Staying Machine Operator have been reviewed. Reviewed/Co-Signed by: Suzan Moore Documentation Done by:EVON TEE PTA Addendum: 02/08/22 at 0918 by Suzan Moore PT Amended: Links added.
[2022-02-08] MEDS: levoFLOXacin 750 MG TAB PO SCH (09:35)
[2022-02-08] MEDS: PANTOPRAZOLE 40 MG TABEC PO SCH (09:35)
[2022-02-08 09:36] VITALS: BP 95/54
--- NOTE | 2022-02-08 11:08 | NUR ---
PATIENT DISCHARGED HOME, DISCHARGE INSTRUCTION IS GIVEN, IV AND HAND BAND OUT AND PT IS ESCORTED OUT ON W\C WITHOUT ANY DISCOMFORT. [id number]
== END 2022-02-08 10:50 | disposition home or self-care (01) | DRG 720 ==
LOC: MED 10:44 → MTU 13:11
PROVIDERS: ADMIT Family Medicine; ATTEND Family Medicine
DX: A41.9 Sepsis, unspecified organism (principal); J69.0 Pneumonitis due to inhalation of food and vomit; D63.8 Anemia in other chronic diseases classified elsewhere; E87.1 Hypo-osmolality and hyponatremia; M06.1 Adult-onset Still's disease; E11.9 Type 2 diabetes mellitus without complications; U09.9 Post COVID-19 condition, unspecified; K57.90 Diverticulosis of intestine, part unspecified, without perforation or abscess without bleeding; Z20.822 Contact with and (suspected) exposure to COVID-19; I10 Essential (primary) hypertension; N39.0 Urinary tract infection, site not specified; Z79.52 Long term (current) use of systemic steroids; Z90.49 Acquired absence of other specified parts of digestive tract; Z79.899 Other long term (current) drug therapy
CPT/HCPCS: 36415; 71045; 71250; 76700; 80048; 81001; 82150; 83036; 83605; 83690; 83735; 83880; 84100; 84436; 84439; 84443; 84479; 84484; 85025; 85610; 85730; 86886; 86900; 86901; 86920; 87040; 87070; 87081; 87086; 87205; 93005; 96365; 97110; 97112; 97116; 97163-GP; 97530; 99285; J0692; J2405; J3490; J7030; J7060; J9260; Q0092

== ENCOUNTER 2023-05-22 17:52 | Emergency (ER) | payer MEDICAID ==
[~2023-05-22] VITALS: Ht 149.9 cm; Wt 65.8 kg
[~2023-05-22 17:52] MED LIST changes: -ATRO1TAB PO; +CLIN300C2 PO; +FOLI1TAB90 PO; -IBUP-2213 PO; +LEVO750T75 PO; +MEX2.5 SQ; -OMEP20EC11 PO; -ONDA8TAB87 PO; +PANT40EC PO; -POTA10TA70 PO; -PRED20TA5 PO; -TRAM50TA1 PO; +[UNRECOGNIZED DRUG - CODE] SQ
[2023-05-22 18:08] VITALS: BP 127/72; PULSE 106; RESP 20; TEMP 100.1; O2SAT 96
[2023-05-22] MEDS ORDERED: KETOROLAC 60 MG/2 ML VIAL IM ONE ×2 (18:20→18:55)
[2023-05-22 18:55] LABS: FLU A ANTIGEN negative (NEGATIVE); FLU B ANTIGEN NEGATIVE (NEGATIVE)
[2023-05-22] MEDS ORDERED: ONDANSETRON 4 MG ODT PO ONE (18:55)
[2023-05-22] MEDS ORDERED: diphenhydrAMINE 50 MG CAP PO ONE (18:55)
[2023-05-22] MEDS ORDERED: ONDA8TAB87 PO (19:08)
[2023-05-22] MEDS ORDERED: IBUP-2213 PO (19:08)
[2023-05-22] MEDS ORDERED: PRED20TA5 PO (19:08)
[2023-05-22] MEDS ORDERED: CIPR500T4 PO (19:08)
[2023-05-22] MEDS ORDERED: DIPH25TA53 PO (19:08)
[2023-05-22 19:45] VITALS: BP 101/52; PULSE 85; RESP 16; O2SAT 94
== END 2023-05-22 18:45 | disposition home or self-care (01) ==
LOC: MED 17:52
DX: N39.0 Urinary tract infection, site not specified (principal); Z20.822 Contact with and (suspected) exposure to COVID-19; R21 Rash and other nonspecific skin eruption; Z79.899 Other long term (current) drug therapy
CPT/HCPCS: 87086; 87426; 87804; 96372; 99283; J1885; Q0162; Q0163

== ENCOUNTER 2023-06-08 08:03 | Inpatient (IN) | payer MEDICAID ==
[~2023-06-08] VITALS: Ht 157.5 cm; Wt 72.6 kg
[~2023-06-08 08:03] MED LIST changes: +CIPR500T4 PO; +DIPH25TA53 PO; +IBUP-2213 PO; +ONDA8TAB87 PO; +PRED20TA5 PO
[2023-06-08 08:10] VITALS: BP 123/65; PULSE 91; RESP 18; TEMP 97.9; O2SAT 95
[2023-06-08] MEDS ORDERED: NACL 0.9% 1,000 ML IV ONE ×2 (09:00→12:50)
[2023-06-08] MEDS ORDERED: ONDANSETRON 4 MG/2 ML VIAL IVP ONE (09:00)
[2023-06-08] MEDS ORDERED: diphenhydrAMINE 50 MG/ML VIAL IVP ONE (09:00)
[2023-06-08] MEDS ORDERED: KETOROLAC 30 MG/ML VIAL IVP ONE (09:00)
[2023-06-08] MEDS ORDERED: FAMOTIDINE 20 MG/2 ML VIAL IVP ONE (09:00)
[2023-06-08 09:14] LABS: BASOPHILS # (AUTO) 0.1 K/uL (0.00-0.22); BASOPHILS % (AUTO) 0.7 % (0.0-2.0); EOSINOPHILS # (AUTO) 0.7 K/uL (0-0.4); HEMATOCRIT 35.2 % (36-48); HEMOGLOBIN 11.4 g/dL (12.0-16.0); LYMPHOCYTES # (AUTO) 1.5 K/uL (2.5-16.5); LYMPHOCYTES % (AUTO) 8.7 % (20.5-51.1); MEAN CORPUSCULAR HEMOGLOBIN 26 pg (27-31); MEAN CORPUSCULAR HGB CONC 32 g/dL (33-37); MEAN CORPUSCULAR VOLUME 80.4 fL (80-94); MONOCYTES # (AUTO) 2.2 K/uL (0.8-1.0); MONOCYTES % (AUTO) 12.9 % (1.7-9.3); NEUTROPHILS # (AUTO) 12.5 K/uL (1.8-7.7); NEUTROPHILS % (AUTO) 73.7 % (42.2-75.2); PLATELET COUNT (AUTO) 277 K/uL (140-450); RED BLOOD CELL COUNT(AUTO) 4.38 MIL/uL (4.20-5.40); RED CELL DISTRIBUTION WIDTH 15.1 % (11.6-13.7)
[2023-06-08 09:31] LABS: LACTIC ACID 1.3 mmol/L (0.4-2.0)
[2023-06-08 09:40] LABS: ALBUMIN 2.8 g/dL (3.4-5.0); ANION GAP 13.9 (8-16); CALCIUM 7.6 mg/dL (8.5-10.1); CARBON DIOXIDE 25.3 mmol/L (21-32); POTASSIUM 3.2 mmol/L (3.5-5.1); TOTAL BILIRUBIN 0.7 mg/dL (0.0-1.0); TOTAL PROTEIN, SERUM 6.7 g/dL (6.4-8.2)
[2023-06-08 09:57] LABS: APPEARANCE,URINE CLEAR (CLEAR); BILIRUBIN,URINE NEGATIVE (NEGATIVE); BLOOD, URINE NEGATIVE (NEGATIVE); COLOR,URINE YELLOW (YELLOW); LEUKOCYTE ESTERASE ,URINE NEGATIVE (NEGATIVE); NITRITE, URINE NEGATIVE (NEGATIVE); PROTEIN,URINE NEGATIVE (NEGATIVE); UGLUCOSE NEGATIVE (NEGATIVE); UROBILINOGEN,URINE 0.2 EU/dL (0.2 - 1)
[2023-06-08] MEDS ORDERED: AZITHROMYCIN 250 MG TAB PO ONE (10:50)
[2023-06-08] MEDS ORDERED: AZITHROMYCIN 250 MG TAB ONE (12:31)
[2023-06-08] MEDS ORDERED: cefTRIAXone 1,000 MG VIAL ONE (13:09)
[2023-06-08 17:04] VITALS: RESP 19; O2SAT 98
[2023-06-08] MEDS ORDERED: POTASSIUM CHLORIDE 10 MEQ TABER PO ONE (17:57)
[2023-06-08] MEDS: POTASSIUM CHLORIDE 10 MEQ TABER PO SCH (19:45)
[2023-06-08 20:00] VITALS: BP 119/59; PULSE 75; RESP 18; RESP 19; TEMP 100.9; O2SAT 98; O2SAT 99
[2023-06-08] MEDS: ACETAMINOPHEN 325 MG TAB PO PRN (22:00)
[2023-06-09] MEDS: ACETAMINOPHEN 325 MG TAB PO PRN ×2 (04:11→14:22)
[2023-06-09 05:32] VITALS: BP 110/57; PULSE 90; RESP 20; TEMP 101.3; O2SAT 95
[2023-06-09] MEDS ORDERED: MAG SULF 2000 MG/WATER PREMIX 50 ML IV PRN (07:00)
[2023-06-09 07:13] LABS: BASOPHILS # (AUTO) 0.1 K/uL (0.00-0.22); BASOPHILS % (AUTO) 0.6 % (0.0-2.0); EOSINOPHILS # (AUTO) 0.6 K/uL (0-0.4); EOSINOPHILS % (AUTO) 3.9 % (0.0-4.0); HEMATOCRIT 34.4 % (36-48); HEMOGLOBIN 11.4 g/dL (12.0-16.0); MEAN CORPUSCULAR HEMOGLOBIN 27 pg (27-31); MEAN CORPUSCULAR HGB CONC 33 g/dL (33-37); MEAN CORPUSCULAR VOLUME 80.3 fL (80-94); MONOCYTES # (AUTO) 1.7 K/uL (0.8-1.0); NEUTROPHILS # (AUTO) 11.9 K/uL (1.8-7.7); PLATELET COUNT (AUTO) 243 K/uL (140-450); RED BLOOD CELL COUNT(AUTO) 4.28 MIL/uL (4.20-5.40); RED CELL DISTRIBUTION WIDTH 14.9 % (11.6-13.7); WHITE BLOOD COUNT (AUTO) 15.4 K/uL (4.8-10.8)
[2023-06-09 07:23] LABS: ANION GAP 13.3 (8-16); CALCIUM 7.4 mg/dL (8.5-10.1); CARBON DIOXIDE 24.2 mmol/L (21-32); CREATININE 0.8 mg/dL (0.6-1.3); POTASSIUM 3.5 mmol/L (3.5-5.1)
[2023-06-09 08:00] VITALS: BP 109/60; PULSE 84; RESP 16; TEMP 99.6; O2SAT 97
[2023-06-09 08:11] LABS: NEUTROPHILS % (AUTO) 77.5 % (42.2-75.2)
[2023-06-09 08:12] LABS: LYMPHOCYTES % (AUTO) 6.7 % (20.5-51.1); MONOCYTES % (AUTO) 11.3 % (1.7-9.3)
[2023-06-09] MEDS: POTASSIUM CHLORIDE 10 MEQ TABER PO SCH (08:47)
[2023-06-09] MEDS: AZITHROMYCIN 500 MG in DEXTROSE 5% 250 ML IV SCH (11:50)
[2023-06-09 16:00] VITALS: BP 108/59; PULSE 94; RESP 18; TEMP 97.4; O2SAT 94
[2023-06-09 20:00] VITALS: PULSE 84; RESP 17; O2SAT 96
[2023-06-09] MEDS ORDERED: POTASSIUM CHLORIDE 10 MEQ TABER PO PRN (21:35)
[2023-06-09] MEDS ORDERED: DOCUSATE SODIUM 100 MG GELCAP PO PRN (21:35)
[2023-06-09] MEDS ORDERED: ACETAMINOPHEN 325 MG TAB PO PRN (21:35)
[2023-06-09] MEDS: NACL 0.9% 1,000 ML IV SCH (23:01)
[2023-06-10] VITALS: BP 104/48; PULSE 113; RESP 18; TEMP 98.6; O2SAT 96
[2023-06-10 06:31] LABS: BASOPHILS # (AUTO) 0.1 K/uL (0.00-0.22); BASOPHILS % (AUTO) 0.5 % (0.0-2.0); EOSINOPHILS # (AUTO) 0.2 K/uL (0-0.4); EOSINOPHILS % (AUTO) 1.1 % (0.0-4.0); HEMATOCRIT 33.2 % (36-48); HEMOGLOBIN 10.7 g/dL (12.0-16.0); LYMPHOCYTES # (AUTO) 1.2 K/uL (2.5-16.5); LYMPHOCYTES % (AUTO) 5.8 % (20.5-51.1); MEAN CORPUSCULAR HEMOGLOBIN 26 pg (27-31); MEAN CORPUSCULAR HGB CONC 32 g/dL (33-37); MEAN CORPUSCULAR VOLUME 80.5 fL (80-94); MONOCYTES # (AUTO) 1.5 K/uL (0.8-1.0); MONOCYTES % (AUTO) 7.1 % (1.7-9.3); NEUTROPHILS # (AUTO) 17.5 K/uL (1.8-7.7); NEUTROPHILS % (AUTO) 85.5 % (42.2-75.2); PLATELET COUNT (AUTO) 243 K/uL (140-450); RED BLOOD CELL COUNT(AUTO) 4.12 MIL/uL (4.20-5.40); RED CELL DISTRIBUTION WIDTH 15.2 % (11.6-13.7); WHITE BLOOD COUNT (AUTO) 20.4 K/uL (4.8-10.8)
[2023-06-10 06:43] LABS: ANION GAP 13.9 (8-16); CALCIUM 7.1 mg/dL (8.5-10.1); CARBON DIOXIDE 22.8 mmol/L (21-32); CREATININE 0.8 mg/dL (0.6-1.3); POTASSIUM 3.7 mmol/L (3.5-5.1)
[2023-06-10] MEDS: NACL 0.9% 1,000 ML IV SCH ×2 (07:35→15:36)
[2023-06-10 08:00] VITALS: BP 101/47; PULSE 96; RESP 18; TEMP 99.5; O2SAT 96
[2023-06-10] MEDS: POTASSIUM CHLORIDE 10 MEQ TABER PO SCH (09:19)
[2023-06-10] MEDS: ACETAMINOPHEN 325 MG TAB PO PRN (09:24)
[2023-06-10 09:32] VITALS: PULSE 96; RESP 18; O2SAT 96
[2023-06-10] MEDS: AZITHROMYCIN 500 MG in DEXTROSE 5% 250 ML IV SCH (10:04)
[2023-06-10] MEDS ORDERED: ONDANSETRON 4 MG/2 ML VIAL IVP PRN (11:00)
[2023-06-10] MEDS: PIPERACILLIN/TAZOBACTAM 3.375 GM in DEXTROSE 5% 50 ML IV SCH ×2 (13:25→20:25)
[2023-06-10 16:00] VITALS: BP 114/73; PULSE 88; RESP 18; TEMP 98.1; O2SAT 96
[2023-06-10 20:00] VITALS: PULSE 69; RESP 19; O2SAT 96
[2023-06-11] VITALS: BP 120/53; PULSE 69; RESP 19; TEMP 98.9; O2SAT 96
[2023-06-11] MEDS: NACL 0.9% 1,000 ML IV SCH ×3 (02:43→23:35)
[2023-06-11] MEDS: PIPERACILLIN/TAZOBACTAM 3.375 GM in DEXTROSE 5% 50 ML IV SCH ×2 (05:32→12:43)
[2023-06-11] MEDS: ACETAMINOPHEN 325 MG TAB PO PRN ×2 (06:12→16:52)
[2023-06-11 06:29] LABS: BASOPHILS # (AUTO) 0.1 K/uL (0.00-0.22); BASOPHILS % (AUTO) 0.4 % (0.0-2.0); EOSINOPHILS # (AUTO) 0.4 K/uL (0-0.4); HEMATOCRIT 31.6 % (36-48); HEMOGLOBIN 10.3 g/dL (12.0-16.0); LYMPHOCYTES # (AUTO) 0.9 K/uL (2.5-16.5); LYMPHOCYTES % (AUTO) 4.5 % (20.5-51.1); MEAN CORPUSCULAR HEMOGLOBIN 26 pg (27-31); MEAN CORPUSCULAR HGB CONC 33 g/dL (33-37); MONOCYTES # (AUTO) 1.2 K/uL (0.8-1.0); MONOCYTES % (AUTO) 5.9 % (1.7-9.3); NEUTROPHILS # (AUTO) 18.2 K/uL (1.8-7.7); NEUTROPHILS % (AUTO) 87.2 % (42.2-75.2); PLATELET COUNT (AUTO) 257 K/uL (140-450); RED BLOOD CELL COUNT(AUTO) 3.95 MIL/uL (4.20-5.40); RED CELL DISTRIBUTION WIDTH 15.4 % (11.6-13.7); WHITE BLOOD COUNT (AUTO) 20.8 K/uL (4.8-10.8)
[2023-06-11 06:30] LABS: ANION GAP 13.3 (8-16); CALCIUM 7.4 mg/dL (8.5-10.1); CARBON DIOXIDE 21.4 mmol/L (21-32); CREATININE 0.8 mg/dL (0.6-1.3); POTASSIUM 3.7 mmol/L (3.5-5.1)
[2023-06-11 08:00] VITALS: BP 102/56; PULSE 102; RESP 19; TEMP 98.5; O2SAT 98
[2023-06-11] MEDS: AZITHROMYCIN 500 MG in DEXTROSE 5% 250 ML IV SCH (08:45)
[2023-06-11 16:00] VITALS: BP 108/56; PULSE 105; RESP 19; TEMP 103; O2SAT 98
[2023-06-11 16:30] VITALS: BP 108/56; PULSE 105; RESP 19; TEMP 103; O2SAT 98
[2023-06-11 20:00] VITALS: BP 110/60; PULSE 101; RESP 18; RESP 19; TEMP 99; O2SAT 98
[2023-06-12] MEDS ORDERED: VANCOMYCIN 500 MG VIAL PO SCH
[2023-06-12] MEDS ORDERED: WATER STERILE 20 ML MC ONE (00:15)
[2023-06-12] MEDS: VANCOMYCIN 500 MG VIAL PO SCH ×2 (00:18→05:25)
[2023-06-12 04:00] VITALS: BP 111/53; PULSE 110; RESP 18; TEMP 99.6; O2SAT 96
[2023-06-12] MEDS: NACL 0.9% 1,000 ML IV SCH ×2 (05:24→18:51)
[2023-06-12] MEDS: VANCOMYCIN HCL 25 MG/ML SOLN PO SCH ×5 (06:00→23:27)
[2023-06-12 06:24] LABS: ANION GAP 14.3 (8-16); CALCIUM 7.6 mg/dL (8.5-10.1); CARBON DIOXIDE 22.5 mmol/L (21-32); CREATININE 0.8 mg/dL (0.6-1.3); POTASSIUM 3.8 mmol/L (3.5-5.1)
[2023-06-12 06:28] LABS: BASOPHILS # (AUTO) 0.1 K/uL (0.00-0.22); BASOPHILS % (AUTO) 0.4 % (0.0-2.0); EOSINOPHILS # (AUTO) 0.7 K/uL (0-0.4); EOSINOPHILS % (AUTO) 3.3 % (0.0-4.0); HEMATOCRIT 31.5 % (36-48); HEMOGLOBIN 10.3 g/dL (12.0-16.0); LYMPHOCYTES # (AUTO) 0.8 K/uL (2.5-16.5); MEAN CORPUSCULAR HEMOGLOBIN 26 pg (27-31); MEAN CORPUSCULAR HGB CONC 33 g/dL (33-37); MEAN CORPUSCULAR VOLUME 79.7 fL (80-94); MONOCYTES # (AUTO) 1.3 K/uL (0.8-1.0); MONOCYTES % (AUTO) 6.1 % (1.7-9.3); NEUTROPHILS % (AUTO) 86.2 % (42.2-75.2); PLATELET COUNT (AUTO) 281 K/uL (140-450); RED BLOOD CELL COUNT(AUTO) 3.95 MIL/uL (4.20-5.40); RED CELL DISTRIBUTION WIDTH 15.2 % (11.6-13.7); WHITE BLOOD COUNT (AUTO) 20.8 K/uL (4.8-10.8)
[2023-06-12 08:00] VITALS: BP 100/54; PULSE 101; RESP 18; TEMP 100; O2SAT 95
[2023-06-12] MEDS: predniSONE 20 MG TAB PO SCH (08:26)
[2023-06-12] MEDS ORDERED: PHARMACY COMMENTS MC SCH (09:00)
[2023-06-12 16:00] VITALS: BP 100/52; PULSE 70; RESP 18; TEMP 97.7; O2SAT 100
[2023-06-12 20:00] VITALS: BP 106/59; PULSE 88; RESP 18; TEMP 97.9; O2SAT 93
[2023-06-13 04:00] VITALS: BP 95/53; PULSE 82; RESP 18; TEMP 97.1; O2SAT 95
[2023-06-13] MEDS: VANCOMYCIN HCL 25 MG/ML SOLN PO SCH ×3 (05:06→18:00)
[2023-06-13] MEDS: NACL 0.9% 1,000 ML IV SCH ×2 (05:07→15:44)
[2023-06-13 06:22] LABS: HEMATOCRIT 31.4 % (36-48); HEMOGLOBIN 10.1 g/dL (12.0-16.0); MEAN CORPUSCULAR HEMOGLOBIN 26 pg (27-31); MEAN CORPUSCULAR HGB CONC 32 g/dL (33-37); MEAN CORPUSCULAR VOLUME 81.2 fL (80-94); PLATELET COUNT (AUTO) 314 K/uL (140-450); RED BLOOD CELL COUNT(AUTO) 3.86 MIL/uL (4.20-5.40); RED CELL DISTRIBUTION WIDTH 15.6 % (11.6-13.7)
[2023-06-13 06:25] LABS: WHITE BLOOD COUNT (AUTO) 30.2 K/uL (4.8-10.8)
[2023-06-13 06:29] LABS: ANION GAP 12.9 (8-16); CALCIUM 7.8 mg/dL (8.5-10.1); CREATININE 0.8 mg/dL (0.6-1.3)
[2023-06-13 06:39] LABS: POTASSIUM 2.9 mmol/L (3.5-5.1)
[2023-06-13 07:29] LABS: BASOPHILS % (MANUAL) 0 % (0-2); BLASTS, MANUAL % 0 % (0-0); EOSINOPHILS % (MANUAL) 4 % (0-4); LYMPHOCYTES % (MANUAL) 2 % (20-46); METAMYELOCYTES % 0 % (0-0); MONOCYTES % (MANUAL) 1 % (5-12); MYELOCYTES % 0 % (0-0); OTHER CELLS,MANUAL % 0 (0-0); PROMYELOCYTES % 0 % (0-0)
[2023-06-13 08:00] VITALS: PULSE 85; RESP 18; TEMP 97.6; O2SAT 95
[2023-06-13] MEDS: predniSONE 20 MG TAB PO SCH (09:11)
[2023-06-13] MEDS ORDERED: MAG SULF 2000 MG/WATER PREMIX 50 ML IV PRN (14:00)
[2023-06-13] MEDS ORDERED: POTASSIUM CHLORIDE 10 MEQ TABER PO PRN (14:00)
[2023-06-13 16:00] VITALS: BP 111/61; PULSE 87; RESP 18; TEMP 98.2; O2SAT 95
[2023-06-13 20:00] VITALS: PULSE 88; RESP 18; TEMP 99.4; O2SAT 96
[2023-06-14] MEDS: NACL 0.9% 1,000 ML IV SCH ×2 (01:42→11:35)
[2023-06-14] MEDS: VANCOMYCIN HCL 25 MG/ML SOLN PO SCH ×3 (01:46→13:00)
[2023-06-14 04:00] VITALS: BP 119/61; PULSE 72; RESP 17; TEMP 98; O2SAT 94
[2023-06-14 06:17] LABS: BASOPHILS % (AUTO) 0.1 % (0.0-2.0); EOSINOPHILS # (AUTO) 0.7 K/uL (0-0.4); EOSINOPHILS % (AUTO) 3.2 % (0.0-4.0); HEMATOCRIT 30.4 % (36-48); HEMOGLOBIN 9.8 g/dL (12.0-16.0); LYMPHOCYTES % (AUTO) 4.3 % (20.5-51.1); MEAN CORPUSCULAR HEMOGLOBIN 26 pg (27-31); MEAN CORPUSCULAR HGB CONC 32 g/dL (33-37); MEAN CORPUSCULAR VOLUME 79.8 fL (80-94); MONOCYTES # (AUTO) 1.4 K/uL (0.8-1.0); MONOCYTES % (AUTO) 6.4 % (1.7-9.3); NEUTROPHILS # (AUTO) 19.1 K/uL (1.8-7.7); PLATELET COUNT (AUTO) 354 K/uL (140-450); RED CELL DISTRIBUTION WIDTH 15.6 % (11.6-13.7); WHITE BLOOD COUNT (AUTO) 22.2 K/uL (4.8-10.8)
[2023-06-14 06:41] LABS: MAGNESIUM 2.1 mg/dL (1.8-2.4); PHOSPHORUS 3.7 mg/dL (2.5-4.9)
[2023-06-14 06:47] LABS: ANION GAP 14.3 (8-16); CALCIUM 7.8 mg/dL (8.5-10.1); CARBON DIOXIDE 22.9 mmol/L (21-32); CREATININE 0.7 mg/dL (0.6-1.3); POTASSIUM 3.2 mmol/L (3.5-5.1)
[2023-06-14 08:00] VITALS: TEMP 97.9
[2023-06-14 08:28] VITALS: PULSE 82; RESP 20; O2SAT 100
[2023-06-14] MEDS: predniSONE 20 MG TAB PO SCH (09:38)
[2023-06-14] MEDS ORDERED: PANT40EC PO (11:34)
[2023-06-14] MEDS ORDERED: VANC125C5 PO (11:34)
[2023-06-14 13:44] VITALS: BP 122/66; PULSE 82; RESP 18; TEMP 97.9
== END 2023-06-14 15:50 | disposition home or self-care (01) | DRG 720 ==
LOC: MED 08:03 → MTU 16:29
PROVIDERS: ADMIT Family Medicine; ATTEND Family Medicine
DX: A41.9 Sepsis, unspecified organism (principal); J18.9 Pneumonia, unspecified organism; E44.1 Mild protein-calorie malnutrition; M06.1 Adult-onset Still's disease; D63.8 Anemia in other chronic diseases classified elsewhere; E87.6 Hypokalemia; M06.9 Rheumatoid arthritis, unspecified; I10 Essential (primary) hypertension; D72.829 Elevated white blood cell count, unspecified; Z20.822 Contact with and (suspected) exposure to COVID-19; K21.9 Gastro-esophageal reflux disease without esophagitis; E66.9 Obesity, unspecified; Z68.29 Body mass index [BMI] 29.0-29.9, adult; Z90.49 Acquired absence of other specified parts of digestive tract; Z79.899 Other long term (current) drug therapy
CPT/HCPCS: 36415; 71045; 80048; 80053; 81003; 82728; 83036; 83605; 83690; 83735; 84100; 85025; 86140; 87040; 87081; 87086; 96361; 96365; 96375; 99285; J0456; J0696; J1200; J1644; J1885; J2405; J2543; J3370; J3490; J7060; J7512; Q0163

== ENCOUNTER 2023-06-18 18:34 | Inpatient (IN) | payer MEDICAID ==
[~2023-06-18] VITALS: Ht 149.9 cm; Wt 62.6 kg
[~2023-06-18 18:34] MED LIST changes: -CIPR500T4 PO; -CLIN300C2 PO; -LEVO750T75 PO; -MEX2.5 SQ; -PRED10TA5 PO; -PRED20TA5 PO; +VANC125C5 PO
[2023-06-18 19:04] VITALS: BP 94/61; PULSE 100; RESP 20; TEMP 97.7; O2SAT 97
[2023-06-18] MEDS ORDERED: NACL 0.9% 1,000 ML IV SCH (20:20)
[2023-06-18 20:49] LABS: HEMATOCRIT 35.6 % (36-48); HEMOGLOBIN 11.5 g/dL (12.0-16.0); MEAN CORPUSCULAR HEMOGLOBIN 26 pg (27-31); MEAN CORPUSCULAR HGB CONC 32 g/dL (33-37); MEAN CORPUSCULAR VOLUME 78.9 fL (80-94); PLATELET COUNT (AUTO) 335 K/uL (140-450); RED BLOOD CELL COUNT(AUTO) 4.51 MIL/uL (4.20-5.40); RED CELL DISTRIBUTION WIDTH 15.6 % (11.6-13.7)
[2023-06-18 20:54] LABS: WHITE BLOOD COUNT (AUTO) 33.7 K/uL (4.8-10.8)
[2023-06-18 21:24] LABS: ALANINE AMINOTRANSFERASE 19 U/L (12-78); ALBUMIN 2.3 g/dL (3.4-5.0); ALKALINE PHOSPHATASE 90 U/L (50-136); ANION GAP 16.1 (8-16); ASPARTATE AMINOTRANSFERASE 31 U/L (15-37); CALCIUM 8.3 mg/dL (8.5-10.1); CARBON DIOXIDE 23.7 mmol/L (21-32); CHLORIDE 97 mmol/L (98-107); CREATINE KINASE, TOTAL 34 U/L (26-192); CREATININE 1.2 mg/dL (0.6-1.3); GFR ARICAN-AMERICAN 57 mL/min (>90); GFR NON ARICAN-AMERICAN 47 mL/min (>90); GLUCOSE 174 mg/dL (74-106); LIPASE 60 U/L (73-393); POTASSIUM 3.8 mmol/L (3.5-5.1); SODIUM SERUM 133 mmol/L (136-145); TOTAL BILIRUBIN 0.6 mg/dL (0.0-1.0); TOTAL PROTEIN, SERUM 7.3 g/dL (6.4-8.2); UREA NITROGEN, BLOOD 17 mg/dL (7-18)
[2023-06-18 21:29] LABS: EOSINOPHILS % (MANUAL) 2 % (0-4); LYMPHOCYTES % (MANUAL) 5 % (20-46); MONOCYTES % (MANUAL) 4 % (5-12); PLATELET ESTIMATE ADEQUATE
[2023-06-18 21:46] LABS: LACTIC ACID 1.5 mmol/L (0.4-2.0)
[2023-06-18] MEDS ORDERED: PIPERACILLIN/TAZOBACTAM 3.375 GM VIAL IV ONE (21:55)
[2023-06-18] MEDS ORDERED: NACL 0.9% 1,000 ML IV ONE (21:55)
[2023-06-18] MEDS ORDERED: PIPERACILLIN/TAZOBACTAM 3.375 GM in DEXTROSE 5% 50 ML IV ONE (21:55)
[2023-06-18] MEDS ORDERED: VANCOMYCIN 1,000 MG in DEXTROSE 5% 250 ML IV ONE (21:55)
[2023-06-18] MEDS ORDERED: VANCOMYCIN 1,000 MG VIAL ONE (22:46)
[2023-06-18 22:55] LABS: APPEARANCE,URINE SL CLOUDY (CLEAR); BILIRUBIN,URINE NEGATIVE (NEGATIVE); BLOOD, URINE NEGATIVE (NEGATIVE); COLOR,URINE YELLOW (YELLOW); LEUKOCYTE ESTERASE ,URINE NEGATIVE (NEGATIVE); NITRITE, URINE NEGATIVE (NEGATIVE); PROTEIN,URINE NEGATIVE (NEGATIVE); UGLUCOSE NEGATIVE (NEGATIVE); UROBILINOGEN,URINE 0.2 EU/dL (0.2 - 1)
[2023-06-19] MEDS ORDERED: PRED20TA5 PO (03:23)
[2023-06-19] MEDS ORDERED: POTASSIUM CHLORIDE 10 MEQ TABER PO PRN (03:50)
[2023-06-19] MEDS ORDERED: ZOLPIDEM 5 MG TAB PO PRN (03:50)
[2023-06-19] MEDS ORDERED: ONDANSETRON 4 MG/2 ML VIAL IM/IVP PRN (03:50)
[2023-06-19] MEDS ORDERED: DOCUSATE SODIUM 100 MG GELCAP PO PRN (03:50)
[2023-06-19] MEDS ORDERED: ACETAMINOPHEN 325 MG TAB PO PRN (03:50)
[2023-06-19] MEDS ORDERED: HYDROcodone/APAP 7.5/325 MG 1 TAB PO PRN (03:50)
[2023-06-19] MEDS ORDERED: guaiFENesin DM 200/20 MG-10 ML 10 ML UDC PO PRN (03:50)
[2023-06-19] MEDS: NACL 0.9% 1,000 ML IV SCH ×2 (05:40→16:31)
[2023-06-19] MEDS ORDERED: PIPERACILLIN/TAZOBACTAM 3.375 GM VIAL IV ONE (05:57)
[2023-06-19] MEDS: PIPERACILLIN/TAZOBACTAM 3.375 GM in DEXTROSE 5% 50 ML IV SCH ×3 (05:58→22:07)
[2023-06-19] MEDS ORDERED: VANCOMYCIN PER PHARMACY MC SCH (09:00)
[2023-06-19] MEDS: PANTOPRAZOLE 40 MG TABEC PO SCH (09:00)
[2023-06-19 09:33] LABS: ANION GAP 11.8 (8-16); CARBON DIOXIDE 25.3 mmol/L (21-32); CREATININE 0.8 mg/dL (0.6-1.3); POTASSIUM 3.1 mmol/L (3.5-5.1); TOTAL BILIRUBIN 0.6 mg/dL (0.0-1.0); TOTAL PROTEIN, SERUM 6.7 g/dL (6.4-8.2)
[2023-06-19 09:46] LABS: HEMATOCRIT 34.3 % (36-48); HEMOGLOBIN 10.9 g/dL (12.0-16.0); MEAN CORPUSCULAR HEMOGLOBIN 25 pg (27-31); MEAN CORPUSCULAR HGB CONC 32 g/dL (33-37); MEAN CORPUSCULAR VOLUME 79.4 fL (80-94); PLATELET COUNT (AUTO) 385 K/uL (140-450); RED BLOOD CELL COUNT(AUTO) 4.32 MIL/uL (4.20-5.40); RED CELL DISTRIBUTION WIDTH 15.8 % (11.6-13.7)
[2023-06-19 09:54] LABS: WHITE BLOOD COUNT (AUTO) 26.3 K/uL (4.8-10.8)
[2023-06-19 10:15] LABS: LYMPHOCYTES % (MANUAL) 5 % (20-46)
[2023-06-19 10:16] LABS: EOSINOPHILS % (MANUAL) 4 % (0-4); MONOCYTES % (MANUAL) 4 % (5-12)
[2023-06-19 10:17] LABS: HYPOCHROMASIA 1+
[2023-06-19 14:13] VITALS: PULSE 72; RESP 20; O2SAT 94
[2023-06-19 16:00] VITALS: BP 113/54; PULSE 101; PULSE 109; RESP 20; TEMP 98.2; O2SAT 98
[2023-06-19] MEDS ORDERED: predniSONE 20 MG TAB PO ONE (18:30)
[2023-06-19 20:00] VITALS: BP 95/52; PULSE 96; RESP 18; TEMP 100.8; O2SAT 93
[2023-06-19] MEDS ORDERED: predniSONE 20 MG TAB ONE (20:04)
[2023-06-19] MEDS ORDERED: VANCOMYCIN 1,000 MG in DEXTROSE 5% 250 ML IV SCH (23:00)
[2023-06-19 23:54] VITALS: PULSE 71
[2023-06-20] VITALS: BP 100/59; PULSE 88; RESP 18; TEMP 98.8; O2SAT 95
[2023-06-20] MEDS: NACL 0.9% 1,000 ML IV SCH (02:31)
[2023-06-20 03:52] VITALS: PULSE 69
[2023-06-20 04:00] VITALS: BP 95/48; PULSE 68; RESP 18; TEMP 98; O2SAT 98
[2023-06-20] MEDS: PIPERACILLIN/TAZOBACTAM 3.375 GM in DEXTROSE 5% 50 ML IV SCH (05:36)
[2023-06-20 06:47] LABS: ALBUMIN 1.8 g/dL (3.4-5.0); ANION GAP 13.2 (8-16); CALCIUM 7.8 mg/dL (8.5-10.1); CARBON DIOXIDE 23.3 mmol/L (21-32); CREATININE 0.8 mg/dL (0.6-1.3); POTASSIUM 3.5 mmol/L (3.5-5.1); TOTAL BILIRUBIN 0.5 mg/dL (0.0-1.0); TOTAL PROTEIN, SERUM 6.1 g/dL (6.4-8.2)
[2023-06-20 07:34] LABS: BASOPHILS % (AUTO) 0.2 % (0.0-2.0); EOSINOPHILS # (AUTO) 0.1 K/uL (0-0.4); EOSINOPHILS % (AUTO) 0.2 % (0.0-4.0); HEMOGLOBIN 9.7 g/dL (12.0-16.0); LYMPHOCYTES # (AUTO) 0.6 K/uL (2.5-16.5); LYMPHOCYTES % (AUTO) 2.3 % (20.5-51.1); MEAN CORPUSCULAR HEMOGLOBIN 26 pg (27-31); MEAN CORPUSCULAR HGB CONC 32 g/dL (33-37); MEAN CORPUSCULAR VOLUME 79.3 fL (80-94); MONOCYTES # (AUTO) 0.8 K/uL (0.8-1.0); MONOCYTES % (AUTO) 2.8 % (1.7-9.3); NEUTROPHILS % (AUTO) 94.5 % (42.2-75.2); PLATELET COUNT (AUTO) 407 K/uL (140-450); RED BLOOD CELL COUNT(AUTO) 3.78 MIL/uL (4.20-5.40); RED CELL DISTRIBUTION WIDTH 16.1 % (11.6-13.7)
[2023-06-20 07:39] LABS: WHITE BLOOD COUNT (AUTO) 27.6 K/uL (4.8-10.8)
[2023-06-20] MEDS ORDERED: AMOX-999 PO (08:07)
[2023-06-20] MEDS ORDERED: PRED20TA5 PO (08:07)
[2023-06-20 08:15] VITALS: PULSE 89; RESP 20; O2SAT 99
[2023-06-20] MEDS ORDERED: predniSONE 20 MG TAB PO SCH (09:00)
[2023-06-20] MEDS: PANTOPRAZOLE 40 MG TABEC PO SCH (09:45)
[2023-06-20 11:01] VITALS: BP 125/68; PULSE 68; RESP 20; TEMP 97.1
== END 2023-06-20 11:45 | disposition home or self-care (01) | DRG 720 ==
LOC: MED 18:34 → MTU 06-19 03:49
PROVIDERS: ADMIT Student in an Organized Health Care Education/Training Program; ATTEND Student in an Organized Health Care Education/Training Program
DX: A41.9 Sepsis, unspecified organism (principal); E43 Unspecified severe protein-calorie malnutrition; M06.1 Adult-onset Still's disease; E87.1 Hypo-osmolality and hyponatremia; D63.8 Anemia in other chronic diseases classified elsewhere; K57.90 Diverticulosis of intestine, part unspecified, without perforation or abscess without bleeding; J98.11 Atelectasis; K27.9 Peptic ulcer, site unspecified, unspecified as acute or chronic, without hemorrhage or perforation; R73.03 Prediabetes; K29.90 Gastroduodenitis, unspecified, without bleeding; I10 Essential (primary) hypertension; K21.9 Gastro-esophageal reflux disease without esophagitis; E87.6 Hypokalemia; Z90.49 Acquired absence of other specified parts of digestive tract; Z79.1 Long term (current) use of non-steroidal anti-inflammatories (NSAID); Z79.899 Other long term (current) drug therapy; Z68.27 Body mass index [BMI] 27.0-27.9, adult
CPT/HCPCS: 36415; 71045; 80053; 80202; 81003; 82550; 83605; 83690; 84484; 85025; 87040; 87086; 96361; 96374; 96375; 99285; J2405; J2543; J3370; J7060; J7512; Q0092; Q9967